=== PATIENT | male | born 1985 | race Caucasian/White ===

== ENCOUNTER 2021-01-14 15:51 | Outpatient (REF) | payer OTHER, SELFPAY ==
[2021-01-14 16:26] LABS: MANUAL DIFF FLAG NO
[2021-01-14 16:31] LABS: Basophils Absolute Auto 0.2 X10*3/uL (0.0-0.2); Eosinophils Absolute Auto 0.2 X10*3/uL (0.0-0.4); Eosinophils Percent Auto 1.5 % (0-4); Hematocrit 48.6 % (42-52); Hemoglobin 16.7 g/dl (14.0-18.0); Imm Gran Abs Auto 0.06 X10*3/uL (0.00-0.03); Imm Gran Pct Auto 0.4 % (0.0-0.4); Lymphocytes Percent Auto 20.7 % (20-40); Mean Corpuscular HGB Conc 34.4 g/dl (31.0-36.0); Mean Corpuscular Hemoglobin 29.9 pg (27.0-33.0); Mean Corpuscular Volume 86.9 fL (80-98); Mean Platelet Volume 10.3 fL (9.4-12.4); Neutrophils Percent Auto 69.4 % (45-73); Platelet Count 427 X10*3/uL (160-400); Red Blood Count 5.59 X10*6/uL (4.60-5.80); Red Cell Distribution Width 13.2 % (11.0-16.0); White Blood Count 14.5 X10*3/uL (4.8-10.8)
[2021-01-14 16:52] LABS: Alanine Aminotransferase 43 U/L (0-40); Albumin Level 4.6 g/dL (3.5-5.0); Alkaline Phosphatase 98 U/L (39-117); Anion Gap 16 (12-20); Aspartate Amino Transferase 31 U/L (5-37); Bilirubin Total 0.8 mg/dL (0.0-1.0); Blood Urea Nitrogen 13 mg/dL (9-16); C Reactive Protein 0.64 mg/dL (< or = 0.50); Calcium 9.9 mg/dL (8.4-10.2); Carbon Dioxide 27 mmol/L (22-29); Chloride 99 mmol/L (96-108); Cholesterol 180 mg/dL; Estimated Glomerular Filt Rate > 60; Glucose Fasting 151 mg/dL (60-99); HDL Cholesterol 38 mg/dL; LDL Cholesterol Calculated 87 mg/dl; Potassium 4.6 mmol/L (3.3-5.1); Sodium 137 mmol/L (135-145); Total Protein 7.7 g/dL (6.5-8.0); Triglycerides 275 mg/dL
[2021-01-14 17:10] LABS: Erythrocyte Sedimentation Rate 4 MM/HR (0-15)
[2021-01-14 17:14] LABS: TSH reflex Free T4 1.61 uIU/mL (0.32-4.0)
[2021-01-18 16:56] LABS: Testosterone, Free 52.4 pg/mL (35.0-155.0); Testosterone, Total 222 ng/dL (250-1100)
== END 2021-01-14 15:52 | disposition home or self-care (01) ==
LOC: HO.LAB 15:51
PROVIDERS: PCP Nurse Practitioner Family; Visit Provider Nurse Practitioner Family
DX: R19.4 Change in bowel habit (principal); R53.83 Other fatigue
CPT/HCPCS: 36415; 80053; 80061; 84402; 84403; 84443; 85025; 85652; 86140

== ENCOUNTER 2021-01-21 10:01 | Outpatient (REF) | payer OTHER, SELFPAY ==
--- NOTE | ~2021-01-21 | US_ITS ---
EXAMINATION: US ABDOMEN COMPLETE CLINICAL INFORMATION: Change in bowel habit. COMPARISON: Ultrasound abdomen 09/12/2019. Ultrasound renals 12/30/2015. TECHNIQUE: Real-time imaging of the abdominal viscera. FINDINGS: PANCREAS: Normal. ABDOMINAL AORTA: The proximal, mid, and distal segments are normal in caliber. INFERIOR VENA CAVA: Visualized portions are normal. LIVER: The liver is normal in size. The liver contour is normal. There is diffuse increased liver echogenicity. No focal hepatic lesion. There is no intrahepatic biliary duct dilatation seen. GALLBLADDER: The gallbladder is physiologically distended without evidence of stones, sludge, polyps, or wall thickening. There is echogenic bile or sludge visualized. COMMON BILE DUCT: Normal in caliber measuring 0.71 cm in diameter. RIGHT KIDNEY: There are multiple anechoic cysts. 1. A lower pole cyst measures 2.5 x 2.0 x 2.0 cm with calcification in the wall. 2. Midpole cyst measures 1.3 x 1.2 x 1.3 cm. 3. A midpole cyst measures 1.5 x 1.5 x 1.8 cm. 4. An upper pole cyst measures 1.6 x 1.4 x 1.5 cm. There is echogenic lesion in the upper pole measuring 0.6 x 0.65 x 0.74 cm suggestive of angiomyolipoma. Also visualized an echogenic lesion with shadowing in the midpole likely cortical stone or calcification measuring 0.30 x 0.25 x 0.30 cm. No hydronephrosis or renal calculi. The kidney measures 14.0 cm in maximum dimension. LEFT KIDNEY: There is anechoic cyst in midpole measuring 1.6 x 1.7 x 1.8 cm. There is an echogenic lesion upper pole measuring 0.83 x 0.71 x 0.63 cm. There is no hydronephrosis. No renal calculi or focal parenchymal lesions. The kidney measures 12.6 cm in maximum dimension. SPLEEN: Small echogenic splenule seen previously is not visualized at this time. The spleen measures 15.6 cm in maximum dimension and is enlarged. FREE FLUID: None. US/US abdomen complete IMPRESSION: Diffusely echogenic liver without any focal lesion. Gallbladder echogenic bile versus sludge. No echogenic stone or wall thickening. Mild splenomegaly.
== END 2021-01-21 10:02 | disposition home or self-care (01) ==
LOC: HO.HMGCX 10:01
PROVIDERS: Visit Provider Nurse Practitioner Family
DX: N28.1 Cyst of kidney, acquired (principal); R19.4 Change in bowel habit; D72.829 Elevated white blood cell count, unspecified
CPT/HCPCS: 76700

== ENCOUNTER 2021-03-19 14:00 | Outpatient (REF) | payer OTHER, SELFPAY ==
[2021-03-19 15:41] LABS: MANUAL DIFF FLAG NO
[2021-03-19 15:50] LABS: Basophils Absolute Auto 0.1 X10*3/uL (0.0-0.2); Basophils Percent Auto 0.9 % (0-2); Eosinophils Absolute Auto 0.2 X10*3/uL (0.0-0.4); Eosinophils Percent Auto 1.2 % (0-4); Hematocrit 45.8 % (42-52); Hemoglobin 15.5 g/dl (14.0-18.0); Imm Gran Abs Auto 0.07 X10*3/uL (0.00-0.03); Imm Gran Pct Auto 0.5 % (0.0-0.4); Lymphocytes Absolute Auto 2.6 X10*3/uL (1.2-4.9); Mean Corpuscular HGB Conc 33.8 g/dl (31.0-36.0); Mean Corpuscular Hemoglobin 29.6 pg (27.0-33.0); Mean Corpuscular Volume 87.6 fL (80-98); Mean Platelet Volume 10.7 fL (9.4-12.4); Monocytes Percent Auto 7.5 % (2-11); Neutrophils Absolute Auto 8.9 X10*3/uL (2.0-8.3); Neutrophils Percent Auto 69.9 % (45-73); Platelet Count 368 X10*3/uL (160-400); Red Blood Count 5.23 X10*6/uL (4.60-5.80); Red Cell Distribution Width 13.2 % (11.0-16.0); White Blood Count 12.8 X10*3/uL (4.8-10.8)
[2021-03-19 15:52] LABS: C Reactive Protein 0.87 mg/dL (< or = 0.50)
[2021-03-20 21:52] LABS: Gliadin Deamidated IgA Ab 7 Units; Gliadin Deamidated IgG Ab 3 Units; Transglutaminase Ab IgG 1 U/mL; Transglutaminase IgA 1 U/mL
== END 2021-03-19 14:01 | disposition home or self-care (01) ==
LOC: HO.LAB 14:00
PROVIDERS: PCP Nurse Practitioner Family; Referring Provider Nurse Practitioner Family; Visit Provider Nurse Practitioner
DX: R19.7 Diarrhea, unspecified (principal); K82.8 Other specified diseases of gallbladder; R10.9 Unspecified abdominal pain; D72.829 Elevated white blood cell count, unspecified; R68.81 Early satiety; E11.9 Type 2 diabetes mellitus without complications; Z96.41 Presence of insulin pump (external) (internal)
CPT/HCPCS: 81479; 82397; 83516; 83520; 85025; 86140; 88346; 88350

== ENCOUNTER 2021-03-24 06:00 | Outpatient (REF) | payer OTHER, SELFPAY ==
[2021-03-25 11:51] LABS: CDIFF Ag Negative (Negative); CDIFF Internal ctrl Dots and bkg OK (V); CDiff Toxin Negative (Negative)
== END 2021-03-24 06:01 | disposition home or self-care (01) ==
LOC: HO.LNP 06:00
PROVIDERS: Visit Provider Nurse Practitioner
DX: R19.7 Diarrhea, unspecified (principal)
CPT/HCPCS: 87324; 87449

== ENCOUNTER 2021-03-25 10:18 | Outpatient (REF) | payer OTHER, SELFPAY | END 2021-03-25 10:19 | disposition home or self-care (01) | LOC: HO.LNP 10:18 | PROVIDERS: Visit Provider Nurse Practitioner | DX: Z13.89 Encounter for screening for other disorder (principal) ==

== ENCOUNTER → 2021-04-23 14:26 | Outpatient (BNVA) | payer OTHER, SELFPAY | PROVIDERS: PCP Nurse Practitioner Family; Referring Provider Nurse Practitioner Family; Visit Provider Nurse Practitioner | DX: K82.8 Other specified diseases of gallbladder (principal); K58.2 Mixed irritable bowel syndrome; D72.829 Elevated white blood cell count, unspecified; R68.81 Early satiety; R19.7 Diarrhea, unspecified; R10.9 Unspecified abdominal pain | CPT/HCPCS: 99212 ==

== ENCOUNTER → 2021-05-06 08:52 | Outpatient (REF) | payer OTHER, SELFPAY ==
--- NOTE | ~2021-05-06 | NM_ITS ---
EXAMINATION: NM BILIARY TRACT WITH ORAL FATTY MEAL CLINICAL INFORMATION: Abdominal pain. COMPARISON: No previous biliary scan is available for comparison. Abdominal ultrasound dated 01/21/2021 is available for comparison. TECHNIQUE: Serial gamma scintillation camera images were obtained over the abdomen for a total observation period of 120 minutes following the intravenous administration of 5.0 mCi Tc-99m Mebrofenin. FINDINGS: There is good concentration of activity in the liver by 5 minutes post injection. Biliary activity is visualized by 15 minutes. The gallbladder is well visualized by 35 minutes. Small bowel is well visualized by 18 minutes. At 60 minutes post Mebrofenin injection, 8 ounces of Ensure-plus Brand was administered orally and an additional 60 minutes of images were obtained. There is good emptying of the gallbladder following ingestion of the fatty meal. At the end of the study there is good clearance of activity from the liver and visualization of diffuse small bowel activity. The calculated gallbladder ejection fraction is 49% (normal gallbladder ejection fraction using Ensure supplement orally is greater than 33%). NM/NM hepatobiliary wo pharm IMPRESSION: Visualization of the gallbladder is evidence of a patent cystic duct and strong evidence against the diagnosis of acute cholecystitis. The common bile duct is patent. Gallbladder emptying and ejection fraction are normal. Liver function appears normal.
== END ==
LOC: HO.NUCMED 08:52
PROVIDERS: Visit Provider Nurse Practitioner
DX: R10.9 Unspecified abdominal pain (principal); K82.8 Other specified diseases of gallbladder; R19.7 Diarrhea, unspecified; D72.829 Elevated white blood cell count, unspecified
CPT/HCPCS: 78226; A9537

== ENCOUNTER 2021-05-07 08:48 | Outpatient (REF) | payer OTHER, SELFPAY ==
[2021-05-07 13:57] LABS: Creatinine Urine 135.41 mg/dL; Microalbum/Creatinine Ratio Ur 16.2 ug/mg cr
== END 2021-05-07 08:49 | disposition home or self-care (01) ==
LOC: HO.10HDL 08:48
PROVIDERS: PCP Nurse Practitioner Family; Visit Provider Nurse Practitioner Gerontology
DX: E11.9 Type 2 diabetes mellitus without complications (principal)
CPT/HCPCS: 82043; 82947; 83036; 99212

== ENCOUNTER → 2021-05-19 07:48 | Outpatient (REF) | payer OTHER, SELFPAY ==
--- NOTE | ~2021-05-19 | NM_ITS ---
EXAMINATION: RADIONUCLIDE SOLID FOOD GASTRIC EMPTYING 4-HOUR STUDY CLINICAL INFORMATION: Early satiety. COMPARISON: No previous gastric emptying study is available for comparison. TECHNIQUE: A standard meal consisting of 4 oz of Egg Beaters brand tagged with 920 microcuries Tc-99m Sulfur Colloid, 8 oz water and 2 slices of toast with jelly was administered orally to the patient. Images were obtained using a dual head gamma camera in the anterior and posterior projections over of the stomach immediately post ingestion and at hourly intervals up to 3 hours post ingestion. Images were not obtained at 4 hours due to the minimal retention at 3 hours. The anterior and posterior counts at each time interval were averaged using the geometric mean and expressed as percentage of the immediate post ingestion counts. FINDINGS: There is good visualization of activity in the stomach immediately post ingestion. As the study progresses, there is good clearance of activity from the stomach and visualization of progressively increasing small bowel activity. By the end of the study, there is almost no retention noted in the stomach. Retention in the stomach at each time interval was: 1 hour 43% (normal 37%-90%) 2 hours 12% (normal 30%-60%) 3 hours 5% 4 hours (Not Obtained) (normal 0%-10%) NM/NM gastric emptying study IMPRESSION: Normal solid food gastric emptying study.
== END ==
LOC: HO.NUCMED 07:48
PROVIDERS: Visit Provider Nurse Practitioner
DX: R68.81 Early satiety (principal)
CPT/HCPCS: 78264; A9541

== ENCOUNTER → 2021-06-22 14:27 | Outpatient (BNVA) | payer OTHER, SELFPAY | PROVIDERS: PCP Nurse Practitioner Family; Referring Provider Nurse Practitioner Family; Visit Provider Nurse Practitioner | DX: K58.2 Mixed irritable bowel syndrome (principal); R68.81 Early satiety; D72.829 Elevated white blood cell count, unspecified; Z87.19 Personal history of other diseases of the digestive system | CPT/HCPCS: 99212 ==

== ENCOUNTER → 2021-07-13 14:26 | Outpatient (BNVA) | payer OTHER, SELFPAY | PROVIDERS: PCP Nurse Practitioner Family; Visit Provider Nurse Practitioner ==

== ENCOUNTER → 2021-07-20 13:45 | Outpatient (BNVA) | payer OTHER, SELFPAY | PROVIDERS: PCP Nurse Practitioner Family; Visit Provider Nurse Practitioner Gerontology ==

== ENCOUNTER → 2021-08-17 10:56 | Outpatient (BNVA) | payer OTHER, SELFPAY | PROVIDERS: PCP Nurse Practitioner Family; Visit Provider Nurse Practitioner Gerontology | DX: E11.65 Type 2 diabetes mellitus with hyperglycemia (principal) | CPT/HCPCS: 82947; 83036; 96372; J1815 ==

== ENCOUNTER 2021-08-19 09:38 | Outpatient (REF) | payer OTHER, SELFPAY ==
[2021-08-19 09:55] LABS: MANUAL DIFF FLAG NO
[2021-08-19 10:43] LABS: Basophils Absolute Auto 0.1 X10*3/uL (0.0-0.2); Basophils Percent Auto 1.2 % (0-2); Eosinophils Absolute Auto 0.2 X10*3/uL (0.0-0.4); Eosinophils Percent Auto 2.1 % (0-4); Hematocrit 42.3 % (42-52); Hemoglobin 14.7 g/dl (14.0-18.0); Imm Gran Abs Auto 0.07 X10*3/uL (0.00-0.03); Imm Gran Pct Auto 0.7 % (0.0-0.4); Lymphocytes Absolute Auto 2.5 X10*3/uL (1.2-4.9); Mean Corpuscular HGB Conc 34.8 g/dl (31.0-36.0); Mean Corpuscular Hemoglobin 30.5 pg (27.0-33.0); Mean Corpuscular Volume 87.8 fL (80-98); Mean Platelet Volume 10.4 fL (9.4-12.4); Monocytes Absolute Auto 0.8 X10*3/uL (0.1-1.2); Monocytes Percent Auto 7.9 % (2-11); Neutrophils Absolute Auto 6.8 X10*3/uL (2.0-8.3); Neutrophils Percent Auto 64.1 % (45-73); Platelet Count 337 X10*3/uL (160-400); Red Blood Count 4.82 X10*6/uL (4.60-5.80); Red Cell Distribution Width 13.6 % (11.0-16.0); White Blood Count 10.6 X10*3/uL (4.8-10.8)
[2021-08-19 11:01] LABS: Creatinine Urine 101.89 mg/dL; Microalbum/Creatinine Ratio Ur 14.7 ug/mg cr
[2021-08-19 11:06] LABS: Alanine Aminotransferase 37 U/L (0-40); Alkaline Phosphatase 133 U/L (39-117); Anion Gap 14 (12-20); Aspartate Amino Transferase 22 U/L (5-37); Bilirubin Total 1.2 mg/dL (0.0-1.0); Blood Urea Nitrogen 13 mg/dL (9-16); Calcium 9.2 mg/dL (8.4-10.2); Carbon Dioxide 23 mmol/L (22-29); Chloride 99 mmol/L (96-108); Cholesterol 186 mg/dL; Estimated Glomerular Filt Rate > 60; Glucose Fasting 349 mg/dL (60-99); Potassium 4.8 mmol/L (3.3-5.1); Sodium 131 mmol/L (135-145); Total Protein 6.9 g/dL (6.5-8.0); Triglycerides 773 mg/dL
[2021-08-19 11:24] LABS: HDL Cholesterol 23 mg/dL
[2021-08-19 11:26] LABS: Thyroid Stimulating Hormone 1.32 uIU/mL (0.32-4.0); Vitamin D 25-OH Total 14.2 ng/mL (>30)
== END 2021-08-19 09:39 | disposition home or self-care (01) ==
LOC: HO.LAB 09:38
PROVIDERS: PCP Nurse Practitioner Family; Visit Provider Nurse Practitioner Gerontology
DX: D72.829 Elevated white blood cell count, unspecified (principal); R19.4 Change in bowel habit; E11.65 Type 2 diabetes mellitus with hyperglycemia; E55.9 Vitamin D deficiency, unspecified
CPT/HCPCS: 36415; 80053; 80061; 82043; 82306; 84443; 85025

== ENCOUNTER 2021-09-15 23:32 | Emergency (ER) | payer OTHER, SELFPAY ==
--- NOTE | ~2021-09-15 | XR_ITS ---
EXAMINATION: XR CHEST CLINICAL INFORMATION: Covid positive test, worsening shortness of breath COMPARISON: None TECHNIQUE: 2 views of the chest were obtained. FINDINGS: Lung volumes are symmetric. No focal consolidation is seen. No evidence of pneumothorax, pleural effusion, or pulmonary edema. The cardiomediastinal contour is unremarkable. No acute osseous findings are seen. XR/XR chest 2V IMPRESSION: No acute cardiopulmonary findings.
[2021-09-16 00:11] VITALS: BMI 39.3
[2021-09-16 00:26] VITALS: BP 125/77; PULSE 84; RESP 18; TEMP 36.9; O2SAT 98
[2021-09-16 00:49] LABS: COVID-19 Test Negative (Negative); IDNOW Serial# 55D5AD1C
--- NOTE | 2021-09-16 01:35 | ED.GENADULT ---
HPI - General Adult General Chief complaint: Upper Respiratory Symptoms Stated complaint: COVID+ Time Seen by Provider: 09/16/21 00:45 Source: patient Mode of arrival: ambulatory History of Present Illness HPI narrative: 36-year-old male with past medical history of diabetes presents after having taken a home COVID-19 test that he states was positive and came in for further evaluation because he has a that is 35 weeks . He reports headache, mild nausea with subjective fevers and shortness of breath for a few days. Related Data Previous Rx's Medication Instructions Recorded blood-glucose sensor (Dexcom G6 #3 ea 01/19/21 Sensor) blood-glucose transmitter (Dexcom #1 ea 01/19/21 G6 Transmitter) amoxicillin 500 mg-potassium 1 tab PO BID 10 Days #20 tab 06/22/21 clavulanate 125 mg tablet (Augmentin) pioglitazone 30 mg tablet 30 mg PO DAILY #90 tab 06/22/21 blood-glucose meter (FreeStyle #1 ea 07/07/21 [place] Lite) glucagon 0.5 mg/0.1 mL 1 mg (0.2 mL) SUBCUT Q20M PRN #0.2 07/10/21 subcutaneous syringe ml pen needle, diabetic 32 gauge x #100 ea 07/10/2132 (BD Celina 2nd Gen Pen Needle) aaxbif-gtqkqtil-hkzkygd 1 cap PO QID 30 Days #120 cap 07/13/21 24,000-76,000-120,000 unit capsule,delayed rel (Creon) lubiprostone 8 mcg capsule 8 mcg PO BID 30 Days #60 cap 07/13/21 (Amitiza) atorvastatin 20 mg tablet 20 mg PO BEDTIME #90 tab 07/20/21 blood sugar diagnostic (FreeStyle #150 ea 08/17/21 Lite Strips) blood-glucose meter (FreeStyle #1 ea 08/17/21 Lite Meter) insulin regular hum U-500 conc See Rx Instructions SUBCUT TID 30 08/17/21 (Humulin R U-500 (Conc) Insulin Days #18 ml Kwikpen) lancets 28 gauge (FreeStyle #200 ea 08/17/21 Lancets) cholecalciferol (vitamin D3) 1,250 1,250 mcg PO QWEEK #8 cap 08/24/21 mcg (50,000 unit) capsule cholecalciferol (vitamin D3) 50 50 mcg PO DAILY #30 cap 08/24/21 mcg (2,000 unit) capsule dexamethasone 4 mg tablet 4 mg PO TID 6 Days #18 tab 08/29/21 (Decadron) tramadol 50 mg tablet 50 mg PO BID PRN #14 tab 09/03/21 albuterol sulfate 90 mcg/actuation 2 puff INHALATION Q6H PRN 30 Days 09/15/21 aerosol inhaler #8.5 g pen needle, diabetic 32 gauge x #100 ea 09/15/21 (BD Ultra-Fine Celina Pen Needle) prednisone 50 mg tablet 50 mg PO DAILY 5 Days #5 tab 09/15/21 Allergies Allergy/AdvReac Type Severity Reaction Status Date / Time ibuprofen Allergy Mild unknown Verified 09/12/21 10:01 pyrantel Allergy Mild hives Verified 09/13/21 08:01 ketorolac [From TORADOL] Allergy Unknown GI UPSET Verified 09/12/21 10:01 NSAIDS (Non-Steroidal Allergy Unknown GI UPSET Verified 09/12/21 10:01 Anti-Inflamma [NSAIDS (NON-STEROIDAL ANTI-INFLAMMA] Review of Systems Review of Systems: Pertinent positives and negatives as stated in HPI 10 point review of systems is otherwise negative. [facility] Past Medical History Source: nursing notes reviewed Medical History Chronic osteomyelitis of right ulna DDD (degenerative disc disease), lumbar Diabetes type 2, uncontrolled Hx of pancreatitis Lumbar spinal stenosis Mild sleep apnea Type 2 diabetes mellitus Vitamin D deficiency Surgical History Status post osteotomy Family History Family History Father No problems noted. Mother Graves disease Sister Type 2 diabetes mellitus Social History Social History Alcohol intake: current Patient Tobacco Use Status: Former Tobacco user e-Cigarette/Vaping Use: Currently Using Advance Directives: No Advance Directives Information Provided: Yes Physical Exam Vital Signs: Vital Signs: Last Vital Signs Temp 98.4 F 09/16/21 01:53 Pulse 81 09/16/21 01:53 Resp 18 09/16/21 01:53 BP 124/76 09/16/21 01:53 Pulse Ox 98 09/16/21 01:53 Body Mass Index 39.3 VITAL SIGNS: Reviewed. GENERAL: Well developed, well nourished, in no acute distress. HEAD: Normocephalic/atraumatic EYES: PERRLA, EOMI OROPHARYNX: no oral lesions noted, posterior pharynx clear NECK: Supple, no adenopathy LUNGS: Normal breath sounds. No adventitious sounds or accessory muscle use. SpO2<98> CARDIOVASCULAR: Regular rate and rhythm without noted murmurs, no JVD or lower extremity edema. ABDOMEN: Soft, non-tender, non-distended with bowel sounds. NEUROLOGIC: Alert and oriented x 4. Course Course Course Narrative: 36-year-old male with history and clinical presentation consistent with viral syndrome and on review of all investigations there were no acute findings to suggest COVID-19, however patient was encouraged to continue with [id number] Tylenol/ibuprofen as needed for body aches and temperatures greater than 100.4 as well as utilizing his CPAP regularly every night for additional respiratory comfort. On review signs patient is noted to have good oxygenation on room air, and on collateral information gathering he states that his primary care provider has already sent in a prescription for albuterol as well as prednisone for additional symptom relief. He was discharged home in stable condition. Medical Decision Making Lab Data Labs: Lab Results 09/16/21 Range/Units 00:21 COVID-19 (COMPA) Negative (Negative) COVID-19 Clin Com See Note Discharge Plan Discharge Clinical Impression: Viral syndrome Patient Disposition: Home, Self-Care Instructions: Viral Syndrome (ED) Additional Instructions: 1. Use CPAP at night. 2. Resume albuterol/prednisone prescribed by your PCP. 3. Recommend repeat COVID testing in 3-4 days. 4. Over the counter Tylenol/Ibuprofen for bodyaches, fevers, chills. 5. Follow up with your PCP. Return to the ER for worsening symptoms. Prescriptions: No Action (DME) Dexcom G6 Transmitter Device See Rx Instructions .ROUTE .MEDSUPPLY Qty: 1 RF: 3 (DME) Dexcom G6 Sensor Device See Rx Instructions .ROUTE .MEDSUPPLY Qty: 3 RF: 3 pioglitazone 30 mg tablet 30 mg PO DAILY Qty: 90 RF: 2 (DME) blood-glucose meter [FreeStyle [place] Lite] Kit See Rx Instructions .ROUTE .MEDSUPPLY Qty: 1 RF: 0 (DME) pen needle, diabetic [BD Celina 2nd Gen Pen Needle] 32 gauge x 5/32 needle See Rx Instructions .ROUTE .MEDSUPPLY Qty: 100 RF: 6 glucagon 0.5 mg/0.1 mL syringe 1 mg subcut Q20M PRN (Reason: hypoglycemia) Qty: 0.2 RF: 3 cholecalciferol (vitamin D3) 1,250 mcg (50,000 unit) capsule 1,250 mcg PO QWEEK Qty: 8 RF: 0 cholecalciferol (vitamin D3) 50 mcg (2,000 unit) capsule 50 mcg PO DAILY Qty: 30 RF: 11 (DME) pen needle, diabetic [BD Ultra-Fine Celina Pen Needle] 32 gauge x 5/32 needle See Rx Instructions .ROUTE .MEDSUPPLY Qty: 100 RF: 11 prednisone 50 mg tablet 50 mg PO DAILY 5 Days Qty: 5 RF: 0 albuterol sulfate 90 mcg/actuation HFA aerosol inhaler 2 puff inhalation Q6H PRN (Reason: shortness of breath or wheezing) 30 Days Qty: 8.5 RF: 1 tramadol 50 mg tablet 50 mg PO BID PRN (Reason: pain) Qty: 14 RF: 0 dexamethasone [Decadron] 4 mg tablet 4 mg PO TID 6 Days Qty: 18 RF: 0 atorvastatin 20 mg tablet 20 mg PO BEDTIME Qty: 90 RF: 1 amoxicillin-pot clavulanate [Augmentin] 500-125 mg tablet 1 tab PO BID 10 Days Qty: 20 RF: 0 lubiprostone [Amitiza] 8 mcg capsule 8 mcg PO BID 30 Days Qty: 60 RF: 3 Creon 24,000-76,000 -120,000 unit capsule,delayed release(DR/EC) 1 cap PO QID 30 Days Qty: 120 RF: 3 Humulin R U-500 (Conc) Kwikpen 500 unit/mL (3 mL) insulin pen See Rx Instructions subcut TID 30 Days Qty: 18 RF: 0 (DME) FreeStyle Lite Strips Strip See Rx Instructions .ROUTE .MEDSUPPLY Qty: 150 RF: 11 (DME) blood-glucose meter [FreeStyle Lite Meter] Kit See Rx Instructions .ROUTE .MEDSUPPLY Qty: 1 RF: 0 (DME) lancets [FreeStyle Lancets] 28 gauge misc See Rx Instructions .ROUTE .MEDSUPPLY Qty: 200 RF: 11 Referrals: Dwayne Perez FNP-BC [Primary Care Provider] - 2 days Interventions: ED Discharge Assessment Last Done: 09/16/21 01:52 Discharge Date/Time: 09/16/21 01:54
[2021-09-16 01:53] VITALS: BP 124/76; PULSE 81; RESP 18; TEMP 36.9; O2SAT 98
== END 2021-09-16 01:54 | disposition home or self-care (01) ==
PROVIDERS: Emergency Provider Student in an Organized Health Care Education/Training Program; PCP Nurse Practitioner Family
DX: U07.1 COVID-19 (principal); Z79.899 Other long term (current) drug therapy; Z87.891 Personal history of nicotine dependence
CPT/HCPCS: 36415; 71046; 87635; 99283; 99284

== ENCOUNTER → 2021-09-28 12:12 | Outpatient (BNVA) | payer OTHER, SELFPAY | PROVIDERS: PCP Nurse Practitioner Family; Referring Provider Nurse Practitioner Family; Visit Provider Nurse Practitioner | DX: K58.2 Mixed irritable bowel syndrome (principal); E66.01 Morbid (severe) obesity due to excess calories; E11.9 Type 2 diabetes mellitus without complications; B37.89 Other sites of candidiasis; Z68.39 Body mass index [BMI] 39.0-39.9, adult | CPT/HCPCS: 99212 ==

== ENCOUNTER → 2021-10-01 14:23 | Outpatient (BNVA) | payer OTHER, SELFPAY | PROVIDERS: PCP Nurse Practitioner Family; Visit Provider Nurse Practitioner Gerontology | DX: E11.65 Type 2 diabetes mellitus with hyperglycemia (principal); E78.1 Pure hyperglyceridemia; E66.01 Morbid (severe) obesity due to excess calories; Z68.39 Body mass index [BMI] 39.0-39.9, adult; Z79.4 Long term (current) use of insulin | CPT/HCPCS: 82947; 99212 ==

== ENCOUNTER → 2021-10-07 11:01 | Outpatient (BNVA) | payer OTHER, SELFPAY | PROVIDERS: PCP Nurse Practitioner Family; Visit Provider Registered Nurse Diabetes Educator | DX: E11.65 Type 2 diabetes mellitus with hyperglycemia (principal); E66.9 Obesity, unspecified; Z79.4 Long term (current) use of insulin | CPT/HCPCS: 99211 ==

== ENCOUNTER 2021-10-14 23:36 | Emergency (ER) | payer OTHER, SELFPAY | END 2021-10-15 00:22 | disposition left against medical advice (07) | PROVIDERS: Emergency Provider Emergency Medicine | DX: R07.9 Chest pain, unspecified (principal) ==

== ENCOUNTER 2021-10-15 12:27 | Emergency (ER) | payer OTHER, SELFPAY ==
--- NOTE | ~2021-10-15 | CT_ITS ---
EXAMINATION: CT RIGHT LOWER EXTREMITY WITH CONTRAST CLINICAL INFORMATION: Right lower extremity pain, edema and paresthesias. COMPARISON: No similar priors. TECHNIQUE: Axial, coronal and sagittal images of the right lower extremity were obtained following the administration of intravenous contrast (85 mL of Omnipaque 350). FINDINGS: Osseous structures: No evidence of acute fractures or malalignment. No suspicious focal bony lesions. There are a few small nonaggressive appearing sclerotic lesions in the distal femur and proximal tibia which favored to represent bone islands. Small flabella. Tiny osteophytes of the tibiotalar joint reflecting mild degenerative osteoarthritis. No erosions. Soft tissues: There is superficial subcutaneous edema/thickening, which is more prominent in the lateral surface of the thigh. No drainable collection or abscess formation. No unexpected radiopaque foreign bodies. CT/CT lower leg RT w con IMPRESSION: No acute fractures or malalignment. Diffuse soft tissue edema which is more prominent in the lateral surface of the thigh. Correlate clinically for cellulitis/phlegmonous changes. This could also represent gravitational lower extremity edema. No drainable collection or abscess.
--- NOTE | ~2021-10-15 | US_ITS ---
EXAMINATION: US VENOUS ULTRASOUND WITH DOPPLER LOWER EXTREMITY, LEFT CLINICAL INFORMATION: Pain and swelling COMPARISON: None TECHNIQUE: Ultrasound of the deep veins is performed from the hip to the calf with compression sonography and color and pulse Doppler assessment. Spectral analysis with color-flow imaging is performed. FINDINGS: There is normal venous compression and respiratory variation and augmented flow. The visualized common femoral vein, superficial femoral vein, profunda femoral vein, popliteal vein, and the trifurcation region shows no evidence of deep venous thrombosis. There is no significant popliteal fossa cyst. Mild soft tissue swelling. If the patient's symptoms persist, followup ultrasound in 5 days 7 days might be of value to exclude proximal propagation from a non-visualized calf vein. US/US venous duplex LE LT IMPRESSION: No DVT demonstrated in the left lower extremity.
--- NOTE | ~2021-10-15 | US_ITS ---
EXAMINATION: US VENOUS ULTRASOUND WITH DOPPLER LOWER EXTREMITY, RIGHT CLINICAL INFORMATION: Pain and edema COMPARISON: None TECHNIQUE: Ultrasound of the deep veins is performed from the hip to the calf with compression sonography and color and pulse Doppler assessment. Spectral analysis with color-flow imaging is performed. FINDINGS: There is normal venous compression and respiratory variation and augmented flow. The visualized common femoral vein, superficial femoral vein, profunda femoral vein, popliteal vein, and the trifurcation region shows no evidence of deep venous thrombosis. There is no significant popliteal fossa cyst. No popliteal artery aneurysm. US/US venous duplex LE RT IMPRESSION: No acute DVT demonstrated in the right lower extremity.
[2021-10-15 13:02] VITALS: BP 151/75; PULSE 107; RESP 20; TEMP 36.5; O2SAT 96; BMI 39.7
--- NOTE | 2021-10-15 15:44 | ED.LOWEXIN ---
HPI - Extremity Injury (Lower) General Chief Complaint: Extremity Injury, Lower <Lynn Fitzgerald NP - Last Filed: 10/15/21 17:52> Stated Complaint: ?DVT <Lynn Fitzgerald NP - Last Filed: 10/15/21 17:52> Time Seen by Provider: 10/15/21 13:59 <Lynn Fitzgerald NP - Last Filed: 10/15/21 17:52> Source: patient <Lynn Fitzgerald NP - Last Filed: 10/15/21 17:52> Mode of arrival: ambulatory <Lynn Fitzgerald NP - Last Filed: 10/15/21 17:52> Limitations: no limitations <Lynn Fitzgerald NP - Last Filed: 10/15/21 17:52> History of Present Illness HPI Narrative: 36-year-old male with a history of insulin-dependent diabetes, obesity, high cholesterol here with complaints of right calf swelling, pain, intermittent paresthesias over the last 3-4 days. Seen at urgent care and sent in for further evaluation. No injury or trauma. No recent travel, no recent surgery. No history of DVTs or PE. No family history of same. <Lynn Fitzgerald NP - Last Filed: 10/15/21 17:52> Related Data Home Medications: Previous Rx's Medication Instructions Recorded blood-glucose sensor (Dexcom G6 #3 ea 01/19/21 Sensor) blood-glucose transmitter (Dexcom #1 ea 01/19/21 G6 Transmitter) blood-glucose meter (FreeStyle #1 ea 07/07/21 Rembrandt Lite) glucagon 0.5 mg/0.1 mL 1 mg (0.2 mL) SUBCUT Q20M PRN #0.2 07/10/21 subcutaneous syringe ml [id number] 1 cap PO QID 30 Days #120 cap 07/13/21 24,000-76,000-120,000 unit capsule,delayed rel (Creon) atorvastatin 20 mg tablet 20 mg PO BEDTIME #90 tab 07/20/21 blood sugar diagnostic (FreeStyle #150 ea 08/17/21 Lite Strips) blood-glucose meter (FreeStyle #1 ea 08/17/21 Lite Meter) lancets 28 gauge (FreeStyle #200 ea 08/17/21 Lancets) cholecalciferol (vitamin D3) 1,250 1,250 mcg PO QWEEK #8 cap 08/24/21 mcg (50,000 unit) capsule cholecalciferol (vitamin D3) 50 50 mcg PO DAILY #30 cap 08/24/21 mcg (2,000 unit) capsule albuterol sulfate 90 mcg/actuation 2 puff INHALATION Q6H PRN 30 Days 09/15/21 aerosol inhaler #8.5 g pen needle, diabetic 31 gauge x #100 ea 09/16/2103/15 (BD Ultra-Fine Short Pen Needle) amoxicillin 500 mg-potassium 1 tab PO BID 10 Days #20 tab 09/28/21 clavulanate 125 mg tablet (Augmentin) fluconazole 100 mg tablet 100 mg PO DAILY 5 Days #5 tab 09/28/21 (Diflucan) lubiprostone 24 mcg capsule 24 mcg PO BID 30 Days #60 cap 09/28/21 (Amitiza) fenofibrate 54 mg tablet 54 mg PO DAILY #30 tab 10/01/21 insulin regular hum U-500 conc See Rx Instructions SUBCUT TID 30 10/01/21 (Humulin R U-500 (Conc) Insulin Days #18 ml Kwikpen) tramadol 50 mg tablet 50 mg PO BID PRN #14 tab 10/10/21 furosemide 20 mg tablet (Lasix) 20 mg PO DAILY 20 Days #20 tab 10/15/21 oxycodone-acetaminophen 5 mg-325 1 tab PO TID PRN #9 tab 10/15/21 mg tablet (Percocet) <Lynn Fitzgerald NP - Last Filed: 10/15/21 17:52> Allergies/Adverse Reactions: Allergies Allergy/AdvReac Type Severity Reaction Status Date / Time ibuprofen Allergy Mild unknown Verified 10/15/21 11:33 pyrantel Allergy Mild hives Verified 10/15/21 11:33 ketorolac [From TORADOL] Allergy Unknown GI UPSET Verified 10/15/21 11:33 NSAIDS (Non-Steroidal Allergy Unknown GI UPSET Verified 10/15/21 11:33 Anti-Inflamma [NSAIDS (NON-STEROIDAL ANTI-INFLAMMA] <Lynn Fitzgerald NP - Last Filed: 10/15/21 17:52> Review of Systems Review of Systems: Yes all other systems are reviewed and are negative <Lynn Fitzgerald NP - Last Filed: 10/15/21 17:52> Constitutional: Constitutional: Reports no additional constitutional complaints, Denies body ache(s), Denies chills, Denies fever(s), Denies headache(s) and Denies weakness <Lynn Fitzgerald NP - Last Filed: 10/15/21 17:52> Eyes: Eyes: Reports no additional eye complaints and Denies change in vision <Lynn Fitzgerald PLASTER WHITTLER - Last Filed: 10/15/21 17:52> ENT: Reports system reviewed and no additional complaints, except as documented, Denies dizziness, Denies headache(s), Denies nasal congestion, Denies nasal discharge and Denies neck pain <Lynn Fitzgerald NP - Last Filed: 10/15/21 17:52> Cardiovascular: Cardiovascular: Reports no additional cardiovascular complaints, Denies chest pain, Reports leg edema and Denies dyspnea <Lynn Fitzgerald NP - Last Filed: 10/15/21 17:52> Respiratory: Respiratory: Reports no additional respiratory complaints, Denies cough and Denies dyspnea <Lynn Fitzgerald NP - Last Filed: 10/15/21 17:52> Gastrointestinal: Gastrointestinal: Reports no additional gastrointestinal complaints, Denies abdominal pain, Denies diarrhea, Denies nausea and Denies vomiting <Lynn Fitzgerald NP - Last Filed: 10/15/21 17:52> Genitourinary: Genitourinary: Denies urinary incontinence <Lynn Fitzgerald NP - Last Filed: 10/15/21 17:52> Musculoskeletal: Musculoskeletal: Reports no additional musculoskeletal complaints, Denies back pain, Denies arthralgias, Denies joint swelling, Denies neck pain, Denies numbness and Denies tingling <Lynn Fitzgerald NP - Last Filed: 10/15/21 17:52> Integumentary/Breasts: Skin/Breast: Reports system reviewed and no additional complaints, except as docu and Denies rash <Lynn Fitzgerald NP - Last Filed: 10/15/21 17:52> Neurologic: Reports system reviewed and no additional complaints, except as documented, Denies Abnormal speech present, Denies dizziness, Denies headache(s), Denies numbness, Denies tingling and Denies weakness <Lynn Fitzgerald NP - Last Filed: 10/15/21 17:52> REPLACED BY [facility] Past Medical History Attestation statement: The following information was validated with the patient. <Lynn Fitzgerald NP - Last Filed: 10/15/21 17:52> Source: old records reviewed and nursing notes reviewed <Lynn Fitzgerald NP - Last Filed: 10/15/21 17:52> Medical History: Medical History Chronic osteomyelitis of right ulna DDD (degenerative disc disease), lumbar Diabetes type 2, uncontrolled Diarrhea Hx of pancreatitis Hypertriglyceridemia Lumbar spinal stenosis Mild sleep apnea Obesity due to excess calories Type 2 diabetes mellitus Vitamin D deficiency <Lynn Fitzgerald NP - Last Filed: 10/15/21 17:52> Surgical History: Surgical History Status post osteotomy <Lynn Fitzgerald NP - Last Filed: 10/15/21 17:52> Family History Family History: Family History Father No problems noted. Mother Graves disease Sister Type 2 diabetes mellitus <Lynn Fitzgerald NP - Last Filed: 10/15/21 17:52> Social History Social History: Social History Household Members: Significant Other Alcohol intake: current Alcohol intake frequency: holidays/special occasions only Patient Tobacco Use Status: Former Tobacco user e-Cigarette/Vaping Use: Currently Using Advance Directives: No Advance Directives Information Provided: No <Lynn Fitzgerald NP - Last Filed: 10/15/21 17:52> Physical Exam Vital Signs: Vital Signs: Last Vital Signs Temp 98.7 F 10/15/21 20:37 Pulse 82 10/15/21 20:37 Resp 16 10/15/21 20:37 BP 138/65 10/15/21 20:37 Pulse Ox 98 10/15/21 20:37 BMI result Body Mass Index 39.7 <Lynn Fitzgerald NP - Last Filed: 10/15/21 17:52> Vital Signs: Last Vital Signs Temp 98.7 F 10/15/21 20:37 Pulse 82 10/15/21 20:37 Resp 16 10/15/21 20:37 BP 138/65 10/15/21 20:37 Pulse Ox 98 10/15/21 20:37 BMI result Body Mass Index 39.7 <JEAN CLAUDE German - Last Filed: 10/15/21 22:56> Const: General: cooperative, healthy appearing, comfortable and no acute distress <Lynn Fitzgerald NP - Last Filed: 10/15/21 17:52> Orientation/consciousness: patient oriented x3 <Lynn Fitzgerald NP - Last Filed: 10/15/21 17:52> Limitations: no limitations <Lynn Fitzgerald NP - Last Filed: 10/15/21 17:52> HENMT: Head: Yes normal to inspection <Lynn Fitzgerald NP - Last Filed: 10/15/21 17:52> Ears: hearing grossly normal bilaterally <Lynn Fitzgerald NP - Last Filed: 10/15/21 17:52> General nose exam: Normal external nose present <Lynn Fitzgerald NP - Last Filed: 10/15/21 17:52> Face and sinus: Yes normal facial exam <Lynn Fitzgerald NP - Last Filed: 10/15/21 17:52> Mouth: Normal oral and palatal mucosa present <Lynn Fitzgerald NP - Last Filed: 10/15/21 17:52> Throat: Yes posterior oropharynx normal <Lynn Fitzgerald NP - Last Filed: 10/15/21 17:52> Eyes: General: appearance normal, both eyes and all related structures <Lynn Fitzgerald NP - Last Filed: 10/15/21 17:52> Pupils: Equal, round and reactive pupils present <Lynn Fitzgerald NP - Last Filed: 10/15/21 17:52> Neck: Neck: Yes normal visual inspection <Lynn Fitzgerald PLASTER WHITTLER - Last Filed: 10/15/21 17:52> Chest: Chest palpation & inspection: normal inspection of the chest <Lynn Fitzgerald PLASTER WHITTLER - Last Filed: 10/15/21 17:52> Resp: Effort & Inspection: normal respiratory effort <Lynn Fitzgerald PLASTER WHITTLER - Last Filed: 10/15/21 17:52> Auscultation: clear to auscultation bilaterally <Lynn Fitzgerald PLASTER WHITTLER - Last Filed: 10/15/21 17:52> Cardio: Rate: regular rate <Lynn Fitzgerald PLASTER WHITTLER - Last Filed: 10/15/21 17:52> Rhythm: regular rhythm <Lynn Fitzgerald PLASTER WHITTLER - Last Filed: 10/15/21 17:52> Peripheral pulses: Peripheral pulses 2+ throughout <Lynn Fitzgerald PLASTER WHITTLER - Last Filed: 10/15/21 17:52> GI: Inspection: Yes normal to inspection <Lynn Fitzgerald PLASTER WHITTLER - Last Filed: 10/15/21 17:52> Palpation (GI): Soft to palpation and nontender <Lynn Fitzgerald PLASTER WHITTLER - Last Filed: 10/15/21 17:52> Auscultation: normal bowel sounds <Lynn Fitzgerald PLASTER WHITTLER - Last Filed: 10/15/21 17:52> Back/Spine/Pelvis: Thoracic/Lumbar Spine: thoracic and lumbar spine normal to inspection <Lynn Fitzgerald PLASTER WHITTLER - Last Filed: 10/15/21 17:52> Skin: General skin exam: no rashes or lesions noted <Lynn Fitzgerald PLASTER WHITTLER - Last Filed: 10/15/21 17:52> Neuro: General: patient oriented x3, no focal motor deficits and normal sensation to monofilament <Lynn Fitzgerald PLASTER WHITTLER - Last Filed: 10/15/21 17:52> Cranial nerves: Yes Equal, round and reactive pupils present <Lynn Fitzgerald PLASTER WHITTLER - Last Filed: 10/15/21 17:52> Cognition (Neuro): normal cognition <Lynn Fitzgerald NP - Last Filed: 10/15/21 17:52> Speech: No Abnormal speech present <Lynn Fitzgerald NP - Last Filed: 10/15/21 17:52> Gait exam (Neuro): Normal gait present <Lynn Fitzgerald NP - Last Filed: 10/15/21 17:52> Motor exam (neuro): 5/5 motor strength present throughout <Lynn Fitzgerald NP - Last Filed: 10/15/21 17:52> Extrem: Other: To the right calf there is swelling and tenderness which is worsened with plantar and dorsiflexion. There is swelling which extends over the dorsal foot. Palpable distal pulses noted. There is no warmth or redness. Sensation intact. <Lynn Fitzgerald NP - Last Filed: 10/15/21 17:52> General: Yes normal to inspection <Lynn Fitzgerald NP - Last Filed: 10/15/21 17:52> Course Course Course Narrative: 36-year-old male insulin-dependent diabetic here with right lower extremity pain, swelling and intermittent paresthesias over the last few days. On exam the patient has swelling and tenderness of the entire right leg. Distal pulses are palpated. There is no warmth or redness. There is quite a bit of swelling but the compartments are compressible. On exam sensation is intact. Distal cap refill is normal. Ultrasound is negative for DVT Clinically exam is concerning for DVT, less concerning for cellulitis. However due to history of diabetes will check labs, CT. 1750-Sign out to Santiago SILVERIO pending CT <Lynn Fitzgerald NP - Last Filed: 10/15/21 17:52> Reevaluation(s) Reevaluation #1: I re-evaluated patient noticed patient's left leg also swollen with pitting edema but not as much as right. Patient states both legs have been swollen since Tuesday. BNP will be added and left lower extremity will be added. Patient given oxycodone for pain. I reviewed [facility] they also said left leg was swollen. later during ED shift BNP came back at 321 and left lower extremity ultrasound negative. Patient will be discharged with Lasix. Patient informed this may be early CHF with BNP of 341. Patient form to follow up with primary care provider. Patient informed to return to ED for immediately for any chest pain, shortness of breath, calf pain, coughing up blood or any other concerning symptoms. Both lower extremities negative for redness or warmth to indicate cellulitis. Both lower extremities motor/neuro/vascular exam intact. Both lower extremities negative for ecchymosis to indicate fracture. History physical exam does not indicate compartments syndrome. <JEAN CLAUDE German - Last Filed: 10/15/21 22:56> Time: 22:46 <JEAN CLAUDE German - Last Filed: 10/15/21 22:56> MDM - Extremity Injury (Lower) MDM Narrative Medical decision making narrative: DVT, cellulitis <Lynn Fitzgerald NP - Last Filed: 10/15/21 17:52> Medical Records Attestation: I reviewed the patient's medical records. <Lynn Fitzgerald NP - Last Filed: 10/15/21 17:52> Lab Data Attestation: I reviewed the patient's lab results. <Lynn Fitzgerald NP - Last Filed: 10/15/21 17:52> Result diagrams: : 10/15/21 16:35 10/15/21 16:35 <Lynn Fitzgerald NP - Last Filed: 10/15/21 17:52> Labs: Lab Results 10/15/21 10/15/21 10/15/21 Range/Units 16:35 16:35 16:35 WBC 8.6 (4.8-10.8) X10*3/uL RBC 4.89 (4.60-5.80) X10*6/uL Hgb 14.4 (14.0-18.0) g/dl Hct 43.0 (42.0-52.0) % MCV 87.9 (80.0-98.0) fL MCH 29.4 (27.0-33.0) pg MCHC 33.5 (31.0-36.0) g/dl RDW 13.2 (11.0-16.0) % Plt Count 304 (160-400) X10*3/uL MPV 10.2 (9.4-12.4) fL Immature Gran % (Auto) 0.3 (0.0-0.4) % Neut % (Auto) 65.0 (45-73) % Lymph % (Auto) 23.9 (20-40) % [place] % (Auto) 7.9 (2-11) % Eos % (Auto) 2.1 (0-4) % Baso % (Auto) 0.8 (0-2) % Lymph # (Auto) 2.1 (1.2-4.9) X10*3/uL [place] # (Auto) 0.7 (0.1-1.2) X10*3/uL Eos # (Auto) 0.2 (0.0-0.4) X10*3/uL Baso # (Auto) 0.1 (0.0-0.2) X10*3/uL Abs Immat Gran (auto) 0.03 (0.00-0.03) X10*3/uL Absolute Neuts (auto) 5.6 (2.0-8.3) x10*3/uL Absolute Nucleated RBC 0.000 (0.0-0.012) X10*3/uL Nucleated RBC % (auto) 0.0 (0.0-0.2) /100WBC ESR (0-15) MM/HR PT (9.9-13.0) SEC INR (0.9-1.1) Sodium 137 (135-145) mmol/L Potassium 4.2 (3.3-5.1) mmol/L Chloride 101 (96-108) mmol/L Carbon Dioxide 28 (22-29) mmol/L Anion Gap 12 (12-20) BUN 14 (9-16) mg/dL Creatinine 0.90 (0.5-1.4) mg/dL Estim Creat Clear Calc 154.0 Estimated GFR > 60 Random Glucose 321 H (60-115) mg/dL Lactic Acid 1.2 (0.5-2.0) mmol/L Calcium 9.4 (8.4-10.2) mg/dL C-Reactive Protein 1.45 H (< or = 0.50) mg/dL 10/15/21 10/15/21 Range/Units 16:35 16:35 WBC (4.8-10.8) X10*3/uL RBC (4.60-5.80) X10*6/uL Hgb (14.0-18.0) g/dl Hct (42.0-52.0) % MCV (80.0-98.0) fL MCH (27.0-33.0) pg MCHC (31.0-36.0) g/dl RDW (11.0-16.0) % Plt Count (160-400) X10*3/uL MPV (9.4-12.4) fL Immature Gran % (Auto) (0.0-0.4) % Neut % (Auto) (45-73) % Lymph % (Auto) (20-40) % [place] % (Auto) (2-11) % Eos % (Auto) (0-4) % Baso % (Auto) (0-2) % Lymph # (Auto) (1.2-4.9) X10*3/uL [place] # (Auto) (0.1-1.2) X10*3/uL Eos # (Auto) (0.0-0.4) X10*3/uL Baso # (Auto) (0.0-0.2) X10*3/uL Abs Immat Gran (auto) (0.00-0.03) X10*3/uL Absolute Neuts (auto) (2.0-8.3) x10*3/uL Absolute Nucleated RBC (0.0-0.012) X10*3/uL Nucleated RBC % (auto) (0.0-0.2) /100WBC ESR 7 (0-15) MM/HR PT 11.6 (9.9-13.0) SEC INR 1.0 (0.9-1.1) Sodium (135-145) mmol/L Potassium (3.3-5.1) mmol/L Chloride (96-108) mmol/L Carbon Dioxide (22-29) mmol/L Anion Gap (12-20) BUN (9-16) mg/dL Creatinine (0.5-1.4) mg/dL Estim Creat Clear Calc Estimated GFR Random Glucose (60-115) mg/dL Lactic Acid (0.5-2.0) mmol/L Calcium (8.4-10.2) mg/dL C-Reactive Protein (< or = 0.50) mg/dL <Lynn Fitzgerald, PLASTER WHITTLER - Last Filed: 10/15/21 17:52> Lab Results 10/15/21 10/15/21 10/15/21 Range/Units 16:35 16:35 16:35 WBC 8.6 (4.8-10.8) X10*3/uL RBC 4.89 (4.60-5.80) X10*6/uL Hgb 14.4 (14.0-18.0) g/dl Hct 43.0 (42.0-52.0) % MCV 87.9 (80.0-98.0) fL MCH 29.4 (27.0-33.0) pg MCHC 33.5 (31.0-36.0) g/dl RDW 13.2 (11.0-16.0) % Plt Count 304 (160-400) X10*3/uL MPV 10.2 (9.4-12.4) fL Immature Gran % (Auto) 0.3 (0.0-0.4) % Neut % (Auto) 65.0 (45-73) % Lymph % (Auto) 23.9 (20-40) % [place] % (Auto) 7.9 (2-11) % Eos % (Auto) 2.1 (0-4) % Baso % (Auto) 0.8 (0-2) % Lymph # (Auto) 2.1 (1.2-4.9) X10*3/uL [place] # (Auto) 0.7 (0.1-1.2) X10*3/uL Eos # (Auto) 0.2 (0.0-0.4) X10*3/uL Baso # (Auto) 0.1 (0.0-0.2) X10*3/uL Abs Immat Gran (auto) 0.03 (0.00-0.03) X10*3/uL Absolute Neuts (auto) 5.6 (2.0-8.3) x10*3/uL Absolute Nucleated RBC 0.000 (0.0-0.012) X10*3/uL Nucleated RBC % (auto) 0.0 (0.0-0.2) /100WBC ESR (0-15) MM/HR PT (9.9-13.0) SEC INR (0.9-1.1) Sodium 137 (135-145) mmol/L Potassium 4.2 (3.3-5.1) mmol/L Chloride 101 (96-108) mmol/L Carbon Dioxide 28 (22-29) mmol/L Anion Gap 12 (12-20) BUN 14 (9-16) mg/dL Creatinine 0.90 (0.5-1.4) mg/dL Estim Creat Clear Calc 154.0 Estimated GFR > 60 Random Glucose 321 H (60-115) mg/dL Lactic Acid 1.2 (0.5-2.0) mmol/L Calcium 9.4 (8.4-10.2) mg/dL C-Reactive Protein 1.45 H (< or = 0.50) mg/dL 10/15/21 10/15/21 Range/Units 16:35 16:35 WBC (4.8-10.8) X10*3/uL RBC (4.60-5.80) X10*6/uL Hgb (14.0-18.0) g/dl Hct (42.0-52.0) % MCV (80.0-98.0) fL MCH (27.0-33.0) pg MCHC (31.0-36.0) g/dl RDW (11.0-16.0) % Plt Count (160-400) X10*3/uL MPV (9.4-12.4) fL Immature Gran % (Auto) (0.0-0.4) % Neut % (Auto) (45-73) % Lymph % (Auto) (20-40) % [place] % (Auto) (2-11) % Eos % (Auto) (0-4) % Baso % (Auto) (0-2) % Lymph # (Auto) (1.2-4.9) X10*3/uL [place] # (Auto) (0.1-1.2) X10*3/uL Eos # (Auto) (0.0-0.4) X10*3/uL Baso # (Auto) (0.0-0.2) X10*3/uL Abs Immat Gran (auto) (0.00-0.03) X10*3/uL Absolute Neuts (auto) (2.0-8.3) x10*3/uL Absolute Nucleated RBC (0.0-0.012) X10*3/uL Nucleated RBC % (auto) (0.0-0.2) /100WBC ESR 7 (0-15) MM/HR PT 11.6 (9.9-13.0) SEC INR 1.0 (0.9-1.1) Sodium (135-145) mmol/L Potassium (3.3-5.1) mmol/L Chloride (96-108) mmol/L Carbon Dioxide (22-29) mmol/L Anion Gap (12-20) BUN (9-16) mg/dL Creatinine (0.5-1.4) mg/dL Estim Creat Clear Calc Estimated GFR Random Glucose (60-115) mg/dL Lactic Acid (0.5-2.0) mmol/L Calcium (8.4-10.2) mg/dL C-Reactive Protein (< or = 0.50) mg/dL <JEAN CLAUDE German - Last Filed: 10/15/21 22:56> Imaging Data Venous US: Attestation: I personally reviewed and interpreted this imaging study as follows: <Lynn Fitzgerald NP - Last Filed: 10/15/21 17:52> Radiologist's impression: [place] [id number] Ultrasound Report Signed Patient: Enrrique Treviño MR#: [id number] : 1985 Acct:[id number] Age/Sex: 36 / M ADM Date: 10/15/21 Loc: HO.ED Attending Dr: Ordering Physician: Dona Ellis DO Date of Service: 10/15/21 Procedure(s): US venous duplex LE RT Accession Number(s): [id number] cc: Dona Ellis DO~ EXAMINATION:? US VENOUS ULTRASOUND WITH DOPPLER LOWER EXTREMITY, RIGHT CLINICAL INFORMATION:? Pain and edema COMPARISON:? None TECHNIQUE: Ultrasound of the deep veins is performed from the hip to the calf with compression sonography and color and pulse Doppler assessment. Spectral analysis with color-flow imaging is performed. FINDINGS: There is normal venous compression and respiratory variation and augmented flow. The visualized common femoral vein, superficial femoral vein, profunda femoral vein, popliteal vein, and the trifurcation region shows no evidence of deep venous thrombosis. ? There is no significant popliteal fossa cyst. No popliteal artery aneurysm. US/US venous duplex LE RT IMPRESSION: No acute DVT demonstrated in the right lower extremity. <Lynn Fitzgerald NP - Last Filed: 10/15/21 17:52> Discharge Plan Discharge Clinical Impression: Left leg swelling, Right leg swelling <Lynn Fitzgerald NP - Last Filed: 10/15/21 17:52> Patient Disposition: Home, Self-Care <Lynn Fitzgerald NP - Last Filed: 10/15/21 17:52> Instructions: Leg Edema (ED) <Lynn Fitzgerald NP - Last Filed: 10/15/21 17:52> Additional Instructions: Bilateral leg ultrasound came back negative for blood clot. History physical exam does not indicate cellulitis or abscess. BNP came back 321 which may be early congestive heart failure. You will be discharged with diuretic to help with swelling of legs. Return to the ED immediately for any chest pain, shortness of breath, worsening swelling of legs, redness, red streaks, calf pain, chest pain, shortness of breath, coughing up blood, fever, chills, or any other concerning symptoms. Please follow-up with primary care provider. <Lynn Fitzgerald NP - Last Filed: 10/15/21 17:52> Prescriptions: New furosemide [Lasix] 20 mg tablet 20 mg PO DAILY 20 Days Qty: 20 RF: 0 oxycodone-acetaminophen [Percocet] 5-325 mg tablet 1 tab PO TID PRN (Reason: pain) Qty: 9 RF: 0 No Action (DME) Dexcom G6 Transmitter Device See Rx Instructions .ROUTE .MEDSUPPLY Qty: 1 RF: 3 (DME) Dexcom G6 Sensor Device See Rx Instructions .ROUTE .MEDSUPPLY Qty: 3 RF: 3 (DME) blood-glucose meter [FreeStyle Rembrandt Lite] Kit See Rx Instructions .ROUTE .MEDSUPPLY Qty: 1 RF: 0 glucagon 0.5 mg/0.1 mL syringe 1 mg subcut Q20M PRN (Reason: hypoglycemia) Qty: 0.2 RF: 3 cholecalciferol (vitamin D3) 1,250 mcg (50,000 unit) capsule 1,250 mcg PO QWEEK Qty: 8 RF: 0 cholecalciferol (vitamin D3) 50 mcg (2,000 unit) capsule 50 mcg PO DAILY Qty: 30 RF: 11 albuterol sulfate 90 mcg/actuation HFA aerosol inhaler 2 puff inhalation Q6H PRN (Reason: shortness of breath or wheezing) 30 Days Qty: 8.5 RF: 1 (DME) pen needle, diabetic [BD Ultra-Fine Short Pen Needle] 31 gauge x 5/16 needle See Rx Instructions .Route Qty: 100 RF: 11 tramadol 50 mg tablet 50 mg PO BID PRN (Reason: pain) Qty: 14 RF: 0 atorvastatin 20 mg tablet 20 mg PO BEDTIME Qty: 90 RF: 1 Creon 24,000-76,000 -120,000 unit capsule,delayed release(DR/EC) 1 cap PO QID 30 Days Qty: 120 RF: 3 (DME) FreeStyle Lite Strips Strip See Rx Instructions .ROUTE .MEDSUPPLY Qty: 150 RF: 11 (DME) blood-glucose meter [FreeStyle Lite Meter] Kit See Rx Instructions .ROUTE .MEDSUPPLY Qty: 1 RF: 0 (DME) lancets [FreeStyle Lancets] 28 gauge misc See Rx Instructions .ROUTE .MEDSUPPLY Qty: 200 RF: 11 amoxicillin-pot clavulanate [Augmentin] 500-125 mg tablet 1 tab PO BID 10 Days Qty: 20 RF: 0 lubiprostone [Amitiza] 24 mcg capsule 24 mcg PO BID 30 Days Qty: 60 RF: 6 fluconazole [Diflucan] 100 mg tablet 100 mg PO DAILY 5 Days Qty: 5 RF: 0 fenofibrate 54 mg tablet 54 mg PO DAILY Qty: 30 RF: 6 Humulin R U-500 (Conc) Kwikpen 500 unit/mL (3 mL) insulin pen See Rx Instructions subcut TID 30 Days Qty: 18 RF: 6 <Lynn Fitzgerald NP - Last Filed: 10/15/21 17:52> Stand Alone Forms: Work/School Release <Lynn Fitzgerald NP - Last Filed: 10/15/21 17:52> Print Language: [place]araguan <Lynn Fitzgerald, PLASTER WHITTLER - Last Filed: 10/15/21 17:52>
[2021-10-15 16:20] VITALS: BP 133/74; PULSE 91; RESP 16; TEMP 36.8; O2SAT 100
[2021-10-15 16:41] LABS: MANUAL DIFF FLAG NO
[2021-10-15 16:42] LABS: Basophils Absolute Auto 0.1 X10*3/uL (0.0-0.2); Basophils Percent Auto 0.8 % (0-2); Eosinophils Absolute Auto 0.2 X10*3/uL (0.0-0.4); Eosinophils Percent Auto 2.1 % (0-4); Hemoglobin 14.4 g/dl (14.0-18.0); Imm Gran Abs Auto 0.03 X10*3/uL (0.00-0.03); Imm Gran Pct Auto 0.3 % (0.0-0.4); Lymphocytes Absolute Auto 2.1 X10*3/uL (1.2-4.9); Lymphocytes Percent Auto 23.9 % (20-40); Mean Corpuscular HGB Conc 33.5 g/dl (31.0-36.0); Mean Corpuscular Hemoglobin 29.4 pg (27.0-33.0); Mean Corpuscular Volume 87.9 fL (80.0-98.0); Mean Platelet Volume 10.2 fL (9.4-12.4); Monocytes Absolute Auto 0.7 X10*3/uL (0.1-1.2); Monocytes Percent Auto 7.9 % (2-11); Neutrophils Absolute Auto 5.6 x10*3/uL (2.0-8.3); Platelet Count 304 X10*3/uL (160-400); Red Blood Count 4.89 X10*6/uL (4.60-5.80); Red Cell Distribution Width 13.2 % (11.0-16.0); White Blood Count 8.6 X10*3/uL (4.8-10.8)
[2021-10-15 16:48] LABS: Prothrombin Time 11.6 SEC (9.9-13.0)
[2021-10-15 16:54] LABS: Lactic Acid 1.2 mmol/L (0.5-2.0)
[2021-10-15 16:58] LABS: Anion Gap 12 (12-20); Blood Urea Nitrogen 14 mg/dL (9-16); C Reactive Protein 1.45 mg/dL (< or = 0.50); Calcium 9.4 mg/dL (8.4-10.2); Carbon Dioxide 28 mmol/L (22-29); Chloride 101 mmol/L (96-108); Estimated Glomerular Filt Rate > 60; Glucose Random 321 mg/dL (60-115); Potassium 4.2 mmol/L (3.3-5.1); Sodium 137 mmol/L (135-145)
[2021-10-15 17:21] LABS: Erythrocyte Sedimentation Rate 7 MM/HR (0-15)
[2021-10-15] MEDS: iohexoL 350 MG/ML 100 ML INFUS..BTL 85 ML IV (18:05)
[2021-10-15 20:37] VITALS: BP 138/65; PULSE 82; RESP 16; TEMP 37.1; O2SAT 98
--- NOTE | 2021-10-15 20:40 | PC.NURSE ---
pt a&o, no sob or chest pain. CMS and pedal pulses intact. pt has 5/10 pain. provider made aware. Will continue to monitor.
[2021-10-15] MEDS: oxyCODONE HCl Immed Release 5 MG TABLET PO (21:27)
--- NOTE | 2021-10-15 21:30 | PC.NURSE ---
medicated per mar.
--- NOTE | 2021-10-15 21:54 | PC.NURSE ---
pt taken to ultra sound. Will continue to monitor
== END 2021-10-15 23:02 | disposition home or self-care (01) ==
PROVIDERS: Nurse Practitioner Family; Emergency Provider Emergency Medicine; PCP Nurse Practitioner Family
DX: M79.661 Pain in right lower leg (principal); M79.662 Pain in left lower leg; R60.0 Localized edema; E11.9 Type 2 diabetes mellitus without complications; I10 Essential (primary) hypertension; Z79.4 Long term (current) use of insulin
CPT/HCPCS: 36415; 73701; 80048; 83605; 85025; 85610; 85652; 86140; 87040; 93971; 99284; Q9967

== ENCOUNTER 2021-10-17 21:55 | Emergency (ER) | payer OTHER, SELFPAY ==
--- NOTE | 2021-10-17 | ECG_ITS ---
Test Reason : WEAKNESS,FEVER Blood Pressure : / mmHG Vent. Rate : 108 BPM Atrial Rate : 108 BPM P-R Int : 134 ms QRS Dur : 064 ms QT Int : 332 ms P-R-T Axes : 029 -28 050 degrees QTc Int : 444 ms Sinus tachycardia with Premature atrial complexes Inferior infarct , age undetermined Poor R wave progression Abnormal ECG When compared with ECG of 12-SEP-2015 08:10, Possible Inferior infarct is now Present Referred By: Generic ED Physician Electronically Signed By:KAYE HUSSEIN MD
--- NOTE | ~2021-10-17 | XR_ITS ---
EXAMINATION: XR CHEST CLINICAL INFORMATION: Chest pain. Shortness of breath. COMPARISON: 09/16/2021 TECHNIQUE: Frontal view of the chest was obtained. FINDINGS: The lungs are well expanded. There is no focal consolidation, edema, or effusion. No pneumothorax. The cardiomediastinal silhouette is within normal limits. No acute osseous abnormality. XR/XR chest 1V IMPRESSION: Clear lungs.
[2021-10-17 22:07] VITALS: BP 145/78; PULSE 94; RESP 20; TEMP 36.4; O2SAT 96; BMI 39.6
[2021-10-17 22:25] LABS: MANUAL DIFF FLAG NO
[2021-10-17 22:28] LABS: Basophils Absolute Auto 0.1 X10*3/uL (0.0-0.2); Eosinophils Absolute Auto 0.3 X10*3/uL (0.0-0.4); Eosinophils Percent Auto 3.3 % (0-4); Hematocrit 41.2 % (42.0-52.0); Hemoglobin 14.1 g/dl (14.0-18.0); Imm Gran Abs Auto 0.04 X10*3/uL (0.00-0.03); Imm Gran Pct Auto 0.4 % (0.0-0.4); Lymphocytes Absolute Auto 2.3 X10*3/uL (1.2-4.9); Lymphocytes Percent Auto 23.8 % (20-40); Mean Corpuscular HGB Conc 34.2 g/dl (31.0-36.0); Mean Corpuscular Hemoglobin 29.8 pg (27.0-33.0); Mean Corpuscular Volume 87.1 fL (80.0-98.0); Mean Platelet Volume 10.2 fL (9.4-12.4); Monocytes Absolute Auto 0.7 X10*3/uL (0.1-1.2); Monocytes Percent Auto 7.1 % (2-11); Neutrophils Absolute Auto 6.3 x10*3/uL (2.0-8.3); Neutrophils Percent Auto 64.4 % (45-73); Platelet Count 327 X10*3/uL (160-400); Red Blood Count 4.73 X10*6/uL (4.60-5.80); Red Cell Distribution Width 12.9 % (11.0-16.0); White Blood Count 9.7 X10*3/uL (4.8-10.8)
[2021-10-17 22:43] LABS: COVID-19 Test Negative (Negative)
[2021-10-17 22:52] LABS: Anion Gap 12 (12-20); Blood Urea Nitrogen 14 mg/dL (9-16); Calcium 9.4 mg/dL (8.4-10.2); Carbon Dioxide 26 mmol/L (22-29); Chloride 101 mmol/L (96-108); Creatinine Clr Calc Pharmacy 139.7; Estimated Glomerular Filt Rate > 60; Glucose Random 351 mg/dL (60-115); Potassium 4.1 mmol/L (3.3-5.1); Sodium 135 mmol/L (135-145)
[2021-10-17 22:56] LABS: B Type Natriuretic Peptide < 10 pg/mL (<100); Troponin-I High Sensitivity < 3.5 ng/L (<3.5-35.0)
[2021-10-17 22:58] LABS: Glucose, Whole Blood 296 mg/dL (60-115)
--- NOTE | 2021-10-17 23:46 | ED.CHESTPAIN ---
HPI - Chest Pain General Chief Complaint: Chest Pain Stated Complaint: Chest pain/SOB Time Seen by Provider: 10/17/21 22:58 Source: patient Mode of arrival: ambulatory Limitations: no limitations History of Present Illness HPI narrative: Patient comes to the emergency room complaining intermittent chest pain for year and half, and states that he was recently started on Lasix for lower extremity edema. Patient has been told that he needs a stress test and echocardiogram which was already ordered by his primary care physician. Patient states that today when he was walking up the stairs, patient was almost out of breath at the end of the stairs. Patient states that he has been taking Lasix for his lower extremities but they are not improving. He recently doubled his does of Lasix for 3 days hoping that the lower extremity edema would improve Related Data Previous Rx's Medication Instructions Recorded blood-glucose sensor (Dexcom G6 #3 ea 01/19/21 Sensor) blood-glucose transmitter (Dexcom #1 ea 01/19/21 G6 Transmitter) blood-glucose meter (FreeStyle #1 ea 07/07/21 Dennard Lite) glucagon 0.5 mg/0.1 mL 1 mg (0.2 mL) SUBCUT Q20M PRN #0.2 07/10/21 subcutaneous syringe ml [id number] 1 cap PO QID 30 Days #120 cap 07/13/21 24,000-76,000-120,000 unit capsule,delayed rel (Creon) atorvastatin 20 mg tablet 20 mg PO BEDTIME #90 tab 07/20/21 blood sugar diagnostic (FreeStyle #150 ea 08/17/21 Lite Strips) blood-glucose meter (FreeStyle #1 ea 08/17/21 Lite Meter) lancets 28 gauge (FreeStyle #200 ea 08/17/21 Lancets) cholecalciferol (vitamin D3) 1,250 1,250 mcg PO QWEEK #8 cap 08/24/21 mcg (50,000 unit) capsule cholecalciferol (vitamin D3) 50 50 mcg PO DAILY #30 cap 08/24/21 mcg (2,000 unit) capsule albuterol sulfate 90 mcg/actuation 2 puff INHALATION Q6H PRN 30 Days 09/15/21 aerosol inhaler #8.5 g pen needle, diabetic 31 gauge x #100 ea 09/16/2103/15 (BD Ultra-Fine Short Pen Needle) amoxicillin 500 mg-potassium 1 tab PO BID 10 Days #20 tab 09/28/21 clavulanate 125 mg tablet (Augmentin) fluconazole 100 mg tablet 100 mg PO DAILY 5 Days #5 tab 09/28/21 (Diflucan) lubiprostone 24 mcg capsule 24 mcg PO BID 30 Days #60 cap 09/28/21 (Amitiza) fenofibrate 54 mg tablet 54 mg PO DAILY #30 tab 10/01/21 insulin regular hum U-500 conc See Rx Instructions SUBCUT TID 30 10/01/21 (Humulin R U-500 (Conc) Insulin Days #18 ml Kwikpen) tramadol 50 mg tablet 50 mg PO BID PRN #14 tab 10/10/21 furosemide 20 mg tablet (Lasix) 20 mg PO DAILY 20 Days #20 tab 10/15/21 oxycodone-acetaminophen 5 mg-325 1 tab PO TID PRN #9 tab 10/15/21 mg tablet (Percocet) furosemide 40 mg tablet (Lasix) 40 mg PO DAILY #5 tab 10/18/21 Allergies Allergy/AdvReac Type Severity Reaction Status Date / Time ibuprofen Allergy Mild unknown Verified 10/17/21 22:11 pyrantel Allergy Mild hives Verified 10/17/21 22:11 ketorolac [From TORADOL] Allergy Unknown GI UPSET Verified 10/17/21 22:11 NSAIDS (Non-Steroidal Allergy Unknown GI UPSET Verified 10/17/21 22:11 Anti-Inflamma [NSAIDS (NON-STEROIDAL ANTI-INFLAMMA] PMFSH Past Medical History Medical History Chronic osteomyelitis of right ulna DDD (degenerative disc disease), lumbar Diabetes type 2, uncontrolled Diarrhea Hx of pancreatitis Hypertriglyceridemia Lumbar spinal stenosis Mild sleep apnea Obesity due to excess calories Type 2 diabetes mellitus Vitamin D deficiency Surgical History Status post osteotomy Family History Family History Father No problems noted. Mother Graves disease Sister Type 2 diabetes mellitus Social History Social History Household Members: Significant Other Alcohol intake: current Alcohol intake frequency: holidays/special occasions only Patient Tobacco Use Status: Former Tobacco user e-Cigarette/Vaping Use: Currently Using Advance Directives: No Advance Directives Information Provided: No Physical Exam Vital Signs: Vital Signs: Last Vital Signs Temp 97.5 F 10/17/21 22:07 Pulse 94 10/17/21 22:07 Resp 20 10/17/21 22:07 BP 145/78 H 10/17/21 22:07 Pulse Ox 96 10/17/21 22:07 BMI result Body Mass Index 39.6 Course Course Course Narrative: I discussed the labs and imaging with the patient, patient's BNP is within normal limits, troponin negative. At this time, patient is asymptomatic. Oxygen saturation remained at 97% on room air while ambulating. Patient lower extremity likely secondary to venous insufficiency. Patient instructed to follow-up with his primary care physician. Patient will be taking 40 mg of Lasix once a day for 5 days MDM - Chest Pain Lab Data Result diagrams: 10/17/21 22:13 10/17/21 22:13 Labs: Lab Results 10/17/21 10/17/21 10/17/21 Range/Units 22:13 22:13 22:13 WBC 9.7 (4.8-10.8) X10*3/uL RBC 4.73 (4.60-5.80) X10*6/uL Hgb 14.1 (14.0-18.0) g/dl Hct 41.2 L (42.0-52.0) % MCV 87.1 (80.0-98.0) fL MCH 29.8 (27.0-33.0) pg MCHC 34.2 (31.0-36.0) g/dl RDW 12.9 (11.0-16.0) % Plt Count 327 (160-400) X10*3/uL MPV 10.2 (9.4-12.4) fL Immature Gran % (Auto) 0.4 (0.0-0.4) % Neut % (Auto) 64.4 (45-73) % Lymph % (Auto) 23.8 (20-40) % [place] % (Auto) 7.1 (2-11) % Eos % (Auto) 3.3 (0-4) % Baso % (Auto) 1.0 (0-2) % Lymph # (Auto) 2.3 (1.2-4.9) X10*3/uL [place] # (Auto) 0.7 (0.1-1.2) X10*3/uL Eos # (Auto) 0.3 (0.0-0.4) X10*3/uL Baso # (Auto) 0.1 (0.0-0.2) X10*3/uL Abs Immat Gran (auto) 0.04 H (0.00-0.03) X10*3/uL Absolute Neuts (auto) 6.3 (2.0-8.3) x10*3/uL Absolute Nucleated RBC 0.000 (0.0-0.012) X10*3/uL Nucleated RBC % (auto) 0.0 (0.0-0.2) /100WBC D-Dimer High Sensitivty NG/ML Sodium 135 (135-145) mmol/L Potassium 4.1 (3.3-5.1) mmol/L Chloride 101 (96-108) mmol/L Carbon Dioxide 26 (22-29) mmol/L Anion Gap 12 (12-20) BUN 14 (9-16) mg/dL Creatinine 0.99 (0.5-1.4) mg/dL Estim Creat Clear Calc 139.7 Estimated GFR > 60 POC Glucose (60-115) mg/dL Random Glucose 351 H* (60-115) mg/dL Calcium 9.4 (8.4-10.2) mg/dL Troponin I High Sens < 3.5 (<3.5-35.0) ng/L B-Natriuretic Peptide < 10 (<100) pg/mL COVID-19 (COMPA) (Negative) COVID-19 Clin Com 10/17/21 10/17/21 10/17/21 Range/Units 22:13 22:13 22:55 WBC (4.8-10.8) X10*3/uL RBC (4.60-5.80) X10*6/uL Hgb (14.0-18.0) g/dl Hct (42.0-52.0) % MCV (80.0-98.0) fL MCH (27.0-33.0) pg MCHC (31.0-36.0) g/dl RDW (11.0-16.0) % Plt Count (160-400) X10*3/uL MPV (9.4-12.4) fL Immature Gran % (Auto) (0.0-0.4) % Neut % (Auto) (45-73) % Lymph % (Auto) (20-40) % [place] % (Auto) (2-11) % Eos % (Auto) (0-4) % Baso % (Auto) (0-2) % Lymph # (Auto) (1.2-4.9) X10*3/uL [place] # (Auto) (0.1-1.2) X10*3/uL Eos # (Auto) (0.0-0.4) X10*3/uL Baso # (Auto) (0.0-0.2) X10*3/uL Abs Immat Gran (auto) (0.00-0.03) X10*3/uL Absolute Neuts (auto) (2.0-8.3) x10*3/uL Absolute Nucleated RBC (0.0-0.012) X10*3/uL Nucleated RBC % (auto) (0.0-0.2) /100WBC D-Dimer High Sensitivty NG/ML Sodium (135-145) mmol/L Potassium (3.3-5.1) mmol/L Chloride (96-108) mmol/L Carbon Dioxide (22-29) mmol/L Anion Gap (12-20) BUN (9-16) mg/dL Creatinine (0.5-1.4) mg/dL Estim Creat Clear Calc Estimated GFR POC Glucose 296 H (60-115) mg/dL Random Glucose (60-115) mg/dL Calcium (8.4-10.2) mg/dL Troponin I High Sens (<3.5-35.0) ng/L B-Natriuretic Peptide Cancelled (<100) pg/mL COVID-19 (COMPA) Negative (Negative) COVID-19 Clin Com See Note 10/17/21 Range/Units 23:36 WBC (4.8-10.8) X10*3/uL RBC (4.60-5.80) X10*6/uL Hgb (14.0-18.0) g/dl Hct (42.0-52.0) % MCV (80.0-98.0) fL MCH (27.0-33.0) pg MCHC (31.0-36.0) g/dl RDW (11.0-16.0) % Plt Count (160-400) X10*3/uL MPV (9.4-12.4) fL Immature Gran % (Auto) (0.0-0.4) % Neut % (Auto) (45-73) % Lymph % (Auto) (20-40) % [place] % (Auto) (2-11) % Eos % (Auto) (0-4) % Baso % (Auto) (0-2) % Lymph # (Auto) (1.2-4.9) X10*3/uL [place] # (Auto) (0.1-1.2) X10*3/uL Eos # (Auto) (0.0-0.4) X10*3/uL Baso # (Auto) (0.0-0.2) X10*3/uL Abs Immat Gran (auto) (0.00-0.03) X10*3/uL Absolute Neuts (auto) (2.0-8.3) x10*3/uL Absolute Nucleated RBC (0.0-0.012) X10*3/uL Nucleated RBC % (auto) (0.0-0.2) /100WBC D-Dimer High Sensitivty < 150 NG/ML Sodium (135-145) mmol/L Potassium (3.3-5.1) mmol/L Chloride (96-108) mmol/L Carbon Dioxide (22-29) mmol/L Anion Gap (12-20) BUN (9-16) mg/dL Creatinine (0.5-1.4) mg/dL Estim Creat Clear Calc Estimated GFR POC Glucose (60-115) mg/dL Random Glucose (60-115) mg/dL Calcium (8.4-10.2) mg/dL Troponin I High Sens (<3.5-35.0) ng/L B-Natriuretic Peptide (<100) pg/mL COVID-19 (COMPA) (Negative) COVID-19 Clin Com Imaging Data Chest x-ray: Radiologist's impression: FINDINGS: The lungs are well expanded. There is no focal consolidation, edema, or effusion. No pneumothorax. The cardiomediastinal silhouette is within normal limits. No acute osseous abnormality. XR/XR chest 1V IMPRESSION: Clear lungs. Discharge Plan Discharge Clinical Impression: Bilateral lower extremity edema Patient Disposition: Home, Self-Care Instructions: Leg Edema (ED) Additional Instructions: Please follow-up with your primary care physician tomorrow. If you have any worsening or new symptoms, please return to the emergency room or call 911 Prescriptions: New furosemide [Lasix] 40 mg tablet 40 mg PO DAILY Qty: 5 RF: 0 No Action (DME) Dexcom G6 Transmitter Device See Rx Instructions .ROUTE .MEDSUPPLY Qty: 1 RF: 3 (DME) Dexcom G6 Sensor Device See Rx Instructions .ROUTE .MEDSUPPLY Qty: 3 RF: 3 (DME) blood-glucose meter [CloudPhysicsStyle Dennard Lite] Kit See Rx Instructions .ROUTE .MEDSUPPLY Qty: 1 RF: 0 glucagon 0.5 mg/0.1 mL syringe 1 mg subcut Q20M PRN (Reason: hypoglycemia) Qty: 0.2 RF: 3 cholecalciferol (vitamin D3) 1,250 mcg (50,000 unit) capsule 1,250 mcg PO QWEEK Qty: 8 RF: 0 cholecalciferol (vitamin D3) 50 mcg (2,000 unit) capsule 50 mcg PO DAILY Qty: 30 RF: 11 albuterol sulfate 90 mcg/actuation HFA aerosol inhaler 2 puff inhalation Q6H PRN (Reason: shortness of breath or wheezing) 30 Days Qty: 8.5 RF: 1 (DME) pen needle, diabetic [BD Ultra-Fine Short Pen Needle] 31 gauge x 5/16 needle See Rx Instructions .Route Qty: 100 RF: 11 tramadol 50 mg tablet 50 mg PO BID PRN (Reason: pain) Qty: 14 RF: 0 furosemide [Lasix] 20 mg tablet 20 mg PO DAILY 20 Days Qty: 20 RF: 0 oxycodone-acetaminophen [Percocet] 5-325 mg tablet 1 tab PO TID PRN (Reason: pain) Qty: 9 RF: 0 atorvastatin 20 mg tablet 20 mg PO BEDTIME Qty: 90 RF: 1 Creon 24,000-76,000 -120,000 unit capsule,delayed release(DR/EC) 1 cap PO QID 30 Days Qty: 120 RF: 3 (DME) FreeStyle Lite Strips Strip See Rx Instructions .ROUTE .MEDSUPPLY Qty: 150 RF: 11 (DME) blood-glucose meter [FreeStyle Lite Meter] Kit See Rx Instructions .ROUTE .MEDSUPPLY Qty: 1 RF: 0 (DME) lancets [FreeStyle Lancets] 28 gauge misc See Rx Instructions .ROUTE .MEDSUPPLY Qty: 200 RF: 11 amoxicillin-pot clavulanate [Augmentin] 500-125 mg tablet 1 tab PO BID 10 Days Qty: 20 RF: 0 lubiprostone [Amitiza] 24 mcg capsule 24 mcg PO BID 30 Days Qty: 60 RF: 6 fluconazole [Diflucan] 100 mg tablet 100 mg PO DAILY 5 Days Qty: 5 RF: 0 fenofibrate 54 mg tablet 54 mg PO DAILY Qty: 30 RF: 6 Humulin R U-500 (Conc) Kwikpen 500 unit/mL (3 mL) insulin pen See Rx Instructions subcut TID 30 Days Qty: 18 RF: 6
[2021-10-18] VITALS: BP 139/80; PULSE 79; RESP 18; O2SAT 98
[2021-10-18 00:14] LABS: D Dimer High Sensitivity < 150 NG/ML
[2021-10-18] MEDS: Furosemide 40 MG/4 ML VIAL IVPUSH (01:05)
[2021-10-18 01:11] VITALS: O2SAT 97
== END 2021-10-18 01:36 | disposition home or self-care (01) ==
PROVIDERS: Emergency Provider Emergency Medicine; PCP Nurse Practitioner Family
DX: R60.0 Localized edema (principal); E11.9 Type 2 diabetes mellitus without complications; Z79.899 Other long term (current) drug therapy; Z20.822 Contact with and (suspected) exposure to COVID-19
CPT/HCPCS: 36415; 71045; 80048; 82947; 83880; 84484; 85025; 85379; 87635; 93005; 96374; 99284; J1940

== ENCOUNTER 2021-10-19 11:04 | Inpatient (IN) | payer OTHER, SELFPAY ==
--- NOTE | ~2021-10-19 | XR_ITS ---
EXAMINATION: XR CHEST CLINICAL INFORMATION: Chest pain and shortness of breath. COMPARISON: Previous chest x-ray 10/17/2021 TECHNIQUE: 2 views of the chest were obtained. FINDINGS: No significant abnormality is noted involving the heart, lungs, mediastinum, bony thorax or soft tissues. XR/XR chest 2V IMPRESSION: Unremarkable examination.
--- NOTE | 2021-10-19 11:08 | ECG_ITS ---
Test Reason : abnormal ekg Blood Pressure : / mmHG Vent. Rate : 095 BPM Atrial Rate : 095 BPM P-R Int : 194 ms QRS Dur : 116 ms QT Int : 394 ms P-R-T Axes : 054 -02 036 degrees QTc Int : 495 ms Normal sinus rhythm Minimal voltage criteria for LVH, may be normal variant ( [employer]ryker product ) Prolonged QT Abnormal ECG When compared with ECG of 18-OCT-2021 00:24, Premature atrial complexes are no longer Present QRS duration has increased Minimal criteria for Anterior infarct are no longer Present Criteria for Inferior infarct are no longer Present QT has lengthened Referred By: Araceli Velez Electronically Signed By:RUBEN CABRERA
[2021-10-19 11:26] LABS: MANUAL DIFF FLAG NO
[2021-10-19 11:28] LABS: Basophils Absolute Auto 0.1 X10*3/uL (0.0-0.2); Basophils Percent Auto 0.9 % (0-2); Eosinophils Absolute Auto 0.2 X10*3/uL (0.0-0.4); Eosinophils Percent Auto 2.5 % (0-4); Hematocrit 42.6 % (42.0-52.0); Hemoglobin 14.5 g/dl (14.0-18.0); Imm Gran Abs Auto 0.03 X10*3/uL (0.00-0.03); Imm Gran Pct Auto 0.3 % (0.0-0.4); Lymphocytes Absolute Auto 2.5 X10*3/uL (1.2-4.9); Lymphocytes Percent Auto 26.8 % (20-40); Mean Corpuscular Hemoglobin 29.7 pg (27.0-33.0); Mean Corpuscular Volume 87.1 fL (80.0-98.0); Monocytes Absolute Auto 0.8 X10*3/uL (0.1-1.2); Monocytes Percent Auto 8.3 % (2-11); Neutrophils Absolute Auto 5.8 x10*3/uL (2.0-8.3); Neutrophils Percent Auto 61.2 % (45-73); Platelet Count 335 X10*3/uL (160-400); Red Blood Count 4.89 X10*6/uL (4.60-5.80); Red Cell Distribution Width 13.1 % (11.0-16.0); White Blood Count 9.5 X10*3/uL (4.8-10.8)
[2021-10-19 11:42] LABS: Prothrombin Time 11.6 SEC (9.9-13.0)
[2021-10-19 11:49] LABS: COVID-19 Test Negative (Negative)
[2021-10-19 11:51] LABS: B Type Natriuretic Peptide < 10 pg/mL (<100); Troponin-I High Sensitivity < 3.5 ng/L (<3.5-35.0)
[2021-10-19 11:56] LABS: Alanine Aminotransferase 34 U/L (0-40); Albumin Level 3.9 g/dL (3.5-5.0); Alkaline Phosphatase 117 U/L (39-117); Anion Gap 11 (12-20); Aspartate Amino Transferase 23 U/L (5-37); Bilirubin Total 0.5 mg/dL (0.0-1.0); Blood Urea Nitrogen 20 mg/dL (9-16); Calcium 9.1 mg/dL (8.4-10.2); Carbon Dioxide 29 mmol/L (22-29); Chloride 98 mmol/L (96-108); Estimated Glomerular Filt Rate > 60; Glucose Random 582 mg/dL (60-115); Magnesium 1.7 mg/dL (1.6-2.6); Potassium 4.2 mmol/L (3.3-5.1); Sodium 134 mmol/L (135-145); Total Protein 6.7 g/dL (6.5-8.0)
[2021-10-19 12:11] VITALS: BP 141/90; PULSE 87; RESP 18; TEMP 36; O2SAT 97; BMI 38.2
--- NOTE | 2021-10-19 12:41 | ED.CHESTPAIN ---
HPI - Chest Pain General Chief Complaint: Chest Pain Stated Complaint: ABNORMAL EKG CHEST PAIN SOB Time Seen by Provider: 10/19/21 11:08 Source: patient and old records reviewed History of Present Illness HPI narrative: Patient with recent history of bilateral leg edema and dyspnea on exertion. He has also been having intermittent chest pain for the past several months. He states with any exertion he gets a chest pressure which is relieved with rest. Longest episode was 30 minutes, shortness episodes of several minutes. Occasionally radiates to his left neck or his left arm. He has seen his PCP as well as the ER about the symptoms. He was placed on Lasix which is significantly improved his pedal edema. He re-presented today because he continues to have chest pain symptoms and with the red his my chart report, his EKG read abnormal. He is scheduled for an echocardiogram and a stress test, but does not have his 1st appointment until the end of October. He also states his blood sugars have been out of control despite adequate insulin intake. No changes in diet. Less activity than normal secondary to dyspnea. No recent fevers or chills. He was tested for COVID last month and was negative. Related Data Previous Rx's Medication Instructions Recorded blood-glucose sensor (Dexcom G6 #3 ea 01/19/21 Sensor) blood-glucose transmitter (Dexcom #1 ea 01/19/21 G6 Transmitter) blood-glucose meter (FreeStyle #1 ea 07/07/21 [place]ite) glucagon 0.5 mg/0.1 mL 1 mg (0.2 mL) SUBCUT Q20M PRN #0.2 07/10/21 subcutaneous syringe ml [id number] 1 cap PO QID 30 Days #120 cap 07/13/21 24,000-76,000-120,000 unit capsule,delayed rel (Creon) atorvastatin 20 mg tablet 20 mg PO BEDTIME #90 tab 07/20/21 blood sugar diagnostic (FreeStyle #150 ea 08/17/21 Lite Strips) blood-glucose meter (FreeStyle #1 ea 08/17/21 Lite Meter) lancets 28 gauge (FreeStyle #200 ea 08/17/21 Lancets) cholecalciferol (vitamin D3) 1,250 1,250 mcg PO QWEEK #8 cap 08/24/21 mcg (50,000 unit) capsule cholecalciferol (vitamin D3) 50 50 mcg PO DAILY #30 cap 08/24/21 mcg (2,000 unit) capsule albuterol sulfate 90 mcg/actuation 2 puff INHALATION Q6H PRN 30 Days 09/15/21 aerosol inhaler #8.5 g pen needle, diabetic 31 gauge x #100 ea 09/16/2103/15 (BD Ultra-Fine Short Pen Needle) amoxicillin 500 mg-potassium 1 tab PO BID 10 Days #20 tab 09/28/21 clavulanate 125 mg tablet (Augmentin) fluconazole 100 mg tablet 100 mg PO DAILY 5 Days #5 tab 09/28/21 (Diflucan) lubiprostone 24 mcg capsule 24 mcg PO BID 30 Days #60 cap 09/28/21 (Amitiza) fenofibrate 54 mg tablet 54 mg PO DAILY #30 tab 10/01/21 insulin regular hum U-500 conc See Rx Instructions SUBCUT TID 30 10/01/21 (Humulin R U-500 (Conc) Insulin Days #18 ml Kwikpen) tramadol 50 mg tablet 50 mg PO BID PRN #14 tab 10/10/21 furosemide 20 mg tablet (Lasix) 20 mg PO DAILY 20 Days #20 tab 10/15/21 oxycodone-acetaminophen 5 mg-325 1 tab PO TID PRN #9 tab 10/15/21 mg tablet (Percocet) furosemide 40 mg tablet (Lasix) 40 mg PO DAILY #5 tab 10/18/21 Allergies Allergy/AdvReac Type Severity Reaction Status Date / Time ibuprofen Allergy Mild unknown Verified 10/17/21 22:11 pyrantel Allergy Mild hives Verified 10/17/21 22:11 ketorolac [From TORADOL] Allergy Unknown GI UPSET Verified 10/17/21 22:11 NSAIDS (Non-Steroidal Allergy Unknown GI UPSET Verified 10/17/21 22:11 Anti-Inflamma [NSAIDS (NON-STEROIDAL ANTI-INFLAMMA] Review of Systems Constitutional: Comments: No fevers Cardiovascular: Comments: Chest pain does mention Respiratory: Comments: Dyspnea as mentioned Gastrointestinal: Comments: No nausea vomiting Musculoskeletal: Comments: Bilateral leg edema, right greater than left, improved considerably with Lasix treatment recently Integumentary/Breasts: Comments: No rash Endocrine: Comments: Blood sugars recently out of control [facility] Past Medical History Medical History Chronic osteomyelitis of right ulna DDD (degenerative disc disease), lumbar Diabetes type 2, uncontrolled Diarrhea Hx of pancreatitis Hypertriglyceridemia Lumbar spinal stenosis Mild sleep apnea Obesity due to excess calories Type 2 diabetes mellitus Vitamin D deficiency Surgical History Status post osteotomy Family History Family History Father No problems noted. Mother Graves disease Sister Type 2 diabetes mellitus Social History Social History Household Members: Significant Other Alcohol intake: current Alcohol intake frequency: does not drink Patient Tobacco Use Status: Former Tobacco user e-Cigarette/Vaping Use: Currently Using Use of substances other than those prescribed or required for medical reasons: No Advance Directives: No Advance Directives Information Provided: Yes Physical Exam Vital Signs: Vital Signs: Last Vital Signs Temp 96.8 F 10/19/21 12:11 Pulse 86 10/19/21 12:50 Resp 20 10/19/21 12:50 BP 128/56 L 10/19/21 12:50 Pulse Ox 96 10/19/21 12:50 BMI result Body Mass Index 38.2 Const: Other: Awake alert no acute distress Resp: Other: Clear and equal bilaterally without wheezes rales or rhonchi Cardio: Other: Regular rate and rhythm without murmurs rubs or gallops GI: Other: Nontender Skin: Other: Warm pink and dry without erythema, increased warmth, or rash Neuro: Other: Alert and oriented. No focal neuro deficits Extrem: Other: 1+ bilateral pedal edema, pitting Course Course Course Narrative: Congestive heart failure Lymphedema Cardiomyopathy Diabetic ketoacidosis Hyperglycemia Acute coronary syndrome Unstable angina Blood sugars over 500. Will treat with IV insulin. Will hold on IV normal saline due to recent edema. Await acetone level. Patient's history is concerning for possible new onset diabetes and possible cardiomyopathy. Review of recent visits shows EKG from 10/18 with no acute changes but was slightly different than EKG from 2014 with evidence of inferior infarct age indeterminate. Today's EKG no longer shows the changes. QTC and QRS are slightly prolonged. Given multiple changes on EKG with patient's history, will hospitalize for further treatment and or urgent diagnostics including echocardiogram and Cardiology consultation MDM - Chest Pain Lab Data Result diagrams: 10/19/21 11:21 10/19/21 11:21 Labs: Lab Results 10/19/21 10/19/21 10/19/21 Range/Units 11:21 11:21 11:21 WBC 9.5 (4.8-10.8) X10*3/uL RBC 4.89 (4.60-5.80) X10*6/uL Hgb 14.5 (14.0-18.0) g/dl Hct 42.6 (42.0-52.0) % MCV 87.1 (80.0-98.0) fL MCH 29.7 (27.0-33.0) pg MCHC 34.0 (31.0-36.0) g/dl RDW 13.1 (11.0-16.0) % Plt Count 335 (160-400) X10*3/uL MPV 10.0 (9.4-12.4) fL Immature Gran % (Auto) 0.3 (0.0-0.4) % Neut % (Auto) 61.2 (45-73) % Lymph % (Auto) 26.8 (20-40) % [place] % (Auto) 8.3 (2-11) % Eos % (Auto) 2.5 (0-4) % Baso % (Auto) 0.9 (0-2) % Lymph # (Auto) 2.5 (1.2-4.9) X10*3/uL [place] # (Auto) 0.8 (0.1-1.2) X10*3/uL Eos # (Auto) 0.2 (0.0-0.4) X10*3/uL Baso # (Auto) 0.1 (0.0-0.2) X10*3/uL Abs Immat Gran (auto) 0.03 (0.00-0.03) X10*3/uL Absolute Neuts (auto) 5.8 (2.0-8.3) x10*3/uL Absolute Nucleated RBC 0.000 (0.0-0.012) X10*3/uL Nucleated RBC % (auto) 0.0 (0.0-0.2) /100WBC PT 11.6 (9.9-13.0) SEC INR 1.0 (0.9-1.1) VBG pH (7.32-7.43) VBG pCO2 mmHg VBG pO2 mmHg VBG HCO3 (22-26) mmol/L VBG O2 Saturation % VBG Base Excess mmol/L Sodium 134 L (135-145) mmol/L Potassium 4.2 (3.3-5.1) mmol/L Chloride 98 (96-108) mmol/L Carbon Dioxide 29 (22-29) mmol/L Anion Gap 11 L (12-20) BUN 20 H (9-16) mg/dL Creatinine 1.09 (0.5-1.4) mg/dL Estim Creat Clear Calc TNP Estimated GFR > 60 Random Glucose 582 H* (60-115) mg/dL Calcium 9.1 (8.4-10.2) mg/dL Magnesium 1.7 (1.6-2.6) mg/dL Total Bilirubin 0.5 (0.0-1.0) mg/dL AST 23 (5-37) U/L ALT 34 (0-40) U/L Alkaline Phosphatase 117 (39-117) U/L Troponin I High Sens (<3.5-35.0) ng/L B-Natriuretic Peptide (<100) pg/mL Total Protein 6.7 (6.5-8.0) g/dL Albumin 3.9 (3.5-5.0) g/dL Acetone, Qual (Negative) COVID-19 (COMPA) (Negative) COVID-19 Clin Com 10/19/21 10/19/21 10/19/21 Range/Units 11:21 11:22 12:35 WBC (4.8-10.8) X10*3/uL RBC (4.60-5.80) X10*6/uL Hgb (14.0-18.0) g/dl Hct (42.0-52.0) % MCV (80.0-98.0) fL MCH (27.0-33.0) pg MCHC (31.0-36.0) g/dl RDW (11.0-16.0) % Plt Count (160-400) X10*3/uL MPV (9.4-12.4) fL Immature Gran % (Auto) (0.0-0.4) % Neut % (Auto) (45-73) % Lymph % (Auto) (20-40) % [place] % (Auto) (2-11) % Eos % (Auto) (0-4) % Baso % (Auto) (0-2) % Lymph # (Auto) (1.2-4.9) X10*3/uL [place] # (Auto) (0.1-1.2) X10*3/uL Eos # (Auto) (0.0-0.4) X10*3/uL Baso # (Auto) (0.0-0.2) X10*3/uL Abs Immat Gran (auto) (0.00-0.03) X10*3/uL Absolute Neuts (auto) (2.0-8.3) x10*3/uL Absolute Nucleated RBC (0.0-0.012) X10*3/uL Nucleated RBC % (auto) (0.0-0.2) /100WBC PT (9.9-13.0) SEC INR (0.9-1.1) VBG pH (7.32-7.43) VBG pCO2 mmHg VBG pO2 mmHg VBG HCO3 (22-26) mmol/L VBG O2 Saturation % VBG Base Excess mmol/L Sodium (135-145) mmol/L Potassium (3.3-5.1) mmol/L Chloride (96-108) mmol/L Carbon Dioxide (22-29) mmol/L Anion Gap (12-20) BUN (9-16) mg/dL Creatinine (0.5-1.4) mg/dL Estim Creat Clear Calc Estimated GFR Random Glucose (60-115) mg/dL Calcium (8.4-10.2) mg/dL Magnesium (1.6-2.6) mg/dL Total Bilirubin (0.0-1.0) mg/dL AST (5-37) U/L ALT (0-40) U/L Alkaline Phosphatase (39-117) U/L Troponin I High Sens < 3.5 (<3.5-35.0) ng/L B-Natriuretic Peptide < 10 (<100) pg/mL Total Protein (6.5-8.0) g/dL Albumin (3.5-5.0) g/dL Acetone, Qual Negative (Negative) COVID-19 (COMPA) Negative (Negative) COVID-19 Clin Com See Note 10/19/21 Range/Units 12:38 WBC (4.8-10.8) X10*3/uL RBC (4.60-5.80) X10*6/uL Hgb (14.0-18.0) g/dl Hct (42.0-52.0) % MCV (80.0-98.0) fL MCH (27.0-33.0) pg MCHC (31.0-36.0) g/dl RDW (11.0-16.0) % Plt Count (160-400) X10*3/uL MPV (9.4-12.4) fL Immature Gran % (Auto) (0.0-0.4) % Neut % (Auto) (45-73) % Lymph % (Auto) (20-40) % [place] % (Auto) (2-11) % Eos % (Auto) (0-4) % Baso % (Auto) (0-2) % Lymph # (Auto) (1.2-4.9) X10*3/uL [place] # (Auto) (0.1-1.2) X10*3/uL Eos # (Auto) (0.0-0.4) X10*3/uL Baso # (Auto) (0.0-0.2) X10*3/uL Abs Immat Gran (auto) (0.00-0.03) X10*3/uL Absolute Neuts (auto) (2.0-8.3) x10*3/uL Absolute Nucleated RBC (0.0-0.012) X10*3/uL Nucleated RBC % (auto) (0.0-0.2) /100WBC PT (9.9-13.0) SEC INR (0.9-1.1) VBG pH 7.49 H (7.32-7.43) VBG pCO2 30 mmHg VBG pO2 76 mmHg VBG HCO3 23 (22-26) mmol/L VBG O2 Saturation 95.0 % VBG Base Excess 1.3 mmol/L Sodium (135-145) mmol/L Potassium (3.3-5.1) mmol/L Chloride (96-108) mmol/L Carbon Dioxide (22-29) mmol/L Anion Gap (12-20) BUN (9-16) mg/dL Creatinine (0.5-1.4) mg/dL Estim Creat Clear Calc Estimated GFR Random Glucose (60-115) mg/dL Calcium (8.4-10.2) mg/dL Magnesium (1.6-2.6) mg/dL Total Bilirubin (0.0-1.0) mg/dL AST (5-37) U/L ALT (0-40) U/L Alkaline Phosphatase (39-117) U/L Troponin I High Sens (<3.5-35.0) ng/L B-Natriuretic Peptide (<100) pg/mL Total Protein (6.5-8.0) g/dL Albumin (3.5-5.0) g/dL Acetone, Qual (Negative) COVID-19 (COMPA) (Negative) COVID-19 Clin Com Discharge Plan Discharge Patient Disposition: Admitted As Inpatient Prescriptions: No Action (DME) Dexcom G6 Transmitter Device See Rx Instructions .ROUTE .MEDSUPPLY Qty: 1 RF: 3 (DME) Dexcom G6 Sensor Device See Rx Instructions .ROUTE .MEDSUPPLY Qty: 3 RF: 3 (DME) blood-glucose meter [FreeStyle [place] Lite] Kit See Rx Instructions .ROUTE .MEDSUPPLY Qty: 1 RF: 0 glucagon 0.5 mg/0.1 mL syringe 1 mg subcut Q20M PRN (Reason: hypoglycemia) Qty: 0.2 RF: 3 cholecalciferol (vitamin D3) 1,250 mcg (50,000 unit) capsule 1,250 mcg PO QWEEK Qty: 8 RF: 0 cholecalciferol (vitamin D3) 50 mcg (2,000 unit) capsule 50 mcg PO DAILY Qty: 30 RF: 11 albuterol sulfate 90 mcg/actuation HFA aerosol inhaler 2 puff inhalation Q6H PRN (Reason: shortness of breath or wheezing) 30 Days Qty: 8.5 RF: 1 (DME) pen needle, diabetic [BD Ultra-Fine Short Pen Needle] 31 gauge x 5/16 needle See Rx Instructions .Route Qty: 100 RF: 11 tramadol 50 mg tablet 50 mg PO BID PRN (Reason: pain) Qty: 14 RF: 0 furosemide [Lasix] 20 mg tablet 20 mg PO DAILY 20 Days Qty: 20 RF: 0 oxycodone-acetaminophen [Percocet] 5-325 mg tablet 1 tab PO TID PRN (Reason: pain) Qty: 9 RF: 0 furosemide [Lasix] 40 mg tablet 40 mg PO DAILY Qty: 5 RF: 0 atorvastatin 20 mg tablet 20 mg PO BEDTIME Qty: 90 RF: 1 Creon 24,000-76,000 -120,000 unit capsule,delayed release(DR/EC) 1 cap PO QID 30 Days Qty: 120 RF: 3 (DME) FreeStyle Lite Strips Strip See Rx Instructions .ROUTE .MEDSUPPLY Qty: 150 RF: 11 (DME) blood-glucose meter [FreeStyle Lite Meter] Kit See Rx Instructions .ROUTE .MEDSUPPLY Qty: 1 RF: 0 (DME) lancets [FreeStyle Lancets] 28 gauge misc See Rx Instructions .ROUTE .MEDSUPPLY Qty: 200 RF: 11 amoxicillin-pot clavulanate [Augmentin] 500-125 mg tablet 1 tab PO BID 10 Days Qty: 20 RF: 0 lubiprostone [Amitiza] 24 mcg capsule 24 mcg PO BID 30 Days Qty: 60 RF: 6 fluconazole [Diflucan] 100 mg tablet 100 mg PO DAILY 5 Days Qty: 5 RF: 0 fenofibrate 54 mg tablet 54 mg PO DAILY Qty: 30 RF: 6 Humulin R U-500 (Conc) Kwikpen 500 unit/mL (3 mL) insulin pen See Rx Instructions subcut TID 30 Days Qty: 18 RF: 6
[2021-10-19 12:45] LABS: VBG Base Excess 1.3 mmol/L; VBG HCO3 23 mmol/L (22-26); VBG pCO2 30 mmHg; VBG pH 7.49 (7.32-7.43); VBG pO2 76 mmHg
[2021-10-19 12:45] LABS: Venous Blood Gas Refer to POC result
[2021-10-19 12:50] VITALS: BP 128/56; PULSE 86; RESP 20; O2SAT 96
[2021-10-19 12:53] LABS: Acetone, serum QL Negative (Negative)
[2021-10-19] MEDS: Insulin Regular, Human 100 UNIT/ML 3 ML VIAL 10 UNIT IVPUSH (13:05)
--- NOTE | 2021-10-19 14:13 | PHA.MEDREC ---
Pharmacy Consult ? Medication Reconciliation Pharmacy has completed the medication reconciliation. Patient reports not taking many of his prescribed medications. Patient reports not taking atorvastatin 40 mg, vitamin d3, fenofibrate 54 mg, Creon, and Lubiprostone. Patient reports using Kratom OTC which he reports that he has become dependent on it and is afraid of potential withdrawal. Mireya Fuentes, PharmD
[2021-10-19 14:34] LABS: Glucose, Whole Blood 377 mg/dL (60-115)
[2021-10-19 14:50] VITALS: BP 119/65; PULSE 77; RESP 18; O2SAT 96
[2021-10-19] MEDS: Insulin Glargine,Hum.rec.anlog 100 UNIT/ML 10 ML VIAL 40 UNIT SUBCUT (14:57)
[2021-10-19] MEDS: Enoxaparin Sodium 40 MG/0.4 ML SYRINGE SUBCUT (14:57)
[2021-10-19] MEDS: 0.9 % Sodium Chloride Flush 3 ML SYRINGE IVFLUSH (14:58)
--- NOTE | 2021-10-19 15:29 | PM.IMHP ---
History of Present Illness Date of Service: 10/19/21 Chief Complaint: Chest pain A 36 years old male with PMH of obesity, diabetes, GERD among other who presented to the hospital with complaint of recurrent chest pain and lower extremity swelling. The patient reports that he noticed swelling in his legs over the last 2 weeks and he came to the hospital few days ago where he was prescribed Lasix which helped him at home as he lost significant amount of weight and the swelling started to go down but he noticed more chest pain that became more recurrent mainly associated with exercise. He describes it as central, radiates to his neck or all over his chest associated with sweating sometimes and severe tiredness. Resolved with rest. No nausea, vomiting, change in bowel habit but notice short of breath especially when he is going up stairs. EKG in the emergency showed concern for ST wave changes He was found to have significantly elevated blood sugar of 580 with no acetone. He reports he change multiple medications including insulin over the last 10 years with no good control over his sugar. Admitted for further evaluation and treatment. Review of Systems Review of Systems: No fever, chills or weakness Recurrent episodes of chest pain, palpitation No shortness of breath or coughing No abdominal pain, nausea or vomiting No urinary symptoms No any rash or wounds Swelling lower extremities [facility] Medical History Chronic osteomyelitis of right ulna DDD (degenerative disc disease), lumbar Diabetes type 2, uncontrolled Diarrhea Hx of pancreatitis Hypertriglyceridemia Lumbar spinal stenosis Mild sleep apnea Obesity due to excess calories Type 2 diabetes mellitus Vitamin D deficiency Family History Father No problems noted. Mother Graves disease Sister Type 2 diabetes mellitus Surgical History Status post osteotomy Social History Household Members: Significant Other Alcohol intake: current Alcohol intake frequency: does not drink Patient Tobacco Use Status: Former Tobacco user e-Cigarette/Vaping Use: Currently Using Use of substances other than those prescribed or required for medical reasons: No Advance Directives: No Advance Directives Information Provided: Yes Meds Allergies Allergy/AdvReac Type Severity Reaction Status Date / Time ibuprofen Allergy Mild unknown Verified 10/17/21 22:11 pyrantel Allergy Mild hives Verified 10/17/21 22:11 ketorolac [From TORADOL] Allergy Unknown GI UPSET Verified 10/17/21 22:11 NSAIDS (Non-Steroidal Allergy Unknown GI UPSET Verified 10/17/21 22:11 Anti-Inflamma [NSAIDS (NON-STEROIDAL ANTI-INFLAMMA] Active Medications: Current Medications Acetaminophen (Acetaminophen 325 Mg Tablet) 650 mg PO Q6H PRN PRN Reason: Pain, Mild (Pain Scale 1-3) Albuterol Sulfate (Albuterol Sulfate 90 Mcg 8 Gm Inhaler) 2 puff INHALE Q6H PRN PRN Reason: shortness of breath or wheezing Enoxaparin Sodium (Enoxaparin Sodium 40 Mg/0.4 Ml Syringe) 40 mg SUBCUT Q24H [facility] Last Admin: 10/19/21 14:57 Dose: 40 mg Documented by: Furosemide (Furosemide 20 Mg Tablet) 20 mg PO DAILY [facility]; Protocol Insulin Glargine (Insulin Glargine,Hum.Rec.Anlog 100 Unit/Ml 10 Ml Vial) 40 unit SUBCUT DAILY [facility] Last Admin: 10/19/21 14:57 Dose: 40 unit Documented by: Insulin Glargine (Insulin Glargine,Hum.Rec.Anlog 100 Unit/Ml 10 Ml Vial) 30 unit SUBCUT BEDTIME [facility] Insulin Human Lispro (Insulin Lispro 100 Unit/Ml 3 Ml Vial) 10 unit SUBCUT QIDACHS [facility] Insulin Human Lispro (Insulin Lispro 100 Unit/Ml 3 Ml Vial) 0 unit SUBCUT QIDACHS [facility]; Protocol Nitroglycerin (Nitroglycerin 0.4 Mg Tab.Subl) 0.4 mg SUBLINGUAL Q5MX3 PRN PRN Reason: Chest Pain Ondansetron HCl (Ondansetron Hcl 4 Mg/2 Ml Vial) 4 mg IVPUSH Q8H PRN PRN Reason: Nausea and Vomiting Pharmacy Consult (Consult Rx Perform Med Rec) 1 each MISCELLANE ONCE PRN PRN Reason: Consult order Sodium Chloride (0.9 % Sodium Chloride Flush 3 Ml Syringe) 3 ml IVFLUSH QSHIFT [facility] Last Admin: 10/19/21 14:58 Dose: 3 ml Documented by: Home Medications Medication Instructions Recorded Confirmed Last Taken Type Kratom 5 g PO DAILY 10/19/21 10/19/21 10/19/21 History insulin regular hum U-500 conc 85 unit SUBCUT DAILY@0800 10/19/21 10/19/21 10/18/21 History (Humulin R U-500 (Conc) Insulin Kwikpen) insulin regular hum U-500 conc 85 unit SUBCUT DAILY@1200 10/19/21 10/19/21 10/18/21 History (Humulin R U-500 (Conc) Insulin Kwikpen) insulin regular hum U-500 conc 105 unit SUBCUT DAILY@1700 10/19/21 10/19/21 10/18/21 History (Humulin R U-500 (Conc) Insulin Kwikpen) Physical Exam Vital Signs and Narrative: Vital Signs: Last Vital Signs Temp 96.8 F 10/19/21 12:11 Pulse 77 10/19/21 14:50 Resp 18 10/19/21 14:50 BP 119/65 10/19/21 14:50 Pulse Ox 96 10/19/21 14:50 BMI result Body Mass Index 38.2 Const: Other: Constitutional : Alert, oriented, not in distress, obese Neck : Normal inspection, Supple Cardiovascular : RRR, S1 S2, no lower extremity edema Respiratory : Good bilateral air entry, no crackles, wheezes or rhonchi Gastrointestinal: soft, lax, Normal bowel sounds, Non tender Skin : Warm, Dry Neurological : Alert & oriented x3, No focal deficit Results Labs CBC and Chem 7: 10/19/21 11:21 10/19/21 11:21 Labs: Laboratory Results - last 24 hr 10/19/21 10/19/21 10/19/21 11:21 11:21 11:21 MCV 87.1 MCH 29.7 MCHC 34.0 RDW 13.1 Plt Count 335 MPV 10.0 Immature Gran % (Auto) 0.3 Neut % (Auto) 61.2 Lymph % (Auto) 26.8 [place] % (Auto) 8.3 Eos % (Auto) 2.5 Baso % (Auto) 0.9 Lymph # (Auto) 2.5 [place] # (Auto) 0.8 Eos # (Auto) 0.2 Baso # (Auto) 0.1 Abs Immat Gran (auto) 0.03 Absolute Neuts (auto) 5.8 Absolute Nucleated RBC 0.000 Nucleated RBC % (auto) 0.0 PT 11.6 INR 1.0 VBG pH VBG pCO2 VBG pO2 VBG HCO3 VBG O2 Saturation VBG Base Excess Anion Gap 11 L Estim Creat Clear Calc TNP Estimated GFR > 60 POC Glucose Random Glucose 582 H* Calcium 9.1 Magnesium 1.7 Total Bilirubin 0.5 AST 23 ALT 34 Alkaline Phosphatase 117 Troponin I High Sens B-Natriuretic Peptide Total Protein 6.7 Albumin 3.9 Acetone, Qual COVID-19 (COMPA) COVID-19 Clin Com 10/19/21 10/19/21 10/19/21 11:21 11:22 12:35 MCV MCH MCHC RDW Plt Count MPV Immature Gran % (Auto) Neut % (Auto) Lymph % (Auto) [place] % (Auto) Eos % (Auto) Baso % (Auto) Lymph # (Auto) [place] # (Auto) Eos # (Auto) Baso # (Auto) Abs Immat Gran (auto) Absolute Neuts (auto) Absolute Nucleated RBC Nucleated RBC % (auto) PT INR VBG pH VBG pCO2 VBG pO2 VBG HCO3 VBG O2 Saturation VBG Base Excess Anion Gap Estim Creat Clear Calc Estimated GFR POC Glucose Random Glucose Calcium Magnesium Total Bilirubin AST ALT Alkaline Phosphatase Troponin I High Sens < 3.5 B-Natriuretic Peptide < 10 Total Protein Albumin Acetone, Qual Negative COVID-19 (COMPA) Negative [employer] See Note 10/19/21 10/19/21 12:38 14:30 MCV MCH MCHC RDW Plt Count MPV Immature Gran % (Auto) Neut % (Auto) Lymph % (Auto) [place] % (Auto) Eos % (Auto) Baso % (Auto) Lymph # (Auto) [place] # (Auto) Eos # (Auto) Baso # (Auto) Abs Immat Gran (auto) Absolute Neuts (auto) Absolute Nucleated RBC Nucleated RBC % (auto) PT INR VBG pH 7.49 H VBG pCO2 30 VBG pO2 76 VBG HCO3 23 VBG O2 Saturation 95.0 VBG Base Excess 1.3 Anion Gap Estim Creat Clear Calc Estimated GFR POC Glucose 377 H* Random Glucose Calcium Magnesium Total Bilirubin AST ALT Alkaline Phosphatase Troponin I High Sens B-Natriuretic Peptide Total Protein Albumin Acetone, Qual COVID-19 (COMPA) COVID-19 [email or web address] Com Imaging Radiologist's Impressions: Impressions Chest X-Ray 10/19/21 11:34 IMPRESSION: Unremarkable examination. Assessment and Plan (1) Chest pain: Status: Acute (2) Severe hyperglycemia due to diabetes mellitus: Status: Acute (3) Hyponatremia: Status: Acute A 36 years old male with PMH of obesity, diabetes, GERD among other who presented to the hospital with complaint of recurrent chest pain and lower extremity swelling. Chest pain Recurrent, central EKG changes not specific Troponin negative Given telemetry Get cardiology evaluation Fluid overload In lower extremities mainly, improving To do echo Continue Lasix BMP negative Severe hyperglycemia secondary to diabetes type 2 Diabetic diet Received IV insulin To start Lantus 40 in the morning and 30 at nighttime Humalog 10 units with mealtime Sliding scale Hyponatremia Seems to be pseudohyponatremia with corrected sodium of 137 DVT PPX Lovenox Quality Stroke Does the patient have a stroke diagnosis?: No VTE Prior VTE?: No VTE Risk Level:: Medical - moderate - high VTE Device Contraindication: Treatment Not Indicated VTE Drug Contraindication: N/A - Med Ordered
[2021-10-19 16:12] LABS: Estimated Average Glucose 235 mg/dL; Hemoglobin A1c % 9.8 %
[2021-10-19 17:18] LABS: Glucose, Whole Blood 343 mg/dL (60-115)
--- NOTE | 2021-10-19 17:58 | PC.NURSE ---
PT REFUSING INSULIN ORDERED. ADMITING PROVIDER AWARE AND STATES TO GIVE LANTUS AND THEY WILL CONSULT ENDOCRINE IN THE AM
--- NOTE | 2021-10-19 18:38 | MHC.CM.PN ---
CM met with admitted patient with bed assignment pending. No IMM necessary. A&Ox3. Contact info incorrect. lives with patient. They have a 5 day old baby boy at home. Pt has no services. Has DM testing supplies at home. Unemployed. No HCP on file. HCP reviewed, completed and signed per protocol. Copies given and uploaded into [employer] and [facility] / ?.??. HCP/ Shantel Gonzales ([phone]). D/C plan is home without services. Pt states he will drive himself home. CM to follow for d/c needs.
[2021-10-19 22:00] VITALS: BP 154/86; PULSE 75; RESP 18; TEMP 36; O2SAT 96
[2021-10-19] MEDS: Insulin Glargine,Hum.rec.anlog 100 UNIT/ML 10 ML VIAL 30 UNIT SUBCUT (23:26)
[2021-10-19] MEDS: oxyCODONE HCl Immed Release 5 MG TABLET PO (23:26)
[2021-10-20 01:01] LABS: Glucose, Whole Blood 422 mg/dL (60-115)
[2021-10-20] MEDS: 0.9 % Sodium Chloride Flush 3 ML SYRINGE IVFLUSH ×2 (01:52→10:11)
[2021-10-20 02:31] LABS: Glucose, Whole Blood 403 mg/dL (60-115)
[2021-10-20] MEDS: Insulin Lispro 100 UNIT/ML 3 ML VIAL 10 UNIT SUBCUT (02:34)
--- NOTE | 2021-10-20 02:41 | PC.NURSE ---
PATIENT TRANSFERRED FROM MAIN ED TO ED OVERFLOW AT APPROX., 0150, NOTED BLOOD SUGAR LEVELS HIGH, HOSPITALIST ON DUTY ALERTED, POC RECHECK WITH A RESULT OF 403, PATIENT OFFERED NO COMPLAINTS. HOSPITALIST STATED TO COVER WITH 10 UNITS OF LISPRO INSULIN SC AT THIS TIME. EXPLAINED TO PATIENT, HE WAS AGREEABLE IT APPEARS HE DECLINED EARLIER PER MAR DOCUMENTATION/REPORT. INSULIN ORDERD AT 0235 TO RIGHT UPPER ARM.
[2021-10-20] MEDS: Acetaminophen 325 MG TABLET 650 MG PO ×2 (04:24→19:23)
--- NOTE | 2021-10-20 05:00 | ECG_ITS ---
Test Reason : chest pain Blood Pressure : / mmHG Vent. Rate : 074 BPM Atrial Rate : 074 BPM P-R Int : 214 ms QRS Dur : 120 ms QT Int : 410 ms P-R-T Axes : 044 001 032 degrees QTc Int : 455 ms Sinus rhythm with 1st degree A-V block Non-specific intra-ventricular conduction delay Minimal voltage criteria for LVH, may be normal variant ( Juan product ) Borderline ECG When compared with ECG of 19-OCT-2021 11:11, No significant change was found Referred By: Jenny Mcfadden Electronically Signed By:RUBEN CABRERA
--- NOTE | 2021-10-20 07:30 | CA_ITS ---
Transthoracic Echocardiogram Patient (Last, First, Middle): Enrrique Treviño, Gender: Male Date of : 1985 Age: 36 Procedure Date: 10/20/2021 Procedure Type: Transthoracic Echocardiogram Location: [facility] Height: 180.34 cm Weight: 124.29 kg BSA: 2.41 m2 Heart Rate: bpm BP: 154 / 76 mmHg [employer] Supervisor: Referring MD: Jenny Mcfadden MD Symptoms: Recurrent chest pain, CHF Study Quality: Fair ECG Rhythm: Sinus Conclusions: - The left ventricular systolic function is normal. The visually estimated ejection fraction is between 65-70%. - No obvious valvular pathology seen on this study. Findings Left Ventricle Normal left ventricular cavity size. There is mildly increased left ventricular wall thickness. The left ventricular systolic function is normal. The visually estimated ejection fraction is between 65-70%. There is no evidence of regional wall motion abnormalities. Diastolic function is normal for age. Right Ventricle Normal right ventricular cavity size and systolic function. Atria Both atria are normal in size. Aortic Valve There is a normal trileaflet aortic valve. There is no aortic valve stenosis. There is no aortic valve regurgitation. Mitral Valve The mitral valve appears normal. There is trace mitral valve regurgitation. There is no mitral valve stenosis. Pulmonic Valve The pulmonic valve was not well visualized. Tricuspid Valve Normal tricuspid valve structure. There is trace tricuspid valve regurgitation. The pulmonary artery systolic pressure is normal. Great Vessels Top normal ascending aortic size at 3.4cm. Venous The inferior vena cava was not well visualized. The inferior vena cava collapses greater than 50% with inspiration. Top normal size. Pericardium/Pleural There is no evidence of pericardial effusion. Prior Study Comparison No prior study available for comparison. Recommendations, Care & Conclusions No obvious valvular pathology seen on this study. Measurements 2D Linear Measurements IVSd: 1.23 0.6-0.9/0.6-1.0 cm LVIDd: 5.42 3.9-5.3/4.2-5.9 cm LVIDd Index: 2.25 2.4-3.2/2.2-3.1 cm/m2 LVIDs: 3.04 2.0-3.6 cm LVPWd: 1.28 0.7-1.1 cm Ao Root: 3.50 2.1-3.5 cm LA Diam: 3.90 2.7-3.8/3.0-4.0 cm LAIDs Index: 1.62 1.5-2.3 cm/m2 LV Mass: 353.04 67-162/88-224 g LV Mass Index: 146.49 43-95/49-115 g/m2 LVOT Diam: 2.60 3.0+(-)1.3 cm 2D Systolic Function EF 4C: 74.00 >55% EF 2C: 71.80 >55% EF BiP: 74.20 >55% Mitral Valve MV Pk E: 0.78 MV PK A: 0.55 MV Decel Time: 170.00 E/A: 1.40 E'Lateral: 12.20 E'Medial: 9.36 E/E' Med: 8.40 E/E' Lat: 6.40 PHT: 50.00 MVA PHT: 4.40 Decel [place]: 4.61 Aortic Valve AoV Pk Asad: 1.33 AoV Mn Asad: 0.90 AoV VTI: 0.29 AoV Pk Grad: 7.00 Aov Mn Grad: 4.00 OMAR Cont.VTI: 3.37 LVOT LVOT Pk Asad: 0.96 LVOT Mn Asad: 0.67 LVOT VTI: 0.18 LVOT Pk Grad: 4.00 LVOT Mn Grad: 2.00 LVOT Diam: 2.60 LVOT Area: 5.31 Diastolic Function MV Pk E: 0.78 MV Pk A: 0.55 E/A: 1.40 E'Medial: 9.36 E/E' Med: 8.40 E' Laterial: 12.20 E/E' Lat: 6.40 Right Ventricle TAPSE (mm): 29.00 TVS' Asad: 20.00 Tricuspid Valve TR Pk Asad: 1.59 TR Pk Grad: 10.00 Great Vessels Aorta Ao Root-2D: 3.50 2.0-3.7 cm Ao Asc: 3.40 2.1-3.4 cm Pulmonary Valve PV Pk Asad: 0.87 Peak PV Grad: 3.00 Updated in Other Vendor System with Status of Final Rafita Kaye MD electronically signed on 10/20/2021 12:58:04 PM with status of Final
[2021-10-20 07:41] LABS: Hematocrit 43.1 % (42.0-52.0); Hemoglobin 14.5 g/dl (14.0-18.0); Mean Corpuscular HGB Conc 33.6 g/dl (31.0-36.0); Mean Corpuscular Hemoglobin 29.5 pg (27.0-33.0); Mean Corpuscular Volume 87.6 fL (80.0-98.0); Mean Platelet Volume 10.5 fL (9.4-12.4); Platelet Count 369 X10*3/uL (160-400); Red Blood Count 4.92 X10*6/uL (4.60-5.80); Red Cell Distribution Width 13.2 % (11.0-16.0)
[2021-10-20 08:03] LABS: Glucose, Whole Blood 249 mg/dL (60-115)
[2021-10-20] MEDS: Insulin Lispro 100 UNIT/ML 3 ML VIAL SUBCUT (08:05)
[2021-10-20 08:11] LABS: Anion Gap 9 (12-20); Blood Urea Nitrogen 16 mg/dL (9-16); Calcium 9.2 mg/dL (8.4-10.2); Carbon Dioxide 29 mmol/L (22-29); Chloride 103 mmol/L (96-108); Creatinine Clr Calc Pharmacy 157.8; Estimated Glomerular Filt Rate > 60; Glucose Random 280 mg/dL (60-115); Potassium 4.1 mmol/L (3.3-5.1); Sodium 137 mmol/L (135-145)
--- NOTE | 2021-10-20 08:15 | PC.NURSE ---
pt alert and oriented, skin pwd, respirations even and unlabored. pt reports bilateral leg pain but mostly in his right leg, no peading edema noticed at this time ns on the monitor at the monitor,
[2021-10-20 09:07] VITALS: BP 147/67; PULSE 78; RESP 17; TEMP 36.7; O2SAT 98
[2021-10-20 09:46] LABS: Glucose, Whole Blood 302 mg/dL (60-115)
[2021-10-20] MEDS: ALPRAZolam 0.25 MG TABLET PO (10:11)
[2021-10-20] MEDS: Furosemide 20 MG TABLET PO (10:11)
--- NOTE | 2021-10-20 11:22 | PC.NURSE ---
echo at bedside currently
--- NOTE | 2021-10-20 11:39 | P.CONCA_ITS ---
History of Present Illness History of Present Illness Date of Service: 10/20/21 Chief complaint: Chest pain, hyperglycemia, hyponatremia Narrative: This is a cardiology consultation regarding chest pain and leg swelling. He has a history of obesity, type 2 diabetes, GERD among others. He states that, few days ago he noticed swelling in his right lower extremity and slightly in the left side as well. This led to the presentation but today does not have any swelling whatsoever. Probably because of diuretics. Otherwise, he also gets some chest pain on the left side and this can happen sometimes during rest and sometimes during activity. He also has chronic shortness of breath. Otherwise no known coronary disease or myocardial infarction any other known cardiac issues in the past. Review of Systems Review of Systems: Yes all other systems are reviewed and are negative Cardiovascular: Cardiovascular: Reports as per HPI, Reports no additional cardiovascular complaints, Denies acrocyanosis, Denies cool extremities, Denies painful fingertips, Reports chest pain, Reports chest pain at rest, Denies diaphoresis, Denies syncope, Denies irregular heart rhythm, Denies claudication, Denies leg edema, Denies lightheadedness, Denies palpitations and Reports dyspnea Respiratory: Respiratory: Reports dyspnea Neurologic: Denies syncope Endocrine: Endocrine: Denies palpitations PMFSH Past Medical History Medical History Chronic osteomyelitis of right ulna DDD (degenerative disc disease), lumbar Diabetes type 2, uncontrolled Diarrhea Hx of pancreatitis Hypertriglyceridemia Lumbar spinal stenosis Mild sleep apnea Obesity due to excess calories Type 2 diabetes mellitus Vitamin D deficiency Family History Family History Father No problems noted. Mother Graves disease Sister Type 2 diabetes mellitus Surgical History Surgical History Status post osteotomy Social History Social History Household Members: Significant Other Alcohol intake: current Alcohol intake frequency: does not drink Patient Tobacco Use Status: Former Tobacco user e-Cigarette/Vaping Use: Currently Using Use of substances other than those prescribed or required for medical reasons: No Advance Directives: No Advance Directives Information Provided: Yes service: No Current occupational status: unemployed Meds Allergies Allergy/AdvReac Type Severity Reaction Status Date / Time ibuprofen Allergy Mild unknown Verified 10/17/21 22:11 pyrantel Allergy Mild hives Verified 10/17/21 22:11 ketorolac [From TORADOL] Allergy Unknown GI UPSET Verified 10/17/21 22:11 NSAIDS (Non-Steroidal Allergy Unknown GI UPSET Verified 10/17/21 22:11 Anti-Inflamma [NSAIDS (NON-STEROIDAL ANTI-INFLAMMA] Active Medications: Current Medications Acetaminophen (Acetaminophen 325 Mg Tablet) 650 mg PO Q6H PRN PRN Reason: Pain, Mild (Pain Scale 1-3) Last Admin: 10/20/21 04:24 Dose: 650 mg Documented by: Albuterol Sulfate (Albuterol Sulfate 90 Mcg 8 Gm Inhaler) 2 puff INHALE Q6H PRN PRN Reason: shortness of breath or wheezing Enoxaparin Sodium (Enoxaparin Sodium 40 Mg/0.4 Ml Syringe) 40 mg SUBCUT Q24H [facility] Last Admin: 10/19/21 14:57 Dose: 40 mg Documented by: Furosemide (Furosemide 20 Mg Tablet) 20 mg PO DAILY [facility]; Protocol Last Admin: 10/20/21 10:11 Dose: 20 mg Documented by: Insulin Human Lispro (Insulin Lispro 100 Unit/Ml 3 Ml Vial) 0 unit SUBCUT QIDACHS [facility]; Protocol Last Admin: 10/20/21 08:05 Dose: 4 unit Documented by: Insulin Human Lispro (Insulin Lispro 100 Unit/Ml 3 Ml Vial) 15 unit SUBCUT QIDACHS [facility] Nitroglycerin (Nitroglycerin 0.4 Mg Tab.Subl) 0.4 mg SUBLINGUAL Q5MX3 PRN PRN Reason: Chest Pain Non-Formulary Medication (Insulin Regular Hum U-500 Conc [Humulin R U-500 (Conc) Kwikpen]) 105 unit SUBCUT DAILY@1700 ELZA Non-Formulary Medication (Insulin Regular Hum U-500 Conc [Humulin R U-500 (Conc) Kwikpen]) 85 unit subcut DAILY@0800 ELZA Non-Formulary Medication (Insulin Regular Hum U-500 Conc [Humulin R U-500 (Conc) Kwikpen]) 85 unit SUBCUT DAILY@1200 ELZA Ondansetron HCl (Ondansetron Hcl 4 Mg/2 Ml Vial) 4 mg IVPUSH Q8H PRN PRN Reason: Nausea and Vomiting Pharmacy Consult (Consult Rx Perform Med Rec) 1 each MISCELLANE ONCE PRN PRN Reason: Consult order Sodium Chloride (0.9 % Sodium Chloride Flush 3 Ml Syringe) [facility] Last Admin: 10/20/21 10:11 Dose: 3 ml Documented by: Home Medications Medication Instructions Recorded Confirmed Last Taken Type Kratom 5 g PO DAILY 10/19/21 10/19/21 10/19/21 History insulin regular hum U-500 conc 85 unit SUBCUT DAILY@0800 10/19/21 10/19/21 10/18/21 History (Humulin R U-500 (Conc) Insulin Kwikpen) insulin regular hum U-500 conc 85 unit SUBCUT DAILY@1200 10/19/21 10/19/21 10/18/21 History (Humulin R U-500 (Conc) Insulin Kwikpen) insulin regular hum U-500 conc 105 unit SUBCUT DAILY@1700 10/19/21 10/19/21 10/18/21 History (Humulin R U-500 (Conc) Insulin Kwikpen) Physical Exam Vital Signs: Vital Signs: Last Vital Signs Temp 98.1 F 10/20/21 09:07 Pulse 78 10/20/21 09:07 Resp 17 10/20/21 09:07 BP 147/67 H 10/20/21 09:07 Pulse Ox 98 10/20/21 09:07 BMI result Body Mass Index 38.2 Const: General: no acute distress HENMT: Other: Unremarkable Neck: Neck: Yes normal visual inspection Chest: Chest palpation & inspection: normal inspection of the chest Resp: Auscultation: no crackles and no wheezes Cardio: Palpation: normal PMI Heart sounds: S1 normal heart sound present, S2 normal heart sound present, no gallops, no murmurs and no rubs GI: Palpation (GI): Soft to palpation Back/Spine/Pelvis: Other: unremarkable Skin: Lesions: other Neuro: Cranial nerves: Yes Other cranial nerve findings present Extrem: General: Yes other Psych: Mental Status: other Objective Labs and Meds Result diagrams: 10/20/21 06:48 10/20/21 06:48 Lab results: Laboratory Results - last 24 hr 10/19/21 10/19/21 10/19/21 11:21 11:21 11:21 WBC RBC Hgb Hct MCV MCH MCHC RDW Plt Count MPV Absolute Nucleated RBC Nucleated RBC % (auto) PT 11.6 INR 1.0 VBG pH VBG pCO2 VBG pO2 VBG HCO3 VBG O2 Saturation VBG Base Excess Sodium 134 L Potassium 4.2 Chloride 98 Carbon Dioxide 29 Anion Gap 11 L BUN 20 H Creatinine 1.09 Estim Creat Clear Calc TNP Estimated GFR > 60 POC Glucose Random Glucose 582 H* Estimat Average Glucose Hemoglobin A1c % Calcium 9.1 Magnesium 1.7 Total Bilirubin 0.5 AST 23 ALT 34 Alkaline Phosphatase 117 Troponin I High Sens < 3.5 B-Natriuretic Peptide < 10 Total Protein 6.7 Albumin 3.9 Acetone, Qual COVID-19 (COMPA) COVID-19 [place] 10/19/21 10/19/21 10/19/21 11:21 11:22 12:35 WBC RBC Hgb Hct MCV MCH MCHC RDW Plt Count MPV Absolute Nucleated RBC Nucleated RBC % (auto) PT INR VBG pH VBG pCO2 VBG pO2 VBG HCO3 VBG O2 Saturation VBG Base Excess Sodium Potassium Chloride Carbon Dioxide Anion Gap BUN Creatinine Estim Creat Clear Calc Estimated GFR POC Glucose Random Glucose Estimat Average Glucose 235 Hemoglobin A1c % 9.8 Calcium Magnesium Total Bilirubin AST ALT Alkaline Phosphatase Troponin I High Sens B-Natriuretic Peptide Total Protein Albumin Acetone, Qual Negative COVID-19 (COMPA) Negative [employer] See Note 10/19/21 10/19/21 10/19/21 12:38 14:30 17:08 WBC RBC Hgb Hct MCV MCH MCHC RDW Plt Count MPV Absolute Nucleated RBC Nucleated RBC % (auto) PT INR VBG pH 7.49 H VBG pCO2 30 VBG pO2 76 VBG HCO3 23 VBG O2 Saturation 95.0 VBG Base Excess 1.3 Sodium Potassium Chloride Carbon Dioxide Anion Gap BUN Creatinine Estim Creat Clear Calc Estimated GFR POC Glucose 377 H* 343 H Random Glucose Estimat Average Glucose Hemoglobin A1c % Calcium Magnesium Total Bilirubin AST ALT Alkaline Phosphatase Troponin I High Sens B-Natriuretic Peptide Total Protein Albumin Acetone, Qual COVID-19 (COMPA) COVID-19 Clin Com 10/20/21 10/20/21 10/20/21 00:55 02:26 06:48 WBC 11.0 H RBC 4.92 Hgb 14.5 Hct 43.1 MCV 87.6 MCH 29.5 MCHC 33.6 RDW 13.2 Plt Count 369 MPV 10.5 Absolute Nucleated RBC 0.000 Nucleated RBC % (auto) 0.0 PT INR VBG pH VBG pCO2 VBG pO2 VBG HCO3 VBG O2 Saturation VBG Base Excess Sodium Potassium Chloride Carbon Dioxide Anion Gap BUN Creatinine Estim Creat Clear Calc Estimated GFR POC Glucose 422 H* 403 H* Random Glucose Estimat Average Glucose Hemoglobin A1c % Calcium Magnesium Total Bilirubin AST ALT Alkaline Phosphatase Troponin I High Sens B-Natriuretic Peptide Total Protein Albumin Acetone, Qual COVID-19 (COMPA) COVID-19 [employer] Com 10/20/21 10/20/21 10/20/21 06:48 07:59 09:43 WBC RBC Hgb Hct MCV MCH MCHC RDW Plt Count MPV Absolute Nucleated RBC Nucleated RBC % (auto) PT INR VBG pH VBG pCO2 VBG pO2 VBG HCO3 VBG O2 Saturation VBG Base Excess Sodium 137 Potassium 4.1 Chloride 103 Carbon Dioxide 29 Anion Gap 9 L BUN 16 Creatinine 0.86 Estim Creat Clear Calc 157.8 Estimated GFR > 60 POC Glucose 249 H 302 H Random Glucose 280 H D Estimat Average Glucose Hemoglobin A1c % Calcium 9.2 Magnesium Total Bilirubin AST ALT Alkaline Phosphatase Troponin I High Sens B-Natriuretic Peptide Total Protein Albumin Acetone, Qual COVID-19 (COMPA) COVID-19 Clin Com ECG Interpretation: EKG shows sinus rhythm at 74/Min; first-degree heart block with [place] of 240 milliseconds and normal QT. Probable LVH. Imaging Radiologist's impression: Impressions Chest X-Ray 10/19/21 11:34 IMPRESSION: Unremarkable examination. Assessment and Plan (1) Chest pain: Status: Acute (2) Leg swelling: Status: Acute (3) SOB (shortness of breath): Status: Acute (4) Morbid obesity: Status: Acute (5) Diabetes type 2, uncontrolled: Status: Acute Symptoms of leg swelling, chest pain, shortness of breath but without any clear objective data. EKGs unremarkable. High sensitivity troponins are also within normal limits. Cardiac BNP is less than 10. Overall doubt any congestive heart failure in the setting. Probable dependent edema versus related to obesity or diabetes. With regard to chest pain, he does have risk factors and we can consider outpatient stress testing for further evaluation. Echocardiogram is pending today. Procedures Date of Service Date of Service: 10/20/21
--- NOTE | 2021-10-20 12:24 | P.PNIM_ITS ---
Subjective Subjective Date of Service: 10/20/21 Interval History: the patient was seen and evaluated this morning Laying in bed, feels anxious Still reporting episodes of chest pain Denies any fever, chills or shortness of breath No reported other overnight events. Review of Systems No fever, chills or weakness Recurrent episodes of chest pain, no palpitation No shortness of breath or coughing No abdominal pain, nausea or vomiting No urinary symptoms No any rash or wounds Swelling lower extremities Physical Exam Vital Signs: Vital Signs: Last Vital Signs Temp 98.1 F 10/20/21 09:07 Pulse 78 10/20/21 09:07 Resp 17 10/20/21 09:07 BP 147/67 H 10/20/21 09:07 Pulse Ox 98 10/20/21 09:07 BMI result Body Mass Index 38.2 Const: Other: Constitutional : Alert, oriented, not in distress, obese Neck : Normal inspection, Supple Cardiovascular : RRR, S1 S2, no lower extremity edema Respiratory : Good bilateral air entry, no crackles, wheezes or rhonchi Gastrointestinal: soft, lax, Normal bowel sounds, Non tender Skin : Warm, Dry Neurological : Alert & oriented x3, No focal deficit Objective Data Active Medications Acetaminophen (Acetaminophen 325 Mg Tablet) 650 mg PO Q6H PRN PRN Reason: Pain, Mild (Pain Scale 1-3) Last Admin: 10/20/21 04:24 Dose: 650 mg Documented by: ALMITA Albuterol Sulfate (Albuterol Sulfate 90 Mcg 8 Gm Inhaler) 2 puff INHALE Q6H PRN PRN Reason: shortness of breath or wheezing Enoxaparin Sodium (Enoxaparin Sodium 40 Mg/0.4 Ml Syringe) 40 mg SUBCUT Q24H [facility] Last Admin: 10/19/21 14:57 Dose: 40 mg Documented by: ANNA Furosemide (Furosemide 20 Mg Tablet) 20 mg PO DAILY [facility]; Protocol Last Admin: 10/20/21 10:11 Dose: 20 mg Documented by: ANNA Insulin Human Lispro (Insulin Lispro 100 Unit/Ml 3 Ml Vial) 0 unit SUBCUT QIDACHS [facility]; Protocol Nitroglycerin (Nitroglycerin 0.4 Mg Tab.Subl) 0.4 mg SUBLINGUAL Q5MX3 PRN PRN Reason: Chest Pain Patient Own Medication (Insulin Regular Hum U-500 Conc [Humulin R U- 500 (Conc) Kwikpen] 105 each SUBCUT DAILY@1700 [facility] Patient Own Medication (Insulin Regular Hum U-500 Conc [Humulin R U- 500 (Conc) Kwikpen] 85 each SUBCUT DAILY@0800 [facility] Patient Own Medication (Insulin Regular Hum U-500 Conc [Humulin R U- 500 (Conc) Kwikpen] 85 each SUBCUT DAILY@1200 [facility] Ondansetron HCl (Ondansetron Hcl 4 Mg/2 Ml Vial) 4 mg IVPUSH Q8H PRN PRN Reason: Nausea and Vomiting Pharmacy Consult (Consult Rx Perform Med Rec) 1 each MISCELLANE ONCE PRN PRN Reason: Consult order Sodium Chloride (0.9 % Sodium Chloride Flush 3 Ml Syringe) 3 ml IVFLUSH [facility] Last Admin: 10/20/21 10:11 Dose: 3 ml Documented by: ANNA Labs CBC & Chem 7: 10/20/21 06:48 10/20/21 06:48 Labs: Laboratory Results - last 24 hr 10/19/21 10/19/21 10/19/21 11:21 12:35 12:38 MCV MCH MCHC RDW Plt Count MPV Absolute Nucleated RBC Nucleated RBC % (auto) VBG pH 7.49 H VBG pCO2 30 VBG pO2 76 VBG HCO3 23 VBG O2 Saturation 95.0 VBG Base Excess 1.3 Anion Gap Estim Creat Clear Calc Estimated GFR POC Glucose Random Glucose Estimat Average Glucose 235 Hemoglobin A1c % 9.8 Calcium Acetone, Qual Negative 10/19/21 10/19/21 10/20/21 14:30 17:08 00:55 MCV MCH MCHC RDW Plt Count MPV Absolute Nucleated RBC Nucleated RBC % (auto) VBG pH VBG pCO2 VBG pO2 VBG HCO3 VBG O2 Saturation VBG Base Excess Anion Gap Estim Creat Clear Calc Estimated GFR POC Glucose 377 H* 343 H 422 H* Random Glucose Estimat Average Glucose Hemoglobin A1c % Calcium Acetone, Qual 10/20/21 10/20/21 10/20/21 02:26 06:48 06:48 MCV 87.6 MCH 29.5 MCHC 33.6 RDW 13.2 Plt Count 369 MPV 10.5 Absolute Nucleated RBC 0.000 Nucleated RBC % (auto) 0.0 VBG pH VBG pCO2 VBG pO2 VBG HCO3 VBG O2 Saturation VBG Base Excess Anion Gap 9 L Estim Creat Clear Calc 157.8 Estimated GFR > 60 POC Glucose 403 H* Random Glucose 280 H D Estimat Average Glucose Hemoglobin A1c % Calcium 9.2 Acetone, Qual 10/20/21 10/20/21 07:59 09:43 MCV MCH MCHC RDW Plt Count MPV Absolute Nucleated RBC Nucleated RBC % (auto) VBG pH VBG pCO2 VBG pO2 VBG HCO3 VBG O2 Saturation VBG Base Excess Anion Gap Estim Creat Clear Calc Estimated GFR POC Glucose 249 H 302 H Random Glucose Estimat Average Glucose Hemoglobin A1c % Calcium Acetone, Qual Assessment and Plan (1) SOB (shortness of breath): Status: Acute (2) Leg swelling: Status: Acute (3) Severe hyperglycemia due to diabetes mellitus: Status: Acute (4) Chest pain: Status: Acute Assessment and Plan: A 36 years old male with PMH of obesity, diabetes, GERD among other who presented to the hospital with complaint of recurrent chest pain and lower extremity swelling. Chest pain Recurrent, central EKG changes not specific Troponin negative Given telemetry Cardiology input appreciated, pending echo, consider outpatient stress test Fluid overload Very minimal today Pending echo Continue Lasix BMP negative Severe hyperglycemia secondary to diabetes type 2 Diabetic diet Discontinue Lantus insulin HbA1c of 9.8 Restart his home doses of 85, 85 and 105 regular insulin Sliding scale Hyponatremia pseudohyponatremia with corrected sodium of 137 DVT PPX Lovenox Quality Stroke Does the patient have a stroke diagnosis?: No VTE Prior VTE?: No VTE Risk Level:: Medical - moderate - high VTE Device Contraindication: Treatment Not Indicated VTE Drug Contraindication: N/A - Med Ordered
[2021-10-20] MEDS: Pregabalin 75 MG CAPSULE PO (12:31)
[2021-10-20 13:40] LABS: Glucose, Whole Blood 285 mg/dL (60-115)
--- NOTE | 2021-10-20 13:44 | PC.NURSE ---
pt given his 85u of insulin u/500 in his right abd lunch shayy at bedside
[2021-10-20 14:49] VITALS: BP 142/81; PULSE 77; RESP 18; TEMP 36.7; O2SAT 98
[2021-10-20] MEDS: Enoxaparin Sodium 40 MG/0.4 ML SYRINGE SUBCUT (16:16)
[2021-10-20 18:04] LABS: Glucose, Whole Blood 290 mg/dL (60-115)
[2021-10-20] MEDS: oxyCODONE HCl Immed Release 5 MG TABLET PO (18:13)
[2021-10-20 18:40] VITALS: BP 142/89; PULSE 93; RESP 18; TEMP 36.6; O2SAT 95
--- NOTE | 2021-10-20 20:07 | PC.NURSE ---
Assumed care of pt at 1700. Pt medicated per MAR per request. Tele monitor reapplied after shaving areas for leads. Pt ambulatory and in NAD. Ordered own dinner and tolerating PO intake w/o complaint. Pt educated to call for assistance, denies further needs at this time
[2021-10-20 21:36] VITALS: BP 122/61; PULSE 87; RESP 18; TEMP 36.6; O2SAT 96
[2021-10-20 21:36] LABS: Glucose, Whole Blood 359 mg/dL (60-115)
[2021-10-21] MEDS: Acetaminophen 325 MG TABLET 650 MG PO ×2 (00:19→06:25)
[2021-10-21] MEDS: oxyCODONE HCl Immed Release 5 MG TABLET PO ×2 (00:19→06:26)
[2021-10-21 00:26] VITALS: PULSE 90; RESP 20; O2SAT 97
[2021-10-21 02:19] VITALS: BP 137/85; PULSE 92; RESP 20; O2SAT 96
--- NOTE | 2021-10-21 02:33 | ECG_ITS ---
Test Reason : RYTHEM CHANGE Blood Pressure : / mmHG Vent. Rate : 085 BPM Atrial Rate : 085 BPM P-R Int : 210 ms QRS Dur : 118 ms QT Int : 380 ms P-R-T Axes : 072 007 045 degrees QTc Int : 452 ms Sinus rhythm with 1st degree A-V block Minimal voltage criteria for LVH, may be normal variant ( Juan product ) Borderline ECG When compared with ECG of 20-OCT-2021 09:13, No significant change was found Referred By: Rudolph Chaudhry Electronically Signed By:RUBEN CABRERA
[2021-10-21 03:21] LABS: Anion Gap 12 (12-20); Blood Urea Nitrogen 15 mg/dL (9-16); Calcium 9.2 mg/dL (8.4-10.2); Carbon Dioxide 27 mmol/L (22-29); Chloride 99 mmol/L (96-108); Creatinine Clr Calc Pharmacy 152.5; Estimated Glomerular Filt Rate > 60; Glucose Random 364 mg/dL (60-115); Potassium 3.8 mmol/L (3.3-5.1); Sodium 134 mmol/L (135-145)
[2021-10-21 03:26] LABS: Troponin-I High Sensitivity < 3.5 ng/L (<3.5-35.0)
[2021-10-21] MEDS: ALPRAZolam 0.25 MG TABLET PO (03:46)
[2021-10-21 06:26] VITALS: BP 138/77; PULSE 88; RESP 16; O2SAT 97
[2021-10-21 07:26] LABS: Glucose, Whole Blood 331 mg/dL (60-115)
[2021-10-21 07:53] VITALS: BP 151/86; PULSE 80; RESP 18; TEMP 36.4; O2SAT 97
[2021-10-21] MEDS: Furosemide 20 MG TABLET PO (08:02)
--- NOTE | 2021-10-21 08:07 | PC.NURSE ---
Pt received from rn shift mgr: Pt AOx4 and offers no complaints at this time. NSR noted with mainly clear lung sounds. Pt abd round and non-tender. B/L trace ankle edema noted. Pt requesting for in pt stress test to be done during his hospital visit.
[2021-10-21 09:51] VITALS: BP 139/88; PULSE 94; RESP 20; TEMP 36.7; O2SAT 97
--- NOTE | 2021-10-21 11:31 | PM.DS ---
DS: Providers Provider Date of Service: 10/21/21 Date of admission: 10/19/21 14:26 Primary care physician: CONSTANTINE Smith Consults: 10/19/21 14:30 Consult to Cardiology Routine Consulting Provider: Rafita Kaye Reason for consultation: Recurrent Chest pain, CHF symptoms for your kind eval DS: Diagnosis Discharge Diagnosis (1) SOB (shortness of breath): Status: Acute (2) Leg swelling: Status: Acute (3) Severe hyperglycemia due to diabetes mellitus: Status: Acute (4) Chest pain: Status: Acute DS: Summary Hospital Course Hospital Course: patient was admitted for diabetes with hyperglycemia, chest pain, and lower extremity edema. for his chest pain, his troponins remained negative, his ekg changes were felt to be non specific, his echo was unremarkable, with some LVH but with no wall motion abnormalities, there was no evidence of ACS, he was seen by cardiology who given his risk factors, recommended outpatient follow up for stress test. for his lower extremity edema, he was given lasix and edema has improved, his BNP<10 and echo unremarkable, more in favor of dependent edema rather than CHF, on 10/15/21 ED noted a BNP >300, however, this is not seen in the labs. he should continue his lasix maintenance, and elevate legs when possible. for his DM with hyperglycemia he was given insulin with improvement. a1c was 9.8, consistent with poor overall control, he should continue with his insulin and adjustments as needed with PCP. unfortunately, there were some difficulties at time of discharge, while I was leaving the room, the patient did make a threat, get him back in here, i will F him up . patient later apologized for his behaviour. Time Spent with Patient Time attestation: Total time spent providing and/or coordinating discharge services: Discharge coordination time: Greater than 30 minutes Quality: Stroke Does the patient have a stroke diagnosis?: No Physical Exam Vital Signs: Vital Signs: Last Vital Signs Temp 98.0 F 10/21/21 09:51 Pulse 94 10/21/21 09:51 Resp 20 10/21/21 09:51 BP 139/88 10/21/21 09:51 Pulse Ox 97 10/21/21 09:51 BMI result Body Mass Index 38.2 DS: Data Data Completed and Pending Labs on day of discharge: Laboratory Results - last 24 hr 10/20/21 10/20/21 10/20/21 13:35 17:56 21:31 Sodium Potassium Chloride Carbon Dioxide Anion Gap BUN Creatinine Estim Creat Clear Calc Estimated GFR POC Glucose 285 H 290 H 359 H* Random Glucose Calcium Troponin I High Sens 10/21/21 10/21/21 10/21/21 03:00 03:00 07:15 Sodium 134 L Potassium 3.8 Chloride 99 Carbon Dioxide 27 Anion Gap 12 BUN 15 Creatinine 0.89 Estim Creat Clear Calc 152.5 Estimated GFR > 60 POC Glucose 331 H Random Glucose 364 H* Calcium 9.2 Troponin I High Sens < 3.5 Discharge Plan Discharge Patient Disposition: Home, Self-Care Discharge Diagnosis: DM with hyperglycemia, chest pain Referrals: Dwayne Perez FNP- [Primary Care Provider] - 1 Week Discharge Medications: New tramadol 50 mg tablet 50 mg PO BID PRN (Reason: moderate pa) Qty: 14 RF: 0 Continued (DME) Dexcom G6 Transmitter Device See Rx Instructions .ROUTE .MEDSUPPLY Qty: 1 RF: 3 (DME) Dexcom G6 Sensor Device See Rx Instructions .ROUTE .MEDSUPPLY Qty: 3 RF: 3 (DME) blood-glucose meter [FreeStyle [place] Lite] Kit See Rx Instructions .ROUTE .MEDSUPPLY Qty: 1 RF: 0 glucagon 0.5 mg/0.1 mL syringe 1 mg subcut Q20M PRN (Reason: hypoglycemia) Qty: 0.2 RF: 3 albuterol sulfate 90 mcg/actuation HFA aerosol inhaler 2 puff inhalation Q6H PRN (Reason: shortness of breath or wheezing) 30 Days Qty: 8.5 RF: 1 (DME) pen needle, diabetic [BD Ultra-Fine Short Pen Needle] 31 gauge x 5/16 needle See Rx Instructions .Route Qty: 100 RF: 11 furosemide [Lasix] 20 mg tablet 20 mg PO DAILY 20 Days Qty: 20 RF: 0 Humulin R U-500 (Conc) Kwikpen 500 unit/mL (3 mL) insulin pen 105 unit subcut DAILY@1700 RF: 0 Humulin R U-500 (Conc) Kwikpen 500 unit/mL (3 mL) insulin pen 85 unit subcut DAILY@1200 RF: 0 Kratom 5 g PO DAILY RF: 0 Humulin R U-500 (Conc) Kwikpen 500 unit/mL (3 mL) insulin pen 85 unit subcut DAILY@0800 RF: 0 (DME) FreeStyle Lite Strips Strip See Rx Instructions .ROUTE .MEDSUPPLY Qty: 150 RF: 11 (DME) blood-glucose meter [FreeStyle Lite Meter] Kit See Rx Instructions .ROUTE .MEDSUPPLY Qty: 1 RF: 0 (DME) lancets [FreeStyle Lancets] 28 gauge misc See Rx Instructions .ROUTE .MEDSUPPLY Qty: 200 RF: 11 Discharge Orders: Discharge Order (Routine); Ordered 10/21/21 Ordered By: Jasiel Mccullough Diet: diabetic diet Activity on Discharge: As tolerated Stand Alone Forms: Patient Portal Discharge page Care Plan Goals: continue work up for etiology of symptoms (outpatient stress test) Health Concerns: chest pain, uncontrolled diabetes Plan of Treatment: stress test, continue lasix, insulin, monitor glucose Assessment: chest pain - no evidence of ACS, continue outpatient work up for underlying CAD, edema - no signs of CHF, likely dependent edema - can continue lasix, leg elevation.
--- NOTE | 2021-10-21 11:45 | PC.NURSE ---
Pt up at nurse's station voicing anger, frustration and obscenities following routine consult by MD Kaye. Pt initially requested that he have his senior data warehouse architect changed, and pt's hospitalist MD Mccullough made aware. MD Mccullough states he is unable to change senior data warehouse architect as there is [place] service in [facility] [place] Pt made aware. However, pt became increasingly more angry and requesting for the patient advocate and SENIOR PLANNER to talk with him. Patient advocate Augusta at bedside with XIOMY Brown to discuss case with pt. At this time pt refusing to sign D/C paperwork until end of discussion.
--- NOTE | 2021-10-21 12:19 | PC.NURSE ---
Pt asked for his blood sugar to be taken as he feels like it is dropping and he has cold sweats. B/S 285. Pt refused any insulin at this time, and took his own glucose tabs.
[2021-10-21 12:21] LABS: Glucose, Whole Blood 285 mg/dL (60-115)
== END 2021-10-21 12:52 | disposition home or self-care (01) | DRG 420 ==
LOC: HO.ED 13:30 → HO.EDOVER 14:38
PROVIDERS: Hospitalist; Physician Assistant Medical; Admitting Provider Student in an Organized Health Care Education/Training Program; Emergency Provider Emergency Medicine; PCP Nurse Practitioner Family; Visit Provider Internal Medicine
DX: E11.65 Type 2 diabetes mellitus with hyperglycemia (principal); E87.1 Hypo-osmolality and hyponatremia; K21.9 Gastro-esophageal reflux disease without esophagitis; R60.0 Localized edema; E66.01 Morbid (severe) obesity due to excess calories; Z68.38 Body mass index [BMI] 38.0-38.9, adult; Z20.822 Contact with and (suspected) exposure to COVID-19; Z79.4 Long term (current) use of insulin; Z88.6 Allergy status to analgesic agent; Z87.891 Personal history of nicotine dependence; Z79.899 Other long term (current) drug therapy
CPT/HCPCS: 36415; 71046; 80048; 80053; 82009; 82803; 82947; 83036; 83735; 83880; 84484; 85025; 85027; 85610; 87635; 93005; 93306; 96374; 99219; 99285; J1650

== ENCOUNTER → 2021-11-06 07:36 | Outpatient (BNVA) | payer OTHER, SELFPAY | PROVIDERS: PCP Nurse Practitioner Family; Visit Provider Surgery ==

== ENCOUNTER → 2021-11-13 10:03 | Outpatient (BNVA) | payer OTHER, SELFPAY | PROVIDERS: PCP Nurse Practitioner Family; Referring Provider Nurse Practitioner Family; Visit Provider Internal Medicine Cardiovascular Disease | DX: Z01.810 Encounter for preprocedural cardiovascular examination (principal); R07.9 Chest pain, unspecified | CPT/HCPCS: 99212 ==

== ENCOUNTER 2021-11-18 06:17 | Outpatient (REF) | payer OTHER, SELFPAY ==
--- NOTE | ~2021-11-18 | XR_ITS ---
EXAMINATION: XR CHEST: PA AND LATERAL VIEWS XR RIGHT SHOULDER: 4 VIEWS CLINICAL INFORMATION: Pain COMPARISON: Chest x-ray dated 10/19/2021 FINDINGS: Normal symmetric lung volumes. No parenchymal consolidation. No pleural effusion. No pneumothorax. Cardiomediastinal silhouette and pulmonary vascularity are within normal limits. No acute osseous abnormalities. Previous left distal clavicular resection/Ulises procedure with widening of the acromioclavicular interval on the left. Right shoulder shows no fractures or dislocation. Calcific rotator cuff tendinopathy. Small marginal osteophytes along the acromioclavicular joint. XR/XR shoulder RT min 2V IMPRESSION: * Lungs are clear. * No acute fracture or dislocation with respect to the right shoulder. * Calcific rotator cuff tendinopathy evident on the right. * Small marginal osteophytes along the right acromioclavicular joint. * Previous Ulises procedure on the left.
--- NOTE | ~2021-11-18 | XR_ITS ---
EXAMINATION: XR CHEST: PA AND LATERAL VIEWS XR RIGHT SHOULDER: 4 VIEWS CLINICAL INFORMATION: Pain COMPARISON: Chest x-ray dated 10/19/2021 FINDINGS: Normal symmetric lung volumes. No parenchymal consolidation. No pleural effusion. No pneumothorax. Cardiomediastinal silhouette and pulmonary vascularity are within normal limits. No acute osseous abnormalities. Previous left distal clavicular resection/Ulises procedure with widening of the acromioclavicular interval on the left. Right shoulder shows no fractures or dislocation. Calcific rotator cuff tendinopathy. Small marginal osteophytes along the acromioclavicular joint. XR/XR chest 2V IMPRESSION: * Lungs are clear. * No acute fracture or dislocation with respect to the right shoulder. * Calcific rotator cuff tendinopathy evident on the right. * Small marginal osteophytes along the right acromioclavicular joint. * Previous Ulises procedure on the left.
[2021-11-18 06:32] LABS: MANUAL DIFF FLAG NO
--- NOTE | 2021-11-18 06:42 | ECG_ITS ---
Test Reason : type 2 diabetes mellitus Blood Pressure : / mmHG Vent. Rate : 075 BPM Atrial Rate : 075 BPM P-R Int : 210 ms QRS Dur : 116 ms QT Int : 416 ms P-R-T Axes : 057 009 028 degrees QTc Int : 464 ms Sinus rhythm with 1st degree A-V block Otherwise normal ECG When compared with ECG of 21-OCT-2021 02:35, No significant change was found Referred By: Leonid Harman Electronically Signed By:Marco Bill
[2021-11-18 07:32] LABS: Basophils Absolute Auto 0.1 X10*3/uL (0.0-0.2); Eosinophils Absolute Auto 0.2 X10*3/uL (0.0-0.4); Eosinophils Percent Auto 1.9 % (0-4); Hemoglobin 14.2 g/dl (14.0-18.0); Imm Gran Abs Auto 0.05 X10*3/uL (0.00-0.03); Imm Gran Pct Auto 0.5 % (0.0-0.4); Lymphocytes Absolute Auto 3.3 X10*3/uL (1.2-4.9); Lymphocytes Percent Auto 30.4 % (20-40); Mean Corpuscular HGB Conc 33.8 g/dl (31.0-36.0); Mean Corpuscular Hemoglobin 29.3 pg (27.0-33.0); Mean Corpuscular Volume 86.8 fL (80.0-98.0); Mean Platelet Volume 10.6 fL (9.4-12.4); Monocytes Absolute Auto 0.9 X10*3/uL (0.1-1.2); Monocytes Percent Auto 8.3 % (2-11); Neutrophils Absolute Auto 6.2 x10*3/uL (2.0-8.3); Neutrophils Percent Auto 57.9 % (45-73); Platelet Count 359 X10*3/uL (160-400); Red Blood Count 4.84 X10*6/uL (4.60-5.80); Red Cell Distribution Width 13.7 % (11.0-16.0); White Blood Count 10.8 X10*3/uL (4.8-10.8)
[2021-11-18 07:43] LABS: Estimated Average Glucose 255 mg/dL; Hemoglobin A1c % 10.5 %
[2021-11-18 08:06] LABS: Alanine Aminotransferase 36 U/L (0-40); Alkaline Phosphatase 98 U/L (39-117); Anion Gap 12 (12-20); Aspartate Amino Transferase 31 U/L (5-37); Bilirubin Total 0.8 mg/dL (0.0-1.0); Blood Urea Nitrogen 18 mg/dL (9-16); C Reactive Protein 1.11 mg/dL (< or = 0.50); Calcium 9.4 mg/dL (8.4-10.2); Carbon Dioxide 28 mmol/L (22-29); Chloride 98 mmol/L (96-108); Cholesterol 112 mg/dL; Estimated Glomerular Filt Rate > 60; Glucose Random 357 mg/dL (60-115); HDL Cholesterol 24 mg/dL; Iron 68 mcg/dL (45-160); LDL Cholesterol Calculated 29 mg/dl; Percent Iron Saturation 23 % (15-50); Sodium 134 mmol/L (135-145); Total Iron Binding Capacity 290 mcg/dL (228-428); Total Protein 6.8 g/dL (6.5-8.0); Triglycerides 299 mg/dL; Unsaturated Iron Binding 222 ug/dL
[2021-11-18 08:23] LABS: Ferritin 320 ng/mL (20-250); Insulin 10 uU/mL (2-29); TSH reflex Free T4 3.12 uIU/mL (0.32-4.0); Vitamin D 25-OH Total 26.3 ng/mL (>30)
[2021-11-18 08:30] LABS: Folate 18.6 ng/mL (> or = 4.0); Vitamin B12 745 pg/mL (200-900)
[2021-11-19 16:16] LABS: Calcium (PTHI) 9.3 mg/dL (8.6-10.3); PTHI 65 pg/mL (14-64)
[2021-11-21 07:02] LABS: Zinc 75 mcg/dL (60-130)
[2021-11-23 06:08] LABS: Vitamin B1 8 nmol/L (8-30)
[2021-11-25 14:21] LABS: Vitamin A 36 mcg/dL (38-98)
== END 2021-11-18 06:18 | disposition home or self-care (01) ==
LOC: HO.LAB 06:17
PROVIDERS: Absent Provider Nurse Practitioner Family; PCP Nurse Practitioner Family; Visit Provider Surgery
DX: M25.511 Pain in right shoulder (principal); E11.65 Type 2 diabetes mellitus with hyperglycemia; E66.9 Obesity, unspecified; E78.1 Pure hyperglyceridemia; G47.30 Sleep apnea, unspecified; I10 Essential (primary) hypertension; K21.9 Gastro-esophageal reflux disease without esophagitis
CPT/HCPCS: 36415; 71046; 73030; 80053; 80061; 82306; 82607; 82728; 82746; 83036; 83525; 83540; 83970; 84425; 84443; 84590; 84630; 85025; 86140; 93005

== ENCOUNTER → 2021-12-04 08:07 | Outpatient (BNVA) | payer OTHER, SELFPAY | PROVIDERS: PCP Nurse Practitioner Family; Visit Provider Surgery ==

== ENCOUNTER → 2021-12-09 08:15 | Outpatient (BNVA) | payer OTHER, SELFPAY | PROVIDERS: PCP Nurse Practitioner Family; Visit Provider Dietitian, Registered | DX: E66.9 Obesity, unspecified (principal) | CPT/HCPCS: 97802 ==

== ENCOUNTER → 2021-12-11 08:58 | Outpatient (BNVA) | payer OTHER, SELFPAY | PROVIDERS: PCP Nurse Practitioner Family; Visit Provider Physician Assistant | DX: M75.21 Bicipital tendinitis, right shoulder (principal); M65.20 Calcific tendinitis, unspecified site | CPT/HCPCS: 99202 ==

== ENCOUNTER 2021-12-15 08:13 | Outpatient (REF) | payer OTHER, SELFPAY ==
--- NOTE | 2021-12-15 17:37 | PFT_ITS ---
Forced vital capacity 90%, FEV1 94%. FEV1/FVC ratio is 83. URL70-32 99% and MVV 96%. All these flow volumes are normal. Post bronchodilator therapy, there is no significant change. Total lung capacity 95%. Residual volume 101%. Diffusion capacity 110%. CONCLUSION: Normal pulmonary function test and there is no evidence of obstructive or restrictive pulmonary disorder. MD TERRENCE Veloz/MODL / [id number]
[2021-12-18 14:33] LABS: H Pylori Breath Test Indeterminate (Negative)
== END 2021-12-15 08:14 | disposition home or self-care (01) ==
LOC: HO.RESP 08:13
PROVIDERS: PCP Nurse Practitioner Family; Visit Provider Surgery
DX: E11.65 Type 2 diabetes mellitus with hyperglycemia (principal); E66.9 Obesity, unspecified; E78.1 Pure hyperglyceridemia; G47.30 Sleep apnea, unspecified; I10 Essential (primary) hypertension; K21.9 Gastro-esophageal reflux disease without esophagitis; R07.9 Chest pain, unspecified; J45.41 Moderate persistent asthma with (acute) exacerbation; Z11.0 Encounter for screening for intestinal infectious diseases
CPT/HCPCS: 36415; 83013; 94060; 94727; 94729; 99211

== ENCOUNTER 2021-12-17 08:00 | Outpatient (REF) | payer OTHER, SELFPAY ==
--- NOTE | ~2021-12-17 | US_ITS ---
EXAMINATION: US COMPLETE ABDOMEN WITH LIVER ELASTOGRAPHY CLINICAL INFORMATION: Type 2 diabetes mellitus with hyperglycemia. COMPARISON: None. TECHNIQUE: Real-time imaging of the abdominal viscera. Noninvasive ultrasound liver fibrosis assessment is performed using Connie ElastPQ point quantification shear wave elastography (2D-SWE) with a C5-2 MHz transducer. Multiple elastography samples are obtained. FINDINGS: PANCREAS: The visualized pancreatic head and body are normal in appearance. The remainder of the pancreas is obscured from visualization by the overlying bowel gas. ABDOMINAL AORTA: The proximal, middle, and distal aortic segments are normal in caliber. INFERIOR VENA CAVA: Visualized portions are normal. LIVER: The liver demonstrates normal size, contour and increased echogenicity. No focal lesion or intrahepatic biliary duct dilatation. The right lobe measures 22.7 cm in length. The left lobe measures 15.6 cm in length. Portal flow is hepatopedal. Shear wave liver elastography median stiffness is 1.55 m/s (reference: normal median stiffness is 1.3 m/s or less). IQR/median stiffness to assess sampling precision is 0.06 (reference: good quality data set is IQR/median stiffness of 0.15 or less). GALLBLADDER: Normal. The gallbladder is physiologically distended without evidence of stones, sludge, polyps, wall thickening or pericholecystic fluid. COMMON BILE DUCT: Normal in caliber measuring 0.5 cm in diameter. RIGHT KIDNEY: There are multiple anechoic cysts. An upper pole cyst measuring 2.5 x 2.0 x 3.4 cm, a mid pole cyst measuring 1.7 x 1.3 x 2.1 cm, a lower pole cyst measuring 3.8 x 2.3 x 2.8 cm. There is a focal echogenic area in the upper pole cortex right kidney measuring 0.8 x 0.9 x 0.8 cm, likely angiomyolipoma. No hydronephrosis. No calculi or focal parenchymal lesions. The kidney measures 14.3 cm in maximum dimension. LEFT KIDNEY: There are multiple anechoic cysts; a midpole cyst measuring 2.1 x 1.7 x 2.2 cm, midpole cyst measuring 1.0 x 0.8 x 0.9 cm, an exophytic cyst laterally measuring 1.0 x 0.7 x 0.6 cm. There is an echogenic lesion in the upper pole measuring 1.3 x 1.0 x 1.3 cm, likely angiomyolipoma. No hydronephrosis. No renal calculi or focal parenchymal lesions. The kidney measures 13.2 cm in maximum dimension. SPLEEN: Normal. The spleen measures 13.0 cm in maximum dimension. FREE FLUID: None. US/US abdomen comp w elastography IMPRESSION: 1. Hepatomegaly with hepatic steatosis without focal lesion. Bilateral renal cysts and angiomyolipoma. Borderline spleen. 2. Liver elastography: Median liver stiffness 1.55 m/s corresponding to cACLD (ruled out). REFERENCE: Society of Radiologists in Ultrasound Liver Stiffness Thresholds (2020): LIVER STIFFNESS THRESHOLDS: *Liver Stiffness equal or less than 1.3 m/s: High probability of being normal. *Liver Stiffness less than 1.7 m/s: In the absence of other known clinical signs, rules out compensated advanced chronic liver disease. *Liver Stiffness 1.7-2.1 m/s: Suggestive of compensated advanced chronic liver disease but need further test for confirmation. *Liver Stiffness over 2.1 m/s: Rules in compensated advanced chronic liver disease. *Liver Stiffness over 2.4 m/s: Suggestive of clinically significant portal hypertension. QUALITY OF DATA SET: *IQR/Median value equal or less than 0.15 implies a quality data set. *IQR/Median value over 0.15 implies a poor quality data set. SIGNIFICANT CHANGE FROM PRIOR EXAM: Significant change if liver stiffness measurement is 10% or greater from prior exam. OTHER CONSIDERATIONS: The stage of liver fibrosis may be overestimated in the setting of acute hepatitis, liver inflammation, elevated liver function tests, hepatic vascular congestion, obstructive cholestasis, non-fasting state, and infiltrative diseases such as amyloidosis and lymphoma. In some patients with NAFLD, the liver stiffness thresholds for compensated advanced chronic liver disease may be lower. In causes other than viral hepatitis and NAFLD, liver stiffness thresholds are not well established.
--- NOTE | ~2021-12-17 | FL_ITS ---
EXAMINATION: XR FLUOROSCOPY UPPER GI WITH AIR CLINICAL INFORMATION: Type 2 diabetes mellitus with hyperglycemia. COMPARISON: None TECHNIQUE: Air-contrast upper GI examination. FINDINGS: There is normal apposition of the focal cords while saying E. There is normal elevation of the soft palate while saying candy. Patient swallowed thin and thick barium without difficulty. No nasopharyngeal reflux or tracheal aspiration was identified. No Zenker's diverticulum. No hiatal hernia present. No gastroesophageal reflux was elicited during the study including with siphon test. No mucosal abnormality is present. There is normal esophageal motility. The stomach demonstrates normal distensibility without evidence of abnormal mass or ulceration. There was no delay in gastric emptying. The duodenal bulb and sweep appear unremarkable. FLUOROSCOPY TIME: 1.4 minutes DOSE AREA PRODUCT: 16.753 Gy-cm2 (mayers-centimeter squared) FL/FL upper GI w air IMPRESSION: Normal air-contrast upper GI examination.
== END 2021-12-17 08:01 | disposition home or self-care (01) ==
LOC: HO.US 08:00
PROVIDERS: PCP Nurse Practitioner Family; Visit Provider Surgery
DX: E66.9 Obesity, unspecified (principal); E11.65 Type 2 diabetes mellitus with hyperglycemia; E78.1 Pure hyperglyceridemia; G47.30 Sleep apnea, unspecified; I10 Essential (primary) hypertension; K21.9 Gastro-esophageal reflux disease without esophagitis
CPT/HCPCS: 74246; 76705; 76981

== ENCOUNTER → 2022-01-01 08:08 | Outpatient (BNVA) | payer OTHER, SELFPAY | PROVIDERS: PCP Nurse Practitioner Family; Visit Provider Surgery ==

== ENCOUNTER → 2022-01-08 09:30 | Outpatient (BNVA) | payer OTHER, SELFPAY | PROVIDERS: PCP Nurse Practitioner Family; Visit Provider Nurse Practitioner Gerontology | DX: E11.65 Type 2 diabetes mellitus with hyperglycemia (principal); E78.1 Pure hyperglyceridemia; E66.01 Morbid (severe) obesity due to excess calories; Z68.35 Body mass index [BMI] 35.0-35.9, adult | CPT/HCPCS: 82947 ==

== ENCOUNTER 2022-01-13 06:05 | Inpatient (IN) | payer OTHER, SELFPAY ==
[2022-01-05 09:49] VITALS: BMI 33.7
[2022-01-07 08:23] LABS: MANUAL DIFF FLAG NO
[2022-01-07 08:48] LABS: Basophils Absolute Auto 0.1 X10*3/uL (0.0-0.2); Basophils Percent Auto 0.8 % (0-2); Eosinophils Absolute Auto 0.2 X10*3/uL (0.0-0.4); Hematocrit 44.2 % (42.0-52.0); Hemoglobin 14.3 g/dl (14.0-18.0); Imm Gran Abs Auto 0.03 X10*3/uL (0.00-0.03); Imm Gran Pct Auto 0.4 % (0.0-0.4); Lymphocytes Absolute Auto 2.3 X10*3/uL (1.2-4.9); Lymphocytes Percent Auto 30.7 % (20-40); Mean Corpuscular HGB Conc 32.4 g/dl (31.0-36.0); Mean Corpuscular Hemoglobin 29.5 pg (27.0-33.0); Mean Corpuscular Volume 91.1 fL (80.0-98.0); Mean Platelet Volume 10.8 fL (9.4-12.4); Monocytes Absolute Auto 0.7 X10*3/uL (0.1-1.2); Monocytes Percent Auto 8.7 % (2-11); Neutrophils Absolute Auto 4.4 x10*3/uL (2.0-8.3); Neutrophils Percent Auto 57.4 % (45-73); Platelet Count 326 X10*3/uL (160-400); Red Blood Count 4.85 X10*6/uL (4.60-5.80); Red Cell Distribution Width 13.9 % (11.0-16.0); White Blood Count 7.6 X10*3/uL (4.8-10.8)
[2022-01-07 08:59] LABS: INTERNATIONAL NORM RATIO 0.9 (0.9-1.1); Prothrombin Time 10.7 SEC (9.9-13.0)
[2022-01-07 09:01] LABS: Partial Thromboplastin Time 32.7 SEC (24.1-38.0)
[2022-01-07 09:03] LABS: Estimated Average Glucose 269 mg/dL
[2022-01-07 10:11] LABS: Alanine Aminotransferase 37 U/L (0-40); Albumin Level 3.8 g/dL (3.5-5.0); Alkaline Phosphatase 101 U/L (39-117); Anion Gap 12 (12-20); Aspartate Amino Transferase 22 U/L (5-37); Bilirubin Total 0.9 mg/dL (0.0-1.0); Blood Urea Nitrogen 10 mg/dL (9-16); C Reactive Protein 0.79 mg/dL (< or = 0.50); Calcium 9.4 mg/dL (8.4-10.2); Carbon Dioxide 30 mmol/L (22-29); Chloride 99 mmol/L (96-108); Cholesterol 117 mg/dL; Creatinine Clr Calc Pharmacy 134.1; Estimated Glomerular Filt Rate > 60; HDL Cholesterol 28 mg/dL; LDL Cholesterol Calculated 52 mg/dl; Potassium 4.7 mmol/L (3.3-5.1); Sodium 136 mmol/L (135-145); Total Protein 6.3 g/dL (6.5-8.0); Triglycerides 189 mg/dL
[2022-01-07 10:32] LABS: Insulin 14 uU/mL (2-29); TSH reflex Free T4 1.17 uIU/mL (0.32-4.0)
[2022-01-07 10:59] LABS: Glucose Random 412 mg/dL (60-115)
[2022-01-08 16:36] LABS: LDL Cholesterol Direct 52 mg/dL (<100)
--- NOTE | 2022-01-09 00:47 | P.HPSUR_ITS ---
Pre-Procedural Eval Section A Date of Service: 01/09/22 The patient is an INPATIENT: Yes The History & Physical has been completed within 30 days and I have reviewed it.: Yes Section B Chief Complaint: Obesity, Relevant Family History (Specify if Yes): No Relevant Social History: None Present Medications: None Medical History: No relevant PMH History of Previous Operations: No relevant previous surgery Allergies: Allergies Allergy/AdvReac Type Severity Reaction Status Date / Time ketorolac [From TORADOL] Allergy Severe severe GI Verified 01/08/22 09:51 pain pyrantel Allergy Mild rash on Verified 01/08/22 09:51 back NSAIDS (Non-Steroidal AdvReac Intermediate GI UPSET Verified 01/08/22 09:51 Anti-Inflamma [NSAIDS (NON-STEROIDAL ANTI-INFLAMMA] Review of Systems Sugical H&P ROS: Negative: Constitution, Cardiovascular, Respiratory, Neurological, Psychiatric, Hem-Onc, Allergic/Immunologic, Gastrointestinal, Genitourinary, Musculoskeletal, Integumentary, Endocrine and Eye s/Ears/Nose/Throat Exam Surgical H&P Exam: Normal: HEENT, Normal: Heart, Normal: Lungs, Normal: Extremities, Normal: Abdomen, Normal: Skin and Normal: Neurological Plan Diagnosis/Plan: Unchanged I have reviewed the history and physical and performed a pertinent physical examination on my patient. No changes have occurred unless specified.
--- NOTE | 2022-01-12 09:14 | P.CONAN_ITS ---
Documented by User: Juani Maxwell NP 01/12/22 09:19 HPI - Anesthesia Eval Consult details Narrative: 36yo M for Gastrectomy Sleeve,EGD,poss diaphragmatic hernia,poss ventral hernia,poss open Increasing A1C and elevated blood glucose. Seen by endocrine with increase in insulin. Dr Rosendo sagastume Will assess glucose DOS. [facility] Active Problems Active Problems: All Active Problems (Updated 01/05/22 @ 09:48 by Fang Gomes, LAURA) Fatigue (Acute) Kidney cysts (Acute) Leukocytosis (Acute) Low testosterone (Acute) Abdominal pain (Acute) Gallbladder sludge (Acute) Leukocytosis (Acute) Early satiety (Acute) Irritable bowel syndrome with both constipation and diarrhea (Acute) Diabetes type 2, uncontrolled (Acute) Obesity (Acute) Lumbar back pain with radiculopathy affecting lower extremity (Acute) Pruritus ani (Acute) Rectal candidiasis (Acute) Morbid obesity (Acute) Sleep apnea (Acute) Calf swelling (Acute) Chest pain (Acute) Severe hyperglycemia due to diabetes mellitus (Acute) Elevated brain natriuretic peptide (BNP) level (Acute) Leg swelling (Acute) SOB (shortness of breath) (Acute) Anxiety (Acute) BMI 38.0-38.9,adult (Acute) Right shoulder pain (Acute) Abnormal x-ray of shoulder (Acute) Vitamin A deficiency (Acute) BMI 36.0-36.9,adult (Acute) Biceps tendonitis on right (Acute) Calcific tendonitis (Acute) GERD (gastroesophageal reflux disease) (Acute) Lower extremity edema (Acute) Hypertension (Acute) Back pain (Acute) Hx of pancreatitis (Acute) Obesity due to excess calories (Acute) Hypertriglyceridemia (Acute) DDD (degenerative disc disease), lumbar (Acute) Vitamin D deficiency (Acute) Type 2 diabetes mellitus (Acute) Chronic osteomyelitis of right ulna (Acute) Past Medical History Medical History (Updated 01/05/22 @ 09:48 by Fang Gomes, LAURA) Anesthesia complication Back pain Chronic osteomyelitis of right ulna COVID-19 vaccine series completed Current every day vaping DDD (degenerative disc disease), lumbar Diarrhea GERD (gastroesophageal reflux disease) Hx of pancreatitis Hypertension Hypertriglyceridemia Lower extremity edema Lumbar spinal stenosis Mild sleep apnea Obesity due to excess calories Type 2 diabetes mellitus Vitamin D deficiency Family History Family History Father No problems noted. Mother Graves disease Sister Type 2 diabetes mellitus Surgical History Surgical History (Updated 01/08/22 @ 09:38 by BRAD Phelps) History of surgery on right wrist Hx of shoulder surgery Hx of toe surgery S/P pyloromyotomy, follow-up exam Status post osteotomy Social History Social History Household Members: Significant Other Are you a primary skin care consultant to a significant other at home: No Do you presently have visiting nurse or other home services: No Alcohol intake: current Alcohol intake frequency: does not drink Patient Tobacco Use Status: Former Tobacco user Tobacco use type: Cigarette and Smokeless Tobacco Years Smoked: currently vaping daily e-Cigarette/Vaping Use: Currently Using Use of substances other than those prescribed or required for medical reasons: Yes Substance Use Type Other:: Kratom CBD supplement Have you been hit, kicked, punched, or otherwise hurt by someone within the past year? If so, by whom?: No Are you DNR?: No Advance Directives: Yes Advance Directives Information Provided: Yes Advance Directives on File: Yes Advance Directives Date on File: 10/20/21 Recently lost weight without trying: No Eating poorly because of decreased appetite: No Nutrition Risks: No Nutritional Risk Poor oral hygiene: No (upper partial) service: No Current occupational status: unemployed Meds Allergies Allergy/AdvReac Type Severity Reaction Status Date / Time ketorolac [From TORADOL] Allergy Severe severe GI Verified 01/08/22 09:51 pain pyrantel Allergy Mild rash on Verified 01/08/22 09:51 back NSAIDS (Non-Steroidal AdvReac Intermediate GI UPSET Verified 01/08/22 09:51 Anti-Inflamma [NSAIDS (NON-STEROIDAL ANTI-INFLAMMA] Home Medications Medication Instructions Recorded Confirmed Last Taken Type Kratom 5 g PO DAILY 10/19/21 01/05/22 10/19/21 History atorvastatin 20 mg tablet 20 mg PO BEDTIME 11/02/21 01/08/22 Unknown History cholecalciferol (vitamin D3) 50 50 mcg PO DAILY 11/02/21 01/08/22 Unknown History mcg (2,000 unit) capsule fenofibrate 54 mg tablet 54 mg PO DAILY 11/02/21 01/08/22 Unknown History furosemide 20 mg tablet (Lasix) 20 mg PO 2XW 01/05/22 01/05/22 Unknown History tramadol 50 mg tablet 50 mg PO BID PRN 01/05/22 01/05/22 Unknown History Exam Exam Date and Time: January 12, 2022 0914 Height,Weight and Vital Signs: Height 5 ft 11 in Weight 109.769 kg Pertinent Lab Results Pertinent Lab Results: Laboratory Tests 01/07/22 01/07/22 01/07/22 08:15 08:15 08:15 WBC 7.6 RBC 4.85 Hgb 14.3 Hct 44.2 MCV 91.1 MCH 29.5 MCHC 32.4 RDW 13.9 Plt Count 326 MPV 10.8 Immature Gran % (Auto) 0.4 Neut % (Auto) 57.4 Lymph % (Auto) 30.7 Riley % (Auto) 8.7 Eos % (Auto) 2.0 Baso % (Auto) 0.8 Lymph # (Auto) 2.3 Riley # (Auto) 0.7 Eos # (Auto) 0.2 Baso # (Auto) 0.1 Abs Immat Gran (auto) 0.03 Absolute Neuts (auto) 4.4 Absolute Nucleated RBC 0.000 Nucleated RBC % (auto) 0.0 PT 10.7 INR 0.9 APTT 32.7 Sodium 136 Potassium 4.7 Chloride 99 Carbon Dioxide 30 H Anion Gap 12 BUN 10 Creatinine 0.95 Estim Creat Clear Calc 134.1 Estimated GFR > 60 Random Glucose 412 H* Estimat Average Glucose Hemoglobin A1c % Insulin Level 14 Calcium 9.4 Total Bilirubin 0.9 AST 22 ALT 37 Alkaline Phosphatase 101 C-Reactive Protein 0.79 H Total Protein 6.3 L Albumin 3.8 Triglycerides 189 Cholesterol 117 LDL Cholesterol Direct LDL Cholesterol, Calc 52 HDL Cholesterol 28 TSH 1.17 Blood Type Antibody Screen 01/07/22 01/07/22 01/07/22 08:15 08:15 08:15 WBC RBC Hgb Hct MCV MCH MCHC RDW Plt Count MPV Immature Gran % (Auto) Neut % (Auto) Lymph % (Auto) Riley % (Auto) Eos % (Auto) Baso % (Auto) Lymph # (Auto) Riley # (Auto) Eos # (Auto) Baso # (Auto) Abs Immat Gran (auto) Absolute Neuts (auto) Absolute Nucleated RBC Nucleated RBC % (auto) PT INR APTT Sodium Potassium Chloride Carbon Dioxide Anion Gap BUN Creatinine Estim Creat Clear Calc Estimated GFR Random Glucose Estimat Average Glucose 269 Hemoglobin A1c % 11.0 Insulin Level Calcium Total Bilirubin AST ALT Alkaline Phosphatase C-Reactive Protein Total Protein Albumin Triglycerides Cholesterol LDL Cholesterol Direct 52 LDL Cholesterol, Calc HDL Cholesterol TSH Blood Type O Positive Antibody Screen NEGATIVE Narrative Narrative: EKG 10/2021 Vent. Rate : 075 BPM ? ? Atrial Rate : 075 BPM ?? P-R Int : 210 ms? QRS Dur : 116 ms ? ? QT Int : 416 ms ? ? ? P-R-T Axes : 057 009 028 degrees ?? QTc Int : 464 ms ? Sinus rhythm with 1st degree A-V block Otherwise normal ECG When compared with ECG of 21-OCT-2021 02:35, No significant change was found ECHO 09/2021 Conclusions: - The left ventricular systolic function is normal.? The visually estimated ejection fraction is between 65-70%. ? - No obvious valvular pathology seen on this study.? Nuc Stress at [facility] per cardiac ov note Assessment and Plan Assessment Anesthesia Assessment: Chart Reviewed Documented by User: Enrrique Munson MD 01/13/22 07:47 [facility] Past Medical History Medical History (Updated 01/05/22 @ 09:48 by Fang Gomes RN) Anesthesia complication Back pain Chronic osteomyelitis of right ulna COVID-19 vaccine series completed Current every day vaping DDD (degenerative disc disease), lumbar Diarrhea GERD (gastroesophageal reflux disease) Hx of pancreatitis Hypertension Hypertriglyceridemia Lower extremity edema Lumbar spinal stenosis Mild sleep apnea Obesity due to excess calories Type 2 diabetes mellitus Vitamin D deficiency Family History Family History Father No problems noted. Mother Graves disease Sister Type 2 diabetes mellitus Family history of problems with anesthesia: No Surgical History Surgical History (Updated 01/08/22 @ 09:38 by BRAD Phelps) History of surgery on right wrist Hx of shoulder surgery Hx of toe surgery S/P pyloromyotomy, follow-up exam Status post osteotomy History of Problems with Anesthesia: No Social History Social History Household Members: Significant Other Are you a primary skin care consultant to a significant other at home: No Do you presently have visiting nurse or other home services: No Alcohol intake: current Alcohol intake frequency: does not drink Patient Tobacco Use Status: Former Tobacco user Tobacco use type: Cigarette and Smokeless Tobacco Years Smoked: currently vaping daily e-Cigarette/Vaping Use: Currently Using Use of substances other than those prescribed or required for medical reasons: Yes Substance Use Type Other:: Kratom CBD supplement Have you been hit, kicked, punched, or otherwise hurt by someone within the past year? If so, by whom?: No Are you DNR?: No Advance Directives: Yes Advance Directives Information Provided: Yes Advance Directives on File: Yes Advance Directives Date on File: 10/20/21 Recently lost weight without trying: No Eating poorly because of decreased appetite: No Nutrition Risks: No Nutritional Risk Poor oral hygiene: No (upper partial) service: No Current occupational status: unemployed Meds Allergies Allergy/AdvReac Type Severity Reaction Status Date / Time ketorolac [From TORADOL] Allergy Severe severe GI Verified 01/08/22 09:51 pain pyrantel Allergy Mild rash on Verified 01/08/22 09:51 back NSAIDS (Non-Steroidal AdvReac Intermediate GI UPSET Verified 01/08/22 09:51 Anti-Inflamma [NSAIDS (NON-STEROIDAL ANTI-INFLAMMA] Home Medications Medication Instructions Recorded Confirmed Last Taken Type Kratom 5 g PO DAILY 10/19/21 01/05/22 10/19/21 History atorvastatin 20 mg tablet 20 mg PO BEDTIME 11/02/21 01/08/22 Unknown History cholecalciferol (vitamin D3) 50 50 mcg PO DAILY 11/02/21 01/08/22 Unknown History mcg (2,000 unit) capsule fenofibrate 54 mg tablet 54 mg PO DAILY 11/02/21 01/08/22 Unknown History furosemide 20 mg tablet (Lasix) 20 mg PO 2XW 01/05/22 01/05/22 Unknown History tramadol 50 mg tablet 50 mg PO BID PRN 01/05/22 01/05/22 Unknown History Exam Airway Mallampati Class: II TM Dist: >3cm Neck ROM: Full Partial: Upper and Lower Loose/Missing/Broken Teeth: Yes Heart: [id number] Lungs: cta b/l Assessment and Plan Assessment Anesthesia Assessment: Anesthesia Plan Discussed Final Anesthetic Review Family History of Problems with Anesthesia: No History of Problems with Anesthesia: No NPO: Yes ASA Class: III Final Preanesthetic Review: No Changes in Pt Med Stat, Meds/Allgs Chart Reviewed, Consent Obtained/Reviewed and Anes Risks/Benef Reviewed Patient Risk: Intermediate Procedure Risk: Intermediate Assessment/Block/Sedation in SS: Assess/Block/Sedation-SS Anesthetic Plan Anesthetic Plan: GA and Agree w/ Assess. and Plan Disposition: Standard PACU
[2022-01-12 10:09] LABS: COVID-19 Test Negative (Negative)
[2022-01-13] VITALS (18 sets, daily range): BP systolic 118–147; BP diastolic 59–92; PULSE 69–97; RESP 12–19; TEMP 36.3–37.2; O2SAT 91–98
[2022-01-13 06:18] LABS: Glucose, Whole Blood 209 mg/dL (60-115)
[2022-01-13] MEDS: Lactated Ringers 1,000 ML 999 ML IV (06:39)
[2022-01-13] MEDS: Lactated Ringers 1,000 ML 100 ML IVCONT ×3 (06:40→19:45)
--- NOTE | 2022-01-13 07:35 | PC.NURSE ---
patient came in with cpap machine with no mask or tubing. was electronically checked from [employer] and a note put in. verbalized to barn manager and senior bioinformatics scientist.
[2022-01-13 10:59] LABS: Glucose, Whole Blood 337 mg/dL (60-115)
--- NOTE | 2022-01-13 11:03 | PM.PNGS ---
Subjective Subjective Date of Service: 01/14/22 Interval history: Patient has mild incisional pain, but was able to ambulate and use the incentive spirometer. He is tolerating phase 1 bariatric diet Physical Exam Vital Signs: Vital Signs: Last Vital Signs Temp 97.9 F 01/13/22 06:31 Pulse 69 01/13/22 06:31 Resp 16 01/13/22 06:31 BP 123/59 L 01/13/22 06:31 Pulse Ox 97 01/13/22 06:31 BMI result Body Mass Index 33.7 GI: Inspection: Yes normal to inspection, Yes incision (clean, dry and intact) and Yes obesity Extrem: Right lower extremity: normal to inspection (no calf tenderness) Left lower extremity: normal to inspection (no calf tenderness) Objective Data Active Medications Fentanyl (Fentanyl Citrate/Pf 100 Mcg/2 Ml Vial) 50 mcg IVPUSH Q5M PRN; Protocol PRN Reason: Pain, Moderate (Pain Scale 4-6 Hydromorphone HCl (Hydromorphone Hcl 0.5 Mg/0.5 Ml Syringe) 0.5 mg IVPUSH Q5M PRN; Protocol PRN Reason: Pain, Severe (Pain Scale 7-10) Lactated Ringer's (Lr) 1,000 mls @ 100 mls/hr IVCONT .Q10H ELZA Last Admin: 01/13/22 06:40 Dose: 100 mls/hr Documented by: OLIVIA Promethazine HCl 6.25 mg/ (Sodium Chloride) 50.25 mls @ 201 mls/hr IV ONCE PRN PRN Reason: Nausea and Vomiting Ondansetron HCl (Ondansetron Hcl 4 Mg/2 Ml Vial) 4 mg IVPUSH ONCE PRN PRN Reason: Nausea and Vomiting Oxycodone HCl (Oxycodone Hcl Immed Release 5 Mg Tablet) 10 mg PO ONCE PRN PRN Reason: Pain, Mild (Pain Scale 1-3) Labs CBC & Chem 7: 01/14/22 05:38 01/14/22 05:38 Labs: Laboratory Results - last 24 hr 01/13/22 01/13/22 06:12 10:52 POC Glucose 209 H 337 H Procedures Date of Service Date of Service: 01/14/22 Progress Note: A&P Assessment and plan (1) Obesity: Status: Acute (2) BMI 35.0-35.9,adult: Status: Acute (3) Sleep apnea: Status: Acute (4) Severe hyperglycemia due to diabetes mellitus: Status: Acute (5) Hypertension: Status: Acute (6) Hx of pancreatitis: Status: Acute (7) Back pain: Status: Acute (8) GERD (gastroesophageal reflux disease): Status: Acute (9) Lower extremity edema: Status: Acute (10) Hypertriglyceridemia: Status: Acute (11) DDD (degenerative disc disease), lumbar: Status: Acute (12) Anxiety: Status: Acute (13) Steatosis, liver: Status: Acute (14) Liver fibrosis: Status: Acute (15) Intra-abdominal adhesions: Status: Acute (16) Status post sleeve gastrectomy: Status: Acute Assessment and Plan: s/p laparoscopic sleeve gastrectomy, lysis of adhesions repair of diaphragmatic hernia, and gastropexy Doing well Check am labs. If OK, will discharge home? Fall Risk Details Current Medications: Current Medications Fentanyl (Fentanyl Citrate/Pf 100 Mcg/2 Ml Vial) 50 mcg IVPUSH Q5M PRN; Protocol PRN Reason: Pain, Moderate (Pain Scale 4-6 Hydromorphone HCl (Hydromorphone Hcl 0.5 Mg/0.5 Ml Syringe) 0.5 mg IVPUSH Q5M PRN; Protocol PRN Reason: Pain, Severe (Pain Scale 7-10) Lactated Ringer's (Lr) 1,000 mls @ 100 mls/hr IVCONT .Q10H ELZA Last Admin: 01/13/22 06:40 Dose: 100 mls/hr Documented by: Promethazine HCl 6.25 mg/ (Sodium Chloride) 50.25 mls @ 201 mls/hr IV ONCE PRN PRN Reason: Nausea and Vomiting Ondansetron HCl (Ondansetron Hcl 4 Mg/2 Ml Vial) 4 mg IVPUSH ONCE PRN PRN Reason: Nausea and Vomiting Oxycodone HCl (Oxycodone Hcl Immed Release 5 Mg Tablet) 10 mg PO ONCE PRN PRN Reason: Pain, Mild (Pain Scale 1-3) Time Spent With Patient Time: Total time spent is greater than 50% in coordination of care (as documented) at patient's floor/unit and/or counseling patient: Time with patient: less than 15 minutes Quality Stroke Does the patient have a stroke diagnosis?: No VTE Prior VTE?: No VTE Risk Level:: Surgical - moderate VTE Device Contraindication: N/A - Device Ordered VTE Drug Contraindication: Treatment Not Indicated
--- NOTE | 2022-01-13 11:07 | PM.OP ---
Brief Operative Note Date of Service: 01/13/22 Pre-op diagnosis: Severe obesity with comorbidities (see below) Post-op diagnosis: same (& extensive abdominal adhesions) Procedure: INITIAL PATIENT BMI ON PRESENTATION AT OUR OFFICE: 39.8 kg/m2 LAST BMI BEFORE SURGERY: 35.6 kg/m2 COMORBIDITIES: uncontrolled insulin dependent diabetes, hypertension, hyperlipidemia, sleep apnea on CPAP, GERD, anxiety, back pain, liver steatosis, liver fibrosis, pancreatitis, lower extremity edema ?The patient presented to the Weight Management Program with significant obesity that was negatively impacting the patient's comorbidities as listed above.? The program is a phased program with a special focus on preoperative medical weight management to promote substantial weight loss and prepare the patients for the second phase of the program: bariatric surgery. The patient participated in an intensive weekly lifestyle ?intervention and exercise program during which the patient ?has lost between the initial office visit and the last preoperative visit 31.4lbs, or 11% of initial actual body weight. It was deemed appropriate for the patient to now have bariatric surgery. In light of the current Covid-19 pandemic and the well documented strong association of obesity and increased risk of worse outcomes if infected with Covid-19 (REFERENCES:https://pubmed.ncbi.nlm.nih.gov/74686789/,?https://pubmed.ncbi.nlm.nih.gov/94063383/), any delay in undergoing bariatric surgery may lead to the patient's worsening health condition and increased?risk of more severe Covid-19 disease if infected. In addition a recent?study from [facility] published in [facility] on 10/26/2021 ([email or web address]) found that, among patients with obesity, substantial weight loss achieved with surgery was associated with improved outcomes of COVID-19 infection. The findings suggest that obesity can be a modifiable risk factor for the severity of COVID-19 infection. In addition, the patient met the BMI-criteria for bariatric surgery based on the BMI on initial presentation. The patient should not be penalized for achieving such weight loss because ?it is not sustainable long-term without surgical intervention and it was achieved in preparation for bariatric surgery ?under my direction and based on my published research ([email or web address]).[email or web address] and?https://www.soard.org/article/X5908-5912(79)70530-X/pdf) ?that a 10% preoperative weight loss improves long-term weight loss after surgery and reduces perioperative complications.? Insurance carriers such as [employer] have endorsed my recommendations ?and have included in their policies criteria to include a 10% preoperative weight loss requirement. PROCEDURE: Esophago-gastroscopy, laparoscopic lysis of adhesions, laparoscopic sleeve gastrectomy and laparoscopic gastropexy INDICATIONS: This is a 36 year-old male who was electively scheduled for laparoscopic, possibly open sleeve gastrectomy. The risks and complications of the procedure were discussed with the patient in advance, particularly the possibility of ; pulmonary embolism; staple line leak; bleeding; GERD; cardiac, pulmonary, or renal complications; as well as long-term problems such as insufficient weight loss, vitamin deficiency, strictures, or ulcers. The patient understood all the risks, and was in agreement to proceed with surgery. DESCRIPTION OF PROCEDURE: After informed consent was obtained from the patient, the patient was given preoperative antibiotics, and was transferred to the operating room. After successful induction of general anesthesia, pneumatic compression devices were placed on both lower extremities. An upper endoscopy was performed next. The oropharynx and esophagus appeared to be within normal limits. There was no diaphragmatic hernia present, consistent with the findings of the preoperative upper GI. The stomach was entered. Then after all fluid and air were suctioned and the stomach was fully decompressed, the scope was withdrawn and secured in the mid esophagus. The patient was then prepped and draped in the usual sterile manner, and abdominal access was established at the right upper quadrant with the Franky technique. A 12 mm blunt port was inserted, and the abdomen was insufflated with CO2 to a pressure of 15 mmHg. Under direct visualization, additional ports were placed, specifically two 5 mm Versi-step ports to the left upper quadrant, and a 5 mm Versi-Step port to the right upper quadrant. 1% lidocaine plain was used to infiltrate all port sites as well as all fascia defects. There were adhesions in the abdomen from previous pyloromyotomy involving the omentum and the anterior abdominal wall. Those were lysed completely with the ultrasonic device. Following that, the patient was placed in a steep reverse Trendelenburg position. An additional 5 mm port was placed to the right flank for the Mediflex retractor that was used to retract the left lobe of the liver. The gastro-esophageal fat pad was opened with the ultrasonic device (Thunderbeat, Olympus) and the anterior esophagus and hiatus were exposed. The angle of His was opened with the ultrasonic device the fundus of the stomach from any diaphragmatic and splenic attachments. I then opened the gastrocolic ligament between the transverse colon and the greater curvature of the stomach with the ultrasonic device to enter the lesser sac and facilitate the ligation of the short gastric vessels. I started at a mid-point along the greater curvature and using the Thunderbeat, all short gastric vessels were divided all the way to the angle of His until the left kezia was completely dissected at its entirety. I then divided the gastro-colic ligament distally to a distance of about 3-4 cm proximal to the pylorus. The stomach was then divided transversely with one Endo VIVIANA-45 purple, three VIVIANA-60 purple, one VIVIANA-45 orange load and two VIVIANA-60 articulating orange loads using the AEON stapler and loads. Every effort was made that the gastric sleeve had a tubular shape and an even caliber throughout. Once the sleeve resection was completed, the staple line of the gastric sleeve was reinforced with Hemoclips. The resected stomach was retrieved without difficulty from the Franky port. A gastropexy was then performed in order to prevent postoperative GERD and partial gastric volvulus. Several interrupted 2.0 Surgidac sutures were placed between the sleeve's staple line and the previously divided greater omentum and gastro-colic ligament using the Endo-Stitch device. ?An upper endoscopy was performed. There was no narrowing at the GE junction. The scope was easily advanced all the way to the pylorus which was clearly visualized. There was no narrowing anywhere and the sleeve's caliber was even throughout. The sleeve's staple line was inspected and there was no evidence of ischemia, bleeding or dehiscence. At that point the gastroscope was withdrawn from the patient?s mouth while we were decompressing the bowel and the stomach from any remaining air. I looked into the lesser sac to see how the sleeve was situating and it was situating well. There was no bleeding from the staple line, spleen, or short gastric vessels. The Mediflex retractor was removed, and the undersurface of the liver was inspected and there was no bleeding. The patient was placed in supine position. I closed the fascial defect of the 12 mm port site with a figure of eight #1 Polysorb suture. Then 100 cc 0.25 % Marcaine plain with 10 mg of Dexamethasone were used to infiltrate the fascial closure as well as all skin incisions. At this point, the abdomen was deflated, all ports were removed under direct vision, and no bleeding was noted from any of the port sites. The skin incisions were irrigated with saline and were closed with 4-0 absorbable monofilament sutures. Steri-Strips and OpSites were used to cover all incisions. The patient was extubated and was transferred in stable condition to the recovery room for further care. I was present and performed all [place] parts of the procedure. Ms. Walter was the events administrative assistant. There were no residents to assist with this case. Omar Harman MD, PhD, FACS Surgeon: Leonid Harman MD Anesthesia: GETA, local and other (TAP block) Was an Administrative Appeals Tribunal Member used for this Procedure?: Yes Administrative Appeals Tribunal Member: Michelle Walter Estimated blood loss (mL): 20 IV fluids (mL): 3,000 Urine output (mL): 0 (No Chahal to gravity) Pathology: other (Stomach) Condition: stable Disposition: PACU
--- NOTE | 2022-01-13 11:10 | P.DS_ITS ---
DS: Providers Provider Date of Service: 01/14/22 Date of admission: 01/13/22 06:05 Primary care physician: Dwayne Perez [facility] DS: Diagnosis Discharge Diagnosis (1) Obesity: Status: Acute (2) BMI 35.0-35.9,adult: Status: Acute (3) Sleep apnea: Status: Acute (4) Severe hyperglycemia due to diabetes mellitus: Status: Acute (5) Hypertension: Status: Acute (6) Hx of pancreatitis: Status: Acute (7) Back pain: Status: Acute (8) GERD (gastroesophageal reflux disease): Status: Acute (9) Lower extremity edema: Status: Acute (10) Hypertriglyceridemia: Status: Acute (11) DDD (degenerative disc disease), lumbar: Status: Acute (12) Anxiety: Status: Acute (13) Steatosis, liver: Status: Acute (14) Liver fibrosis: Status: Acute (15) Intra-abdominal adhesions: Status: Acute (16) Status post sleeve gastrectomy: Status: Acute DS: Summary Hospital Course Hospital Course: ADMITTING DIAGNOSIS: morbid obesity, FAHAD, IDDM, HTN, hyperlipidemia DISCHARGE DIAGNOSIS: same, s/p laparoscopic sleeve gastrectomy PAST SURGICAL HISTORY: pyloromyotomy PROCEDURE: upper endoscopy, laparoscopic sleeve gastrectomy DISCHARGE SUMMARY: History of Present Illness: The patient is a 36 year-old woman with a BMI of 39.8 kg/m2 and associated co- morbidities as described above. The patient had extensive work-up,lost 42.6 lbs preoperatively and was electively scheduled for laparoscopic, possible open sleeve gastrectomy and gastropexy. Risks and complications of the surgery were discussed with the patient in advance, particularly the possibility of , pulmonary embolism, anastomotic leak, bleeding, bowel injury, GERD, cardiac, renal or pulmonary complications. The patient understood all the risks and was in agreement with the surgical plan. Hospital Course: The patient underwent an uneventful laparoscopic sleeve gastrectomy with gastropexy on the day of admission. Postoperatively, the patient was transferred to the surgical floor. The patient received IV Acetaminophen and IV dilaudid for pain control. Patient was started on bariatric phase 1 diet POD #0. On postoperative day one, the patient was feeling well without nausea, vomiting, fevers, or tachycardia. The patient had some mild incisional pain and the abdomen was soft. On the morning of postoperative day one, the patient was continued on 1 ounce of water or ice every half hour. During the day, the patient did fairly well, having some incisional pain, but able to ambulate adequately and to tolerate liquids well. Since the patient is doing well, we decided that the patient was ready to be discharged. The patient was given instructions to follow-up with me next week and to call my office for any fever over 101, persistent abdominal pain, nausea, vomiting, GERD, symptoms of DVT such as calf tenderness, or leg swelling, or pulmonary embolism such as chest pain or shortness of breath. The patient was also instructed to drink 40-60 ounces of liquids per day using the 1-ounce cups. The patient had been given prescriptions for Tylenol for pain, Zofran prn for nausea, and pantoprazole and carafate previously. The patient was encouraged to ambulate and use the incentive spirometer. The patient was allowed to shower, but no baths, and encouraged to stay active at home. All of these instructions were given to the patient personally. All questions were answered and the patient understood all instructions, the instructions were also given to the patient in print. Time Spent with Patient Time attestation: Total time spent providing and/or coordinating discharge services: Discharge coordination time: Less than 30 minutes Quality: Stroke Does the patient have a stroke diagnosis?: No Physical Exam Vital Signs: Vital Signs: Last Vital Signs Temp 97.3 F 01/13/22 10:49 Pulse 97 01/13/22 10:49 Resp 18 01/13/22 10:49 BP 139/72 01/13/22 10:49 Pulse Ox 96 01/13/22 10:49 BMI result Body Mass Index 33.7 DS: Data Data Completed and Pending Pending studies at discharge: Pending at discharge 01/13/22 10:06 Surgical [PTH] Routine Labs on day of discharge: Laboratory Results - last 24 hr 01/13/22 01/13/22 06:12 10:52 POC Glucose 209 H 337 H Discharge Plan Discharge Anticipated Discharge Date/Time: 01/14/22 10:04 Patient Disposition: Home, Self-Care Discharge Diagnosis: s/p sleeve gastrectomy Referrals: Dwayne Perez, [employer] [Primary Care Provider] - 1 Week Discharge Medications: Continued (DME) Dexcom G6 Transmitter Device See Rx Instructions .ROUTE .MEDSUPPLY Qty: 1 3RF Rx Instructions: use 1 transmitter daily for 3 months (DME) Dexcom G6 Sensor Device See Rx Instructions .ROUTE .MEDSUPPLY Qty: 3 3RF Rx Instructions: use 1 sensor daily for 10 days and then change sensor (DME) blood-glucose meter [FreeStyle Max Lite] Kit See Rx Instructions .ROUTE .MEDSUPPLY Qty: 1 0RF Rx Instructions: six times a day glucagon 0.5 mg/0.1 mL syringe 1 mg subcut Q20M PRN (Reason: hypoglycemia) Qty: 0.2 3RF Rx Instructions: until blood glucose over 70mg/dl (DME) pen needle, diabetic [BD Ultra-Fine Short Pen Needle] 31 gauge x 5/16 needle See Rx Instructions .Route Qty: 100 11RF Rx Instructions: As directed to use three times a day albuterol sulfate 90 mcg/actuation HFA aerosol inhaler 2 puff inhalation Q6H PRN (Reason: shortness of breath or wheezing) 30 Days Qty: 8.5 1RF tramadol 50 mg tablet 50 mg PO BID PRN (Reason: Moderate Pain (Scale Score 5-6)) 0RF Rx Instructions: partial fill upon patient request fenofibrate 54 mg tablet 54 mg PO DAILY 0RF atorvastatin 20 mg tablet 20 mg PO BEDTIME 0RF (DME) FreeStyle Lite Strips Strip See Rx Instructions .ROUTE .MEDSUPPLY Qty: 150 11RF Rx Instructions: As directed four times a day (DME) blood-glucose meter [FreeStyle Lite Meter] Kit See Rx Instructions .ROUTE .MEDSUPPLY Qty: 1 0RF Rx Instructions: As directed (DME) lancets [FreeStyle Lancets] 28 gauge misc See Rx Instructions .ROUTE .MEDSUPPLY Qty: 200 11RF Rx Instructions: 4 times a day pantoprazole 40 mg tablet,delayed release (DR/EC) 40 mg PO DAILY Qty: 30 2RF sucralfate 100 mg/mL suspension 10 ml PO BID Qty: 400 2RF ondansetron HCl 4 mg tablet 4 mg PO Q12H Qty: 20 0RF Held Kratom 5 g PO DAILY 0RF Hold Instructions: Discuss restart with Dr Harman Label Comments: Patient report trying to taper off of it furosemide [Lasix] 20 mg tablet 20 mg PO 2XW 0RF Hold Instructions: Discuss restart with Dr Harmna Label Comments: took 40 mg this AM Humulin R U-500 (Conc) Kwikpen 500 unit/mL (3 mL) insulin pen See Rx Instructions subcut TID 30 Days Qty: 24 6RF Hold Instructions: Discuss dosage with Dr Harman Rx Instructions: 110 units prior to breakfast and lunch and 95 units prior to dinner subcut 3 times a day; Discontinued cholecalciferol (vitamin D3) 125 mcg (5,000 unit) capsule 125 mcg PO DAILY Qty: 30 2RF vitamin A palmitate 10,000 unit capsule 10,000 unit PO .COMPLEX Qty: 30 1RF Rx Instructions: 10,000 units PO one per day; cholecalciferol (vitamin D3) 50 mcg (2,000 unit) capsule 50 mcg PO DAILY 0RF polyethylene glycol 3350 [Miralax] 17 gram powder in packet 17 g PO DAILY Qty: 14 0RF Rx Instructions: Mix each packet with 8oz of water and do 7 packets on 01/11/22 and another 7 packets on 01/12/22 Discharge Orders: Discharge Order (Routine); Ordered 01/14/22 Ordered By: Michelle Walter Diet: other Activity on Discharge: No heavy lifting Stand Alone Forms: Patient Portal Discharge page Care Plan Goals: weight loss Health Concerns: obesity Plan of Treatment: No tub baths, sex or returning to work until discussed at first post op appointment. No exercise, alcohol, tobacco or illegal drug use. Continue to use incentive spirometer hourly while awake. Walk in home for 5- 10 minutes every 2 hours during the first week. Continue phase 1 diet today and start phase 2 diet tomorrow morning. Follow all instructions in the bariatric handbook and call with any questions. 1. Please call your doctor or come back to the emergency room should any new symptoms arise. 2. You will receive a courtesy call from [facility] 24-48 hours a fter discharge. 3. Activity: abstain from alcohol, practice limited stair climbing, no bending, no driving, no exercise, no illicit substances, no lifting, no sex, no tub bath, no work. 4. Diet: continue as discussed with Dr. Harman. 5. Dressing Change/Wound Care: Do not change or remove surgical dressings unless they are wet or soiled. 6. Call your doctor if: - Your temperature exceeds 101.5 F - You experience excessive pain or swelling - You have an unexpected reaction to medication - You have excessive bleeding - You experience continued vomiting/nausea - Your incision begins to separate - Your incision shows signs of infection such as increased redness, swelling, excessive pain, heat, or drainage (light blood or clear fluid is normal) 7. General instructions: No lifting greater than 5 lbs for the next 4 weeks[address] within 24 hours of taking narcotic pain medications. If you do not move your bowels in the next 2 days, please take milk of magnesia over the counter. Please follow the post op diet and do not advance your diet until you are seen in the office in about 2 weeks. Please walk around your home every hour or two to prevent blood clots from forming in your legs. You do not need to wake from sleeping to walk. Please sleep in a bed or couch to prevent kinking at the hips and knees. Please take your incentive spirometer (your lung heat treat inspector) home with you and use it for the next few days to prevent pneumonias. You may shower, no hot tubs, baths or swimming pools. Please call the office with any questions or concerns such as increasing abdominal pain, fever, chills, shortness of breath, chest pain, leg pain or swelling, or redness or drainage from your incisions. Do not hesitate to contact the office with any questions at . The patient's medical history has been reviewed and they are considered low risk for post op DVT and therefore DVT prophylaxis is not considered necessary. Travel after surgery was reviewed. The patient has not disclosed any travel plans during the first 30 days after surgery and they have been advised that within the first 30 days after surgery any bus, plane, train or car travel over 2 hours in duration is contraindicated due to the possibility of developing blood clots from immobility. Any travel, needs to include periods of ambulation of 10 minutes in duration every 2 hours. The patient was instructed to discuss any plans for travel during this period with their bariatric surgeon. Assessment: stable, post op sleeve gastrectomy
[2022-01-13 11:22] LABS: Hematocrit 42.9 % (42.0-52.0)
[2022-01-13 11:33] LABS: Anion Gap 14 (12-20); Blood Urea Nitrogen 15 mg/dL (9-16); Calcium 9.1 mg/dL (8.4-10.2); Carbon Dioxide 25 mmol/L (22-29); Chloride 102 mmol/L (96-108); Creatinine Clr Calc Pharmacy 134.1; Estimated Glomerular Filt Rate > 60; Glucose Random 354 mg/dL (60-115); Potassium 5.4 mmol/L (3.3-5.1); Sodium 136 mmol/L (135-145)
[2022-01-13] MEDS: Famotidine/PF 20 MG/2 ML VIAL IVPUSH ×2 (11:34→21:26)
[2022-01-13] MEDS: ondansetron HCL 4 MG/2 ML VIAL IVPUSH ×2 (11:35→16:43)
[2022-01-13] MEDS: HYDROmorphone HCl 0.5 MG/0.5 ML SYRINGE IVPUSH (11:38)
[2022-01-13] MEDS: ceFAZolin Sodium/Dextrose,Iso 2 GM/50 ML PIGGYBACK IV (13:46)
[2022-01-13 14:16] LABS: Glucose, Whole Blood 325 mg/dL (60-115)
[2022-01-13] MEDS: Insulin Lispro 100 UNIT/ML 3 ML VIAL SUBCUT ×3 (14:22→21:26)
[2022-01-13 16:06] LABS: Glucose, Whole Blood 309 mg/dL (60-115)
[2022-01-13] MEDS: HYDROmorphone HCl 0.5 MG/0.5 ML SYRINGE 0.25 MG IVPUSH ×2 (16:43→22:04)
[2022-01-13 17:56] LABS: Glucose, Whole Blood 264 mg/dL (60-115)
[2022-01-13 20:15] LABS: Glucose, Whole Blood 261 mg/dL (60-115)
[2022-01-13] MEDS: 0.9 % Sodium Chloride Flush 3 ML SYRINGE IVFLUSH (21:27)
[2022-01-13] MEDS: Metoclopramide HCl 10 MG/2 ML VIAL IVPUSH (22:15)
[2022-01-14] VITALS: BP 151/91; PULSE 81; RESP 16; TEMP 36.7; O2SAT 98
[2022-01-14 00:50] LABS: Glucose, Whole Blood 219 mg/dL (60-115)
[2022-01-14] MEDS: Insulin Lispro 100 UNIT/ML 3 ML VIAL SUBCUT ×2 (01:02→05:35)
[2022-01-14] MEDS: ondansetron HCL 4 MG/2 ML VIAL IVPUSH ×2 (01:02→07:30)
[2022-01-14 04:00] VITALS: BP 132/83; PULSE 70; RESP 16; TEMP 36.5; O2SAT 94
[2022-01-14 05:04] LABS: Glucose, Whole Blood 233 mg/dL (60-115)
[2022-01-14] MEDS: Lactated Ringers 1,000 ML 100 ML IVCONT (05:34)
[2022-01-14 05:49] LABS: MANUAL DIFF FLAG NO
[2022-01-14 05:56] LABS: Basophils Percent Auto 0.1 % (0-2); Hematocrit 40.5 % (42.0-52.0); Hemoglobin 13.6 g/dl (14.0-18.0); Imm Gran Abs Auto 0.06 X10*3/uL (0.00-0.03); Imm Gran Pct Auto 0.4 % (0.0-0.4); Lymphocytes Percent Auto 6.7 % (20-40); Mean Corpuscular HGB Conc 33.6 g/dl (31.0-36.0); Mean Corpuscular Volume 89.2 fL (80.0-98.0); Mean Platelet Volume 10.1 fL (9.4-12.4); Monocytes Absolute Auto 1.1 X10*3/uL (0.1-1.2); Monocytes Percent Auto 7.4 % (2-11); Neutrophils Absolute Auto 12.5 x10*3/uL (2.0-8.3); Neutrophils Percent Auto 85.4 % (45-73); Platelet Count 320 X10*3/uL (160-400); Red Blood Count 4.54 X10*6/uL (4.60-5.80); Red Cell Distribution Width 13.4 % (11.0-16.0); White Blood Count 14.7 X10*3/uL (4.8-10.8)
[2022-01-14 06:14] LABS: Anion Gap 12 (12-20); Blood Urea Nitrogen 15 mg/dL (9-16); Calcium 9.6 mg/dL (8.4-10.2); Carbon Dioxide 28 mmol/L (22-29); Chloride 103 mmol/L (96-108); Creatinine Clr Calc Pharmacy 163.3; Estimated Glomerular Filt Rate > 60; Glucose Random 230 mg/dL (60-115); Potassium 4.1 mmol/L (3.3-5.1); Sodium 139 mmol/L (135-145)
[2022-01-14] MEDS: 0.9 % Sodium Chloride Flush 3 ML SYRINGE IVFLUSH (07:30)
[2022-01-14] MEDS: Famotidine/PF 20 MG/2 ML VIAL IVPUSH (07:30)
[2022-01-14 07:47] LABS: Glucose, Whole Blood 223 mg/dL (60-115)
[2022-01-14 08:00] VITALS: BP 128/70; PULSE 74; RESP 18; TEMP 36.8; O2SAT 97
--- NOTE | 2022-01-14 09:54 | MHC.CM.PN ---
EMR REVIEWED, PT ADMITTED S/P LAP SLEEVE GASTRECTOMY, CM MET W/PT WHO REPORTS HE LIVES W/ AND 3MOS OLD SON, PT REPORTS HE IS INDEP W/ALL CARE, USES A CPAP FOR ONLY DME AND NO HOME SERVICES, PT VERIFIES PCP ELIZABETH ULLOA, PFIZER VACCINE X3, HCP VERIFIED AND ON FILE FROM PREVIOUS ADMISSION. D/C PLAN: HOME TODAY SELF-CARE W/OUTPT FOLLOW-UP W/SURGEON, FOR TRANSPORT.
--- NOTE | 2022-01-14 11:11 | HO.POSTANES ---
Post Anesthesia Evaluation Post Anesthesia Evaluation Vital Signs: Vital Signs Temp Pulse Resp BP Pulse Ox 01/14/22 08:00 98.3 F 74 18 128/70 97 01/14/22 04:00 97.7 F 70 16 132/83 94 01/14/22 00:00 98.0 F 81 16 151/91 H 98 Anesthesia: General Endotracheal-GETA Mental Status: Awake Pain Control: Satisfactory Nausea/Vomiting: None Hydration: Adequate Anesthesia-Related Issues: No Anes. Related Issues
== END 2022-01-14 10:17 | disposition home or self-care (01) | DRG 403 ==
LOC: HO.SSSA 11:10 → HO.S3 11:52
PROVIDERS: Nurse Practitioner Gerontology; Physician Assistant; Physician Assistant Surgical; Admitting Provider Surgery; PCP Nurse Practitioner Family; Visit Provider Surgery
PROC: 0DB64Z3 Excision of Stomach, Percutaneous Endoscopic Approach, Vertical (ICD-10-PCS; CPT 43845; principal; 2022-01-13 07:30)
DX: E66.01 Morbid (severe) obesity due to excess calories (principal); K85.90 Acute pancreatitis without necrosis or infection, unspecified; K74.00 Hepatic fibrosis, unspecified; K76.0 Fatty (change of) liver, not elsewhere classified; I10 Essential (primary) hypertension; G47.30 Sleep apnea, unspecified; K66.0 Peritoneal adhesions (postprocedural) (postinfection); Z68.35 Body mass index [BMI] 35.0-35.9, adult; K21.9 Gastro-esophageal reflux disease without esophagitis; E78.5 Hyperlipidemia, unspecified; E11.65 Type 2 diabetes mellitus with hyperglycemia; F41.9 Anxiety disorder, unspecified; M54.9 Dorsalgia, unspecified; Z87.891 Personal history of nicotine dependence; Z88.6 Allergy status to analgesic agent; Z79.4 Long term (current) use of insulin; Z79.899 Other long term (current) drug therapy
CPT/HCPCS: 36415; 80048; 80053; 80061; 82947; 83036; 83525; 83721; 84443; 85014; 85018; 85025; 85610; 85730; 86140; 86850; 86900; 86901; 87635; 88307; 88342; 94660; 99024; A4649; J0131; J0690; J1100; J1170; J2250; J2405; J2550; J2765; J3010

== ENCOUNTER → 2022-01-18 08:08 | Outpatient (BNVA) | payer OTHER, SELFPAY | PROVIDERS: PCP Nurse Practitioner Family; Referring Provider Nurse Practitioner Family; Visit Provider Surgery | DX: E66.9 Obesity, unspecified (principal); Z68.32 Body mass index [BMI] 32.0-32.9, adult; Z90.3 Acquired absence of stomach [part of]; Z98.84 Bariatric surgery status; Z71.3 Dietary counseling and surveillance | CPT/HCPCS: 99212 ==

== ENCOUNTER → 2022-02-17 08:10 | Outpatient (BNVA) | payer OTHER, SELFPAY | PROVIDERS: PCP Nurse Practitioner Family; Visit Provider Physician Assistant Surgical | DX: E66.9 Obesity, unspecified (principal); Z68.30 Body mass index [BMI] 30.0-30.9, adult; K58.2 Mixed irritable bowel syndrome; Z90.3 Acquired absence of stomach [part of] | CPT/HCPCS: 99212 ==

== ENCOUNTER → 2022-03-02 08:09 | Outpatient (BNVA) | payer OTHER, SELFPAY | PROVIDERS: PCP Nurse Practitioner Family; Visit Provider Physician Assistant Surgical | DX: E66.9 Obesity, unspecified (principal); Z68.29 Body mass index [BMI] 29.0-29.9, adult | CPT/HCPCS: 99212 ==

== ENCOUNTER → 2022-04-06 10:13 | Outpatient (BNVA) | payer OTHER, SELFPAY | PROVIDERS: PCP Nurse Practitioner Family; Visit Provider Physician Assistant Surgical | DX: Z13.89 Encounter for screening for other disorder (principal) ==

== ENCOUNTER 2022-04-09 11:31 | Outpatient (REF) | payer OTHER, SELFPAY ==
[2022-04-09 11:45] LABS: MANUAL DIFF FLAG NO
[2022-04-09 13:18] LABS: INTERNATIONAL NORM RATIO 1.1 (0.9-1.1); Prothrombin Time 12.5 SEC (9.9-13.0)
[2022-04-09 13:19] LABS: Estimated Average Glucose 114 mg/dL; Hemoglobin A1c % 5.6 %
[2022-04-09 13:21] LABS: Partial Thromboplastin Time 36.6 SEC (24.1-38.0)
[2022-04-09 13:23] LABS: Basophils Absolute Auto 0.1 X10*3/uL (0.0-0.2); Basophils Percent Auto 0.7 % (0-2); Eosinophils Absolute Auto 0.1 X10*3/uL (0.0-0.4); Eosinophils Percent Auto 0.8 % (0-4); Hematocrit 40.3 % (42.0-52.0); Hemoglobin 13.6 g/dl (14.0-18.0); Imm Gran Abs Auto 0.03 X10*3/uL (0.00-0.03); Imm Gran Pct Auto 0.3 % (0.0-0.4); Lymphocytes Absolute Auto 1.7 X10*3/uL (1.2-4.9); Lymphocytes Percent Auto 19.4 % (20-40); Mean Corpuscular HGB Conc 33.7 g/dl (31.0-36.0); Mean Platelet Volume 10.9 fL (9.4-12.4); Monocytes Absolute Auto 0.6 X10*3/uL (0.1-1.2); Monocytes Percent Auto 6.8 % (2-11); Neutrophils Absolute Auto 6.3 x10*3/uL (2.0-8.3); Platelet Count 399 X10*3/uL (160-400); Red Blood Count 4.53 X10*6/uL (4.60-5.80); Red Cell Distribution Width 13.3 % (11.0-16.0); White Blood Count 8.7 X10*3/uL (4.8-10.8)
[2022-04-09 13:37] LABS: Alanine Aminotransferase 9 U/L (0-40); Albumin Level 4.1 g/dL (3.5-5.0); Alkaline Phosphatase 97 U/L (39-117); Anion Gap 13 (12-20); Aspartate Amino Transferase 11 U/L (5-37); Bilirubin Total 0.8 mg/dL (0.0-1.0); Blood Urea Nitrogen 18 mg/dL (9-16); Calcium 9.1 mg/dL (8.4-10.2); Carbon Dioxide 25 mmol/L (22-29); Chloride 105 mmol/L (96-108); Estimated Glomerular Filt Rate > 60; Glucose Random 225 mg/dL (60-115); Sodium 139 mmol/L (135-145); Total Protein 6.8 g/dL (6.5-8.0)
== END 2022-04-09 11:32 | disposition home or self-care (01) ==
LOC: HO.LAB 11:31
PROVIDERS: Internal Medicine Endocrinology, Diabetes & Metabolism; Absent Provider Nurse Practitioner Gerontology; PCP Nurse Practitioner Family; Visit Provider Nurse Practitioner Family
DX: Z01.818 Encounter for other preprocedural examination (principal); E11.65 Type 2 diabetes mellitus with hyperglycemia
CPT/HCPCS: 36415; 80053; 83036; 85025; 85610; 85730

== ENCOUNTER → 2022-05-12 09:30 | Outpatient (BNVA) | payer OTHER, SELFPAY | PROVIDERS: PCP Nurse Practitioner Family; Referring Provider Physician Assistant Surgical; Visit Provider Dietitian, Registered | DX: E66.3 Overweight (principal); Z68.27 Body mass index [BMI] 27.0-27.9, adult | CPT/HCPCS: 97803 ==